=== PATIENT | male | born 1975 | race Caucasian/White ===

== ENCOUNTER 2017-09-02 19:09 | Inpatient (IN) | payer BC ==
[2017-09-02] MEDS ORDERED: ONDANSETRON 4 MG/2 ML VIAL IVP STA (21:13)
[2017-09-02] MEDS ORDERED: HYDROmorphone 2 MG/ML 1 ML SYRINGE IVP STA (21:13)
[2017-09-02] MEDS ORDERED: SODIUM CHLORIDE 0.9% 1,000 ML IV STA (21:13)
--- NOTE | 2017-09-02 21:29 | ED ---
General Adult HPI <Zeke Valladares - Last Filed: 09/02/17 22:24> - General Source: patient, RN notes reviewed Mode of arrival: ambulatory Limitations: no limitations <Reji Ruiz - Last Filed: 09/02/17 22:52> - General Chief complaint: Extremity Problem,Nontraumatic Stated complaint: Left Arm Infection Time Seen by Provider: 09/02/17 21:00 - History of Present Illness Initial comments: Patient's a 42-year-old male who presents emergency room today with a chief complaint of infection to the left elbow. He does admit that it started with bursitis 3 weeks ago. States she was given cortisone injection. He states that he noticed some redness and some swelling this past week. States he has seen Dr. Bruce and is worried about possible MRSA infection. He states he's had MRSA in the past. Patient does admit that he started Bactrim yesterday but feels that there is increased pain and swelling today to left elbow. Currently rates pain 7/10. Patient does admit that the pain is worse with any movements. He denies any other complaint currently. Patient denies any recent shortness of breath, chest pain, back pain, abdominal pain, nausea or vomiting, numbness or tingling, headaches or visual changes, or any other complaints. (Reji Ruiz) - Related Data Home Medications Medication Instructions Recorded Confirmed 5-Hydroxytryptophan (5-Htp) [5-Htp 50 mg PO DAILY 09/02/17 09/02/17 (Natrol)] Acetaminophen [Tylenol Arthritis] 650 mg PO Q4H PRN 09/02/17 09/02/17 Atorvastatin [Lipitor] 40 mg PO HS 09/02/17 09/02/17 Cholecalciferol [Vitamin D3] 2,000 unit PO DAILY 09/02/17 09/02/17 Meloxicam [Mobic] 15 mg PO DAILY 09/02/17 09/02/17 Sulfamethox-Tmp 800-160Mg [Bactrim 1 tab PO BID 09/02/17 09/02/17 DS 800-160 mg] Venlafaxine HCl [Effexor XR] 75 mg PO DAILY 09/02/17 09/02/17 rOPINIRole HCL [Requip] 1 mg PO HS 09/02/17 09/02/17 Allergies Allergy/AdvReac Type Severity Reaction Status Date / Time No Known Allergies Allergy Verified 09/02/17 21:24 Review of Systems ROS Other: All systems not noted in ROS Statement are negative. <ValladaresZeke - Last Filed: 09/02/17 22:24> ROS Other: All systems not noted in ROS Statement are negative. <Reji Ruiz - Last Filed: 09/02/17 22:52> ROS Statement: Those systems with pertinent positive or pertinent negative responses have been documented in the HPI. Past Medical History Past Medical History: No Reported History History of Any Multi-Drug Resistant Organisms: MRSA Date of last positivie culture/infection: 09-12-15 MDRO Source:: Right thigh abcess Past Surgical History: Orthopedic Surgery Additional Past Surgical History / Comment(s): brain surgery Past Anesthesia/Blood Transfusion Reactions: No Reported Reaction Past Psychological History: Anxiety Smoking Status: Never smoker Past Alcohol Use History: None Reported Past Drug Use History: None Reported - Past Family History Mother Family Medical History: No Reported History <RuizReji - Last Filed: 09/02/17 22:52> General Exam <Zeke Valladares - Last Filed: 09/02/17 22:24> Limitations: no limitations <Reji Ruiz - Last Filed: 09/02/17 22:52> - General Exam Comments Initial Comments: General: The patient is awake and alert, in no distress, and does not appear acutely ill. Neck: The neck is supple, there is no tenderness or JVD. Cardiovascular: There is a regular rate and rhythm. No murmur, rub or gallop is appreciated. Respiratory: Lungs are clear to auscultation, respirations are non-labored, breath sounds are equal. No wheezes, stridor, rales, or rhonchi. Musculoskeletal: Patient does have moderate swelling to the left elbow some redness to the posterior aspect. He shows limited range of motion with flexion and extension -10 both directions. Patient's sensations are intact with pulses equal bilaterally 2+. There is mild warmth to the posterior aspect. Mild tenderness over the posterior aspect of left elbow. Neurological: A&O x 3. CN II-XII intact, There are no obvious motor or sensory deficits. Coordination appears grossly intact. Speech is normal. Skin: There is mild redness to the posterior aspect of left elbow. No sign of the tick streaking at this time. Psychiatric: Normal mood and affect. (Reji Ruiz) Vital Signs 09/02/17 09/02/17 19:55 22:45 Temperature 98.2 F Pulse Rate 85 65 Respiratory 18 18 Rate Blood Pressure 145/95 161/80 O2 Sat by Pulse 97 95 Oximetry Medical Decision Making - Lab Data Result diagrams: 09/02/17 21:44 09/02/17 21:44 <Zeke Valladares - Last Filed: 09/02/17 22:24> - Lab Data Result diagrams: 09/02/17 21:44 09/02/17 21:44 <Reji Ruiz - Last Filed: 09/02/17 22:52> - Medical Decision Making Patient was reevaluated by myself, Dr. Valladares. Patient does have area of cellulitis left elbow approximately 8 x 12 cm. There is warmth and tenderness. Patient was already started on antibiotics as an outpatient however symptoms worsen. Case was discussed in detail with practitioner Minoo, who will admit for Dr. olsen, covering for Dr. Hubbard. Patient does not meet sepsis criteria at this time. (Zeke Valladares) - Lab Data Lab Results 09/02/17 09/02/17 09/02/17 Range/Units 21:44 21:44 21:44 WBC 10.3 (3.8-10.6) k/uL RBC 5.20 (4.30-5.90) m/uL Hgb 14.7 (13.0-17.5) gm/dL Hct 44.9 (39.0-53.0) % MCV 86.3 (80.0-100.0) fL MCH 28.2 (25.0-35.0) pg MCHC 32.7 (31.0-37.0) g/dL RDW 16.3 H (11.5-15.5) % Plt Count 234 (150-450) k/uL Neutrophils % 82 % Lymphocytes % 11 % Monocytes % 5 % Eosinophils % 1 % Basophils % 0 % Neutrophils # 8.4 H (1.3-7.7) k/uL Lymphocytes # 1.1 (1.0-4.8) k/uL Monocytes # 0.5 (0-1.0) k/uL Eosinophils # 0.1 (0-0.7) k/uL Basophils # 0.0 (0-0.2) k/uL Anisocytosis Slight PT (9.0-12.0) sec INR (<1.2) APTT (22.0-30.0) sec Sodium 139 (137-145) mmol/L Potassium 4.9 (3.5-5.1) mmol/L Chloride 104 (98-107) mmol/L Carbon Dioxide 23 (22-30) mmol/L Anion Gap 12 mmol/L BUN 27 H (9-20) mg/dL Creatinine 0.90 (0.66-1.25) mg/dL Est GFR (MDRD) Af Amer >60 (>60 ml/min/1.73 sqM) Est GFR (MDRD) Non-Af >60 (>60 ml/min/1.73 sqM) Glucose 106 H (74-99) mg/dL Plasma Lactic Acid [place] 0.7 (0.7-2.0) mmol/L Calcium 9.6 (8.4-10.2) mg/dL Total Bilirubin 0.1 L (0.2-1.3) mg/dL AST 22 (17-59) U/L ALT 39 (21-72) U/L Alkaline Phosphatase 100 (38-126) U/L Total Protein 7.2 (6.3-8.2) g/dL Albumin 4.3 (3.5-5.0) g/dL 09/02/17 Range/Units 21:44 WBC (3.8-10.6) k/uL RBC (4.30-5.90) m/uL Hgb (13.0-17.5) gm/dL Hct (39.0-53.0) % MCV (80.0-100.0) fL MCH (25.0-35.0) pg MCHC (31.0-37.0) g/dL RDW (11.5-15.5) % Plt Count (150-450) k/uL Neutrophils % % Lymphocytes % % Monocytes % % Eosinophils % % Basophils % % Neutrophils # (1.3-7.7) k/uL Lymphocytes # (1.0-4.8) k/uL Monocytes # (0-1.0) k/uL Eosinophils # (0-0.7) k/uL Basophils # (0-0.2) k/uL Anisocytosis PT 9.3 (9.0-12.0) sec INR 0.9 (<1.2) APTT 22.5 (22.0-30.0) sec Sodium (137-145) mmol/L Potassium (3.5-5.1) mmol/L Chloride (98-107) mmol/L Carbon Dioxide (22-30) mmol/L Anion Gap mmol/L BUN (9-20) mg/dL Creatinine (0.66-1.25) mg/dL Est GFR (MDRD) Af Amer (>60 ml/min/1.73 sqM) Est GFR (MDRD) Non-Af (>60 ml/min/1.73 sqM) Glucose (74-99) mg/dL Plasma Lactic Acid [place] (0.7-2.0) mmol/L Calcium (8.4-10.2) mg/dL Total Bilirubin (0.2-1.3) mg/dL AST (17-59) U/L ALT (21-72) U/L Alkaline Phosphatase (38-126) U/L Total Protein (6.3-8.2) g/dL Albumin (3.5-5.0) g/dL Disposition <Zeke Valladares - Last Filed: 09/02/17 22:24> Time of Disposition: 22:32 <Reji Ruiz - Last Filed: 09/02/17 22:52> Clinical Impression: Cellulitis, Failure of outpatient treatment Disposition: HOME SELF-CARE Condition: Stable Referrals: Florentin Hubbard MD [Primary Care Provider] - 1-2 days
[2017-09-02 21:54] LABS: Anisocytosis Slight; Basophils % (A) 0 %; Eosinophils # (A) 0.1 k/uL (0-0.7); Eosinophils % (A) 1 %; HCT 44.9 % (39.0-53.0); HGB 14.7 gm/dL (13.0-17.5); Lymphocytes # (A) 1.1 k/uL (1.0-4.8); Lymphocytes % (A) 11 %; MCH 28.2 pg (25.0-35.0); MCHC 32.7 g/dL (31.0-37.0); MCV 86.3 fL (80.0-100.0); Mean Platelet Volume 7.5; Monocytes # (A) 0.5 k/uL (0-1.0); Monocytes % (A) 5 %; Neutrophils # (A) 8.4 k/uL (1.3-7.7); Neutrophils % (A) 82 %; Platelet Count 234 k/uL (150-450); RDW 16.3 % (11.5-15.5); WBC 10.3 k/uL (3.8-10.6)
[2017-09-02 22:05] LABS: INR 0.9 (<1.2); Partial Thromboplastin Time 22.5 sec (22.0-30.0); Prothrombin Time 9.3 sec (9.0-12.0)
[2017-09-02 22:06] LABS: ALT 39 U/L (21-72); AST 22 U/L (17-59); Albumin 4.3 g/dL (3.5-5.0); Alkaline Phosphatase 100 U/L (38-126); Anion Gap 12 mmol/L; Blood Urea Nitrogen 27 mg/dL (9-20); Calcium 9.6 mg/dL (8.4-10.2); Carbon Dioxide 23 mmol/L (22-30); Chloride 104 mmol/L (98-107); Glucose 106 mg/dL (74-99); Potassium 4.9 mmol/L (3.5-5.1); Sodium 139 mmol/L (137-145); Total Bilirubin 0.1 mg/dL (0.2-1.3); Total Protein 7.2 g/dL (6.3-8.2)
[2017-09-02] MEDS ORDERED: VANCOMYCIN IV PER PHARMACY 1 EACH MISC MISCELLANE PRN (22:11)
--- NOTE | 2017-09-02 22:11 | XR ---
EXAMINATION TYPE: XR elbow complete LT DATE OF EXAM: 09/02/2017 COMPARISON: None HISTORY: Pain and swelling TECHNIQUE: 3 views. FINDINGS: There is soft tissue swelling posterior to the elbow joint. I see no joint effusion. I see no fractur e nor dislocation. Joint spaces are fairly normal. IMPRESSION: Posterior soft tissue swelling. No fracture seen.
[2017-09-02] MEDS ORDERED: VANCOMYCIN 2,000 MG in SODIUM CHLORIDE 0.9% 500 ML IVPB STA (22:18)
[2017-09-02] MEDS ORDERED: ONDANSETRON 4 MG/2 ML VIAL IVP PRN (22:52)
[2017-09-02] MEDS ORDERED: HYDROcodone/APAP 5-325MG 1 EACH TAB PO PRN (22:52)
[2017-09-02] MEDS ORDERED: IBUPROFEN 600 MG TAB PO PRN (22:52)
[2017-09-02] MEDS ORDERED: NALOXONE 0.4 MG/ML 1 ML VIAL IV PRN (22:52)
[2017-09-02] MEDS: SODIUM CHLORIDE 0.9% 1,000 ML IV SCH (23:13)
[2017-09-03] MEDS: HYDROmorphone 0.5 MG/0.5 ML SYRINGE IVP PRN ×2 (00:13→07:43)
[2017-09-03] MEDS: SODIUM CHLORIDE 0.9% 1,000 ML IV SCH ×2 (08:14→20:54)
[2017-09-03] MEDS: VANCOMYCIN 1,750 MG in SODIUM CHLORIDE 0.9% 250 ML IVPB SCH ×2 (08:15→15:20)
[2017-09-03] MEDS ORDERED: HYDROXYTRYPTOPHAN 50 MG PO SCH (09:00)
[2017-09-03] MEDS: ACETAMINOPHEN TAB 325 MG TAB PO PRN (09:13)
[2017-09-03] MEDS: VENLAFAXINE HCL ER 75 MG CAP PO SCH (09:15)
[2017-09-03] MEDS: CHOLECALCIFEROL 1,000 UNIT TAB PO SCH (09:15)
[2017-09-03] MEDS: ENOXAPARIN 40 MG/0.4 ML SYRINGE SQ SCH (09:15)
[2017-09-03 09:22] LABS: Anisocytosis Slight; Basophils % (A) 0 %; Eosinophils % (A) 0 %; HCT 45.2 % (39.0-53.0); HGB 14.2 gm/dL (13.0-17.5); Hypochromasia Slight; Lymphocytes % (A) 12 %; MCH 28.7 pg (25.0-35.0); MCHC 31.5 g/dL (31.0-37.0); MCV 91.1 fL (80.0-100.0); Mean Platelet Volume 7.4; Monocytes # (A) 0.3 k/uL (0-1.0); Monocytes % (A) 4 %; Neutrophils # (A) 7.4 k/uL (1.3-7.7); Neutrophils % (A) 83 %; Platelet Count 203 k/uL (150-450); RBC 4.97 m/uL (4.30-5.90); RDW 16.6 % (11.5-15.5); WBC 8.9 k/uL (3.8-10.6)
[2017-09-03 09:42] LABS: ALT 33 U/L (21-72); AST 19 U/L (17-59); Albumin 3.8 g/dL (3.5-5.0); Alkaline Phosphatase 92 U/L (38-126); Anion Gap 12 mmol/L; Blood Urea Nitrogen 16 mg/dL (9-20); Calcium 9.3 mg/dL (8.4-10.2); Carbon Dioxide 23 mmol/L (22-30); Chloride 105 mmol/L (98-107); Glucose 141 mg/dL (74-99); Potassium 4.5 mmol/L (3.5-5.1); Sodium 140 mmol/L (137-145); Total Bilirubin 0.4 mg/dL (0.2-1.3); Total Protein 6.5 g/dL (6.3-8.2)
[2017-09-03] MEDS ORDERED: KETOROLAC 30 MG/ML 1 ML VIAL IVP STA (09:48)
--- NOTE | 2017-09-03 10:23 | P.CNOR ---
History of Present Illness - [facility] Consult date: 09/03/17 Consult reason: other (Olecrenon bursitis left elbow) History of present illness: This is a 42-year-old male who was last seen her office on 09/01/2017 with complaint of left elbow pain. He had some pain and swelling to the elbow for the past several weeks. He states that the olecranon bursa was injected with cortisone by her family physician 1 week ago. The elbow then developed some redness and increased swelling. He was placed in a removable splint on Friday and was placed on Bactrim DS. He is advised to follow-up in our office on for reevaluation. He presented to the emergency department yesterday with worsening of his symptoms. He was admitted to internal medicine. We're consulted for orthopedic evaluation. He is currently on vancomycin. Past Medical History Past Medical History: No Reported History History of Any Multi-Drug Resistant Organisms: MRSA Year Discovered:: 09-12-15 MDRO Source:: Right thigh abcess Past Surgical History: Orthopedic Surgery Additional Past Surgical History / Comment(s): brain surgery 2011 Past Anesthesia/Blood Transfusion Reactions: No Reported Reaction Past Psychological History: Anxiety Smoking Status: Never smoker Past Alcohol Use History: None Reported Past Drug Use History: None Reported - Past Family History Mother Family Medical History: No Reported History Medications and Allergies Home Medications Medication Instructions Recorded Confirmed Type 5-Hydroxytryptophan (5-Htp) [5-Htp 50 mg PO DAILY 09/02/17 09/02/17 History (Natrol)] Acetaminophen [Tylenol Arthritis] 650 mg PO Q4H PRN 09/02/17 09/02/17 History Atorvastatin [Lipitor] 40 mg PO HS 09/02/17 09/02/17 History Cholecalciferol [Vitamin D3] 2,000 unit PO DAILY 09/02/17 09/02/17 History Meloxicam [Mobic] 15 mg PO DAILY 09/02/17 09/02/17 History Sulfamethox-Tmp 800-160Mg [Bactrim 1 tab PO BID 09/02/17 09/02/17 History DS 800-160 mg] Venlafaxine HCl [Effexor XR] 75 mg PO DAILY 09/02/17 09/02/17 History rOPINIRole HCL [Requip] 1 mg PO HS 09/02/17 09/02/17 History Allergies Allergy/AdvReac Type Severity Reaction Status Date / Time No Known Allergies Allergy Verified 09/02/17 21:24 Physical Examination This is a pleasant 42-year-old male in no acute distress. He is alert and oriented 3. Exam of the left upper extremity reveals redness and induration about the olecranon bursa which extends down about the lateral aspect of the elbow. There is slight fluctuance noted to the olecranon bursa. There is no fluctuance to the lateral forearm. He has full range of motion the elbow with minimal discomfort. There is mild pain with palpation about the lateral condyle and lateral forearm. Neurovascular status the upper extremity is intact. Results Left elbow x-rays reveal no bony abnormality. There is no fracture or dislocation noted. There is some soft tissue swelling noted laterally. - Labs Labs: Abnormal Lab Results - Last 24 Hours (Table) 09/02/17 09/02/17 09/03/17 Range/Units 21:44 21:44 08:40 RDW 16.3 H 16.6 H (11.5-15.5) % Neutrophils # 8.4 H (1.3-7.7) k/uL BUN 27 H (9-20) mg/dL Glucose 106 H (74-99) mg/dL Total Bilirubin 0.1 L (0.2-1.3) mg/dL 09/03/17 Range/Units 08:40 RDW (11.5-15.5) % Neutrophils # (1.3-7.7) k/uL BUN (9-20) mg/dL Glucose 141 H (74-99) mg/dL Total Bilirubin (0.2-1.3) mg/dL H & H 09/02/17 09/03/17 Range/Units 21:44 08:40 Hgb 14.7 14.2 (13.0-17.5) gm/dL Hct 44.9 45.2 (39.0-53.0) % Coagulation 09/02/17 Range/Units 21:44 INR 0.9 (<1.2) Result Diagrams: 09/03/17 08:40 09/03/17 08:40 Assessment and Plan (1) Olecranon bursitis of left elbow Current Visit: Yes Status: Acute Code(s): M70.22 - OLECRANON BURSITIS, LEFT ELBOW SNOMED Code(s): 442463801 (2) Cellulitis Current Visit: Yes Status: Acute Code(s): L03.90 - CELLULITIS, UNSPECIFIED SNOMED Code(s): 302332710 Plan: The clinical and x-ray findings are discussed the patient. His redness has progressed since his visit on Friday. It is recommended that he continue with the K pad for moist heat and the IV vancomycin. We will reevaluate tomorrow. If his symptoms improve we will continue on the current course of treatment. If symptoms worsen or he develops fluctuance beyond the olecranon bursa and we may need to consider incision and drainage. It is discussed with the patient that we would recommend nonsurgical versus surgical treatment if possible, taking into consideration the common wound complications associated with incision and drainage to the olecranon region. The patient understands and agrees with the current plan.
[2017-09-03] MEDS: KETOROLAC 30 MG/ML 1 ML VIAL IVP SCH ×3 (10:59→23:42)
--- NOTE | 2017-09-03 12:29 | HP ---
HISTORY AND PHYSICAL DATE OF ADMISSION: 09/02/2017 PRESENTING COMPLAINT: Left elbow swelling. HISTORY OF PRESENTING COMPLAINT: This is a very pleasant 42-year-old patient of Dr. Florentin Hubbard. Chronic stable medical conditions include anxiety, restless legs syndrome, hypercholesterolemia. Patient about 2 weeks ago developed some swelling around the left elbow. Went to see Dr. Hubbard and received a cortisone shot. For 2 weeks he was gone, came back, again got another cortisone shot. Did not feel better. Started swelling 3 days ago, went to see Dr. Bruce, [facility] in the office, was given a splint and told to come back. Patient's pain and swelling continued to get worse. Patient developed some chills, feeling warm, elbow became rather inflamed, not able to bend it and came down to the ER. Patient about the same time 2 years ago had a MRSA infection of the right thigh. Denies any injury to the elbow. Does not put pressure on the elbow, pretty active. Denies use of any recreational drugs or trauma. Patient was started on Bactrim DS as an outpatient. REVIEW OF SYSTEM: CONSTITUTIONAL: Chills, warm. HEENT: None. RESPIRATORY: None. CARDIOVASCULAR: None. GASTROINTESTINAL: None. GENITOURINARY: None. MUSCULOSKELETAL: As above. DERMATOLOGICAL: As above. LYMPHATICS: None. PSYCHIATRY: Anxiety. NEUROLOGICAL: None. PAST MEDICAL HISTORY: Right thigh MRSA, restless legs syndrome, hypercholesteremia, anxiety. PAST SURGICAL HISTORY: Brain surgery in 2010. SOCIAL HISTORY: No smoking. No recreational drugs. 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 FAMILY HISTORY: Reviewed, noncontributory to presentation. HOME MEDICATIONS: 1. 5-Hydroxytryptophan 50 mg p.o. daily. 2. Vitamin D3 two thousand units p.o. daily. 3. Tylenol Arthritis 650 mg q.4 p.r.n. 4. Effexor XR 75 mg p.o. daily. 5. Bactrim DS 1 tablet p.o. b.i.d. 6. Requip 4 mg p.o. q.h.s. 7. Mobic 50 mg p.o. daily. 8. Lipitor 40 mg p.o. q.h.s. ALLERGIES: None. PHYSICAL EXAMINATION: Vital signs on presentation, temperature 98.2, pulse 85, respiratory 18, blood pressure 145/75, pulse ox 97% on room air. GENERAL APPEARANCE: Well built, BMI 34.2, sitting up in bed, not in distress. EYES: Pupils equal, conjunctivae normal. HEENT: Oral cavity normal. NECK: JVD not raised. Mass not palpable. RESPIRATORY: Effort normal. Lungs are clear. CARDIOVASCULAR: First and second sounds are normal. No edema. ABDOMEN: Soft, nontender. Liver and spleen not palpable. LYMPHATIC: No lymph node palpable in neck or axillae. PSYCHIATRY: Alert and oriented x3. Mood and affect normal. NEUROLOGICAL: Pupils equal. Cranial nerves grossly intact. Power and sensation grossly intact. EXTREMITIES: Left elbow area is rather swollen, tender with some fluctuation. Limited range of motion of the left elbow. INVESTIGATIONS: White count 10.3, hemoglobin 14.7, increased neutrophils, potassium 4.9, BUN 27, creatinine 0.90. ASSESSMENT: 1. Acute cellulitis/bursitis of the left elbow area, patient has had 2 cortisone shots as an outpatient. Also some Bactrim DS, has failed outpatient treatment. The patient has no fever, no white count. Involvement of the joint appears to be unlikely, appears to be more superficial at this point. 2. Chronic anxiety disorder. 3. Restless leg syndrome. 4. Hypercholesteremia. PLAN: 1. Patient is put on IV vancomycin, heating pad is done. Will add NSAIDs for pain control and [place] p.r.n. for breakthrough. Dr. Bruce from [facility] and ID, Dr. Long were consulted. Care was discussed with the patient and at the bedside. Questions were answered. 2. Patient will probably need I and D given the history of MRSA and keep that in mind. MMODL / IJN: [id number] /
[2017-09-03] MEDS: NAPROXEN 250 MG TAB PO SCH ×2 (12:42→21:01)
[2017-09-03] MEDS: HYDROcodone/APAP 5-325MG 1 EACH TAB PO PRN ×3 (12:43→21:01)
[2017-09-03] MEDS: LORazepam 2 MG/ML INJ IV PRN ×2 (15:20→21:02)
[2017-09-03] MEDS: DAPTOmycin 500 MG in SODIUM CHLORIDE 0.9% 50 ML IV SCH (19:10)
[2017-09-03] MEDS: ATORVASTATIN 40 MG TAB PO SCH (21:01)
--- NOTE | 2017-09-03 22:31 | P.CONS ---
History of Present Illness - Reason for Consult Consult date: 09/03/17 - Chief Complaint Pain of left elbow - History of Present Illness Pleasant 42-year-old male known to the infectious disease service from his prior MRSA abscess of his right thigh. 2 years ago he had the sudden onset of the abscess to his right thigh required surgical incision and drainage and anterior the wound healing Center. Eventually improved is a relatively well until a few weeks ago. Sudden onset of swelling and discomfort to his left elbow occurred. This event occurred just 2 days before he was to go on a cruise, he was seen and a steroid injection was placed into the elbow area. He felt well enough for the trip and did well. Upon returning home to seek further care. The elbow did swell a bit and he again had a steroid injection. However since then it has markedly worsened with extensive swelling and discomfort to the lateral aspect of the elbow. He's had some fever without much chill. The elbow and arm itself is swollen quite a bit in the tenderness again markedly increased. Because of the markedly worsening status he was brought to the hospital and infectious disease consultation was requested. He cannot relate any specific trauma but he does work in a factory setting, but can 't recall any specific activity fall or trauma at the start of the swelling. He has not had any prior difficulties with the left elbow in the past. Review of Systems HEENT:Denies headache or acute visual change. Denies sinus or mouth discomforts. Denies neck stiffness or pain. Denies significant oral cavity pain. Denies difficulty on swallowing. Lungs: Denies significant shortness of breath, cough, sputum production, or hemoptysis. Cardiovascular: Denies significant shortness of breath, chest pain, chest wall pain, orthopnea, dyspnea on exertion, syncope Gastrointestinal:Denies nausea, vomiting, diarrhea, constipation, hematemesis, melena, hematochezia. No no significant change of bowel habit noticed. Musculoskeletal: denies significant myalgias or arthralgias. As related in the HPI pain and swelling to the left elbow Skin: As in HPI is evidence second swelling and erythema to the left arm and elbow area Neuro: Denies headache or visual change. Denies any new onset weakness or difficulty with ambulation. Denies falls or seizures. Psychiatric:Denies anxiety or depression. Endocrine: Denies significant fatigue, denies significant weight loss or weight gain. Past Medical History Past Medical History: No Reported History Additional Past Medical History / Comment(s): History of MRSA abscess to his right thigh several years ago required surgical incision and drainage. History of Any Multi-Drug Resistant Organisms: MRSA Year Discovered:: 09-12-15 MDRO Source:: Right thigh abcess Past Surgical History: Orthopedic Surgery Additional Past Surgical History / Comment(s): brain surgery 2010 Past Anesthesia/Blood Transfusion Reactions: No Reported Reaction Past Psychological History: Anxiety Additional Psychological History / Comment(s): Teresa lives in the family home with his and 2 children. Works at the [employer] in [place]. The experience. He does travel to the [facility] no other recent travel as occurred. No animal exposures. No current tobacco or alcohol use. No recreational drug use. Smoking Status: Never smoker Past Alcohol Use History: None Reported Past Drug Use History: None Reported - Past Family History Mother Family Medical History: No Reported History Medications and Allergies Home Medications and Allergies Comment(s): Current Medications Acetaminophen (Tylenol Tab) 650 mg PO Q6HR PRN PRN Reason: Mild Pain or Fever > 100.5 Last Admin: 09/03/17 09:13 Dose: 650 mg Hydrocodone Bitart/Acetaminophen ([place] 5-325) 1 each PO Q4HR PRN PRN Reason: Pain Last Admin: 09/03/17 21:01 Dose: 1 each Atorvastatin Calcium (Lipitor) 40 mg PO HS [facility] Last Admin: 09/03/17 21:01 Dose: 40 mg Cholecalciferol (Vitamin D3) 2,000 unit PO DAILY [facility] Last Admin: 09/03/17 09:15 Dose: 2,000 unit Enoxaparin Sodium (Lovenox) 40 mg SQ DAILY [facility] Last Admin: 09/03/17 09:15 Dose: 40 mg Sodium Chloride (Saline 0.9%) 1,000 mls @ 100 mls/hr IV .Q10H [facility] Last Admin: 09/03/17 20:54 Dose: 100 mls/hr Daptomycin 500 mg/ Sodium (Chloride) 50 mls @ 100 mls/hr IV Q24H [facility] Last Admin: 09/03/17 19:10 Dose: 100 mls/hr Ketorolac Tromethamine (Toradol) 15 mg IVP Q6HR [facility] Stop: 09/07/17 09:48 Last Admin: 09/03/17 17:09 Dose: 15 mg Lorazepam (Ativan) 1 mg IV Q6HR PRN PRN Reason: Anxiety Last Admin: 09/03/17 21:02 Dose: 1 mg Miscellaneous Information (Vancomycin Trough Due) 0 each MISCELLANE DIRECTED ONE Stop: 09/04/17 07:01 Naloxone HCl (Narcan) 0.2 mg IV Q2M PRN PRN Reason: Opioid Reversal Naproxen (Naprosyn) 500 mg PO BID [facility] Last Admin: 09/03/17 21:01 Dose: 500 mg Ondansetron HCl (Zofran) 4 mg IVP Q8HR PRN PRN Reason: Nausea And Vomiting Ropinirole HCl (Requip) 1 mg PO [facility] Last Admin: 09/03/17 21:01 Dose: 1 mg Venlafaxine HCl (Effexor Xr) 75 mg PO DAILY [facility] Last Admin: 09/03/17 09:15 Dose: 75 mg Home Medications Medication Instructions Recorded Confirmed Type 5-Hydroxytryptophan (5-Htp) [5-Htp 50 mg PO DAILY 09/02/17 09/02/17 History (Natrol)] Acetaminophen [Tylenol Arthritis] 650 mg PO Q4H PRN 09/02/17 09/02/17 History Atorvastatin [Lipitor] 40 mg PO HS 09/02/17 09/02/17 History Cholecalciferol [Vitamin D3] 2,000 unit PO DAILY 09/02/17 09/02/17 History Meloxicam [Mobic] 15 mg PO DAILY 09/02/17 09/02/17 History Sulfamethox-Tmp 800-160Mg [Bactrim 1 tab PO BID 09/02/17 09/02/17 History DS 800-160 mg] Venlafaxine HCl [Effexor XR] 75 mg PO DAILY 09/02/17 09/02/17 History rOPINIRole HCL [Requip] 1 mg PO HS 09/02/17 09/02/17 History Allergies Allergy/AdvReac Type Severity Reaction Status Date / Time No Known Allergies Allergy Verified 09/02/17 21:24 Physical Exam Vitals: Vital Signs Temp Pulse Pulse Resp BP BP Pulse Ox 09/03/17 15:00 97.5 F L 74 16 140/69 92 L 09/03/17 08:00 16 09/03/17 07:00 97.6 F 66 16 127/77 98 09/02/17 23:56 97.5 F L 73 16 158/90 94 L 09/02/17 23:15 97.3 F L 65 18 143/81 96 09/02/17 22:45 65 18 161/80 95 Intake and Output 09/03/17 09/03/17 09/03/17 06:59 14:59 22:59 Intake Total 250 50 Balance 250 50 Intake: Intake, IV Titration 250 50 Amount DAPTOmycin 500 mg In 50 Sodium Chloride 0.9% 50 ml @ 100 mls/hr IV Q24H [facility] Rx#:[id number] Vancomycin 1,750 mg In 250 Sodium Chloride 0.9% 250 ml @ 125 mls/hr IVPB Q8HR [facility] Rx#:[id number] Other: Voiding Method Toilet Toilet # Voids 2 Pleasant 42-year-old male with a muscular build but is overweight. HEENT: Anicteric conjunctiva are pink and moist nasal mucosa grossly intact without significant lesions, there is no thrush. Neck: The neck is supple without significant lymphadenopathy or thyromegaly. Lungs: Good bilateral air entry without significant crackles or wheezing. There is no significant bronchial sounds. There is no egophony or dullness. Heart: Regular rate and rhythm with an audible S1-S2, no S3 no S4. There is no significant murmur click or rub, PMI was nondisplaced. Abdomen: Positive bowel sounds soft and nontender without palpable masses or organomegaly. There was no guarding or rebound. Extremities: The right upper extremity is without any abnormality no significant petechiae or telangiectasia. The left arm is evidence of the extensive swelling around the elbow. There is evidence of some discomfort from range of motion of the elbow but there is no distinct tenderness over the joint itself however there is distinct swelling and tenderness over the BURSA THAT IS THE WARMTH FLUCTUANCE AND TENDERNESS. THERE IS A DISTINCT SWELLING ABOUT THE FOREARM IN THE ARM ITSELF No splinter hemorrhages were noted. The lower extremities are free from significant edema. The peripheral pulses were 2+ and symmetric. Neuro: Awake alert oriented to person place and time. There are no acute new gross focal sensory motor deficits. Results CBC & Chem 7: 09/03/17 08:40 09/03/17 08:40 Labs: Abnormal Lab Results - Last 24 Hours (Table) 09/02/17 09/02/17 09/03/17 Range/Units 21:44 21:44 08:40 RDW 16.3 H 16.6 H (11.5-15.5) % Neutrophils # 8.4 H (1.3-7.7) k/uL BUN 27 H (9-20) mg/dL Glucose 106 H (74-99) mg/dL Total Bilirubin 0.1 L (0.2-1.3) mg/dL 09/03/17 Range/Units 08:40 RDW (11.5-15.5) % Neutrophils # (1.3-7.7) k/uL BUN (9-20) mg/dL Glucose 141 H (74-99) mg/dL Total Bilirubin (0.2-1.3) mg/dL Laboratory Results WBC 8.9 k/uL (3.8-10.6) 09/03/17 08:40 RBC 4.97 m/uL (4.30-5.90) 09/03/17 08:40 Hgb 14.2 gm/dL (13.0-17.5) 09/03/17 08:40 Hct 45.2 % (39.0-53.0) 09/03/17 08:40 MCV 91.1 fL (80.0-100.0) 09/03/17 08:40 MCH 28.7 pg (25.0-35.0) 09/03/17 08:40 MCHC 31.5 g/dL (31.0-37.0) 09/03/17 08:40 RDW 16.6 % (11.5-15.5) H 09/03/17 08:40 Plt Count 203 k/uL (150-450) 09/03/17 08:40 Neutrophils % 83 % 09/03/17 08:40 Lymphocytes % 12 % 09/03/17 08:40 Monocytes % 4 % 09/03/17 08:40 Eosinophils % 0 % 09/03/17 08:40 Basophils % 0 % 09/03/17 08:40 Neutrophils # 7.4 k/uL (1.3-7.7) 09/03/17 08:40 Lymphocytes # 1.0 k/uL (1.0-4.8) 09/03/17 08:40 Monocytes # 0.3 k/uL (0-1.0) 09/03/17 08:40 Eosinophils # 0.0 k/uL (0-0.7) 09/03/17 08:40 Basophils # 0.0 k/uL (0-0.2) 09/03/17 08:40 Hypochromasia Slight 09/03/17 08:40 Anisocytosis Slight 09/03/17 08:40 PT 9.3 sec (9.0-12.0) 09/02/17 21:44 INR 0.9 (<1.2) 09/02/17 21:44 APTT 22.5 sec (22.0-30.0) 09/02/17 21:44 Sodium 140 mmol/L (137-145) 09/03/17 08:40 Potassium 4.5 mmol/L (3.5-5.1) 09/03/17 08:40 Chloride 105 mmol/L (98-107) 09/03/17 08:40 Carbon Dioxide 23 mmol/L (22-30) 09/03/17 08:40 Anion Gap 12 mmol/L 09/03/17 08:40 BUN 16 mg/dL (9-20) 09/03/17 08:40 Creatinine 0.82 mg/dL (0.66-1.25) 09/03/17 08:40 Est GFR (MDRD) Af Amer >60 (>60 ml/min/1.73 sqM) 09/03/17 08:40 Est GFR (MDRD) Non-Af >60 (>60 ml/min/1.73 sqM) 09/03/17 08:40 Glucose 141 mg/dL (74-99) H 09/03/17 08:40 Plasma Lactic Acid [place] 0.7 mmol/L (0.7-2.0) 09/02/17 21:44 Calcium 9.3 mg/dL (8.4-10.2) 09/03/17 08:40 Total Bilirubin 0.4 mg/dL (0.2-1.3) 09/03/17 08:40 AST 19 U/L (17-59) 09/03/17 08:40 ALT 33 U/L (21-72) 09/03/17 08:40 Alkaline Phosphatase 92 U/L (38-126) 09/03/17 08:40 Total Protein 6.5 g/dL (6.3-8.2) 09/03/17 08:40 Albumin 3.8 g/dL (3.5-5.0) 09/03/17 08:40 Assessment and Plan (1) Olecranon bursitis of left elbow Narrative/Plan: 42-year-old male with history of prior second abscess onto his right thigh the records surgical incision and drainage and wound care now presents for significant pain and swelling to his left elbow. The patient has had 2 injections into that site with what appears to be a olecranon bursitis that is now become severely infected. Prior culture had evidence of MRSA with an CARLOZ to vancomycin of 2 in counseling antibiotic therapy was changed to daptomycin while cultures are process. Initially made nothing by mouth and will have further surgical evaluation in the morning and if there is not significant resolution within need surgical drainage of the infected bursa. Elevation and warm compresses are being utilized. Pain control with anti-inflammatory Toradol is of significant importance to help with the swelling and discomfort. He is up-to-date with his tetanus vaccine multivitamin with zinc is added basic laboratories are requested and will monitor. Current Visit: Yes Status: Acute Code(s): M70.22 - OLECRANON BURSITIS, LEFT ELBOW SNOMED Code(s): 432967191 (2) Cellulitis of left arm Current Visit: Yes Status: Acute Code(s): L03.114 - CELLULITIS OF LEFT UPPER LIMB SNOMED Code(s): 073390240 (3) Failure of outpatient treatment Current Visit: Yes Status: Acute Code(s): Z78.9 - OTHER SPECIFIED HEALTH STATUS SNOMED Code(s): 292964946
[2017-09-04] MEDS: HYDROcodone/APAP 5-325MG 1 EACH TAB PO PRN ×5 (04:49→20:50)
[2017-09-04] MEDS: SODIUM CHLORIDE 0.9% 1,000 ML IV SCH ×2 (06:40→16:05)
[2017-09-04] MEDS: KETOROLAC 30 MG/ML 1 ML VIAL IVP SCH ×3 (06:44→18:02)
[2017-09-04] MEDS ORDERED: VANCOMYCIN TROUGH DUE 1 EACH MISC MISCELLANE ONE (07:00)
[2017-09-04] MEDS: NAPROXEN 250 MG TAB PO SCH ×2 (08:12→20:49)
[2017-09-04] MEDS: VENLAFAXINE HCL ER 75 MG CAP PO SCH (08:12)
[2017-09-04 09:58] LABS: Anion Gap 10 mmol/L; Blood Urea Nitrogen 18 mg/dL (9-20); C Reactive Protein 17.7 mg/L (<10.0); Calcium 8.9 mg/dL (8.4-10.2); Carbon Dioxide 22 mmol/L (22-30); Chloride 109 mmol/L (98-107); Glucose 77 mg/dL (74-99); Sodium 141 mmol/L (137-145)
[2017-09-04 10:04] LABS: Potassium 4.9 mmol/L (3.5-5.1)
--- NOTE | 2017-09-04 11:00 | P.PN ---
Subjective Progress Note Date: 09/04/17 Principal diagnosis: Olecranon bursitis left elbow. Cellulitis left upper extremity. This is a 42-year-old male admitted with olecranon bursitis and cellulitis to the left arm. He was evaluated by infectious disease yesterday. His antibiotics were changed to daptomycin. He has been afebrile. He reports no new symptoms. He continues to have pain and swelling about the elbow, upper arm and forearm. Objective - Vital Signs Vital signs: Vital Signs Temp 98.5 F 09/04/17 07:00 Pulse 70 09/04/17 07:00 Resp 16 09/04/17 07:00 BP 130/84 09/04/17 07:00 Pulse Ox 97 09/04/17 07:00 Intake & Output 09/03/17 09/04/17 09/04/17 18:59 06:59 18:59 Intake Total 250 550 Balance 250 550 Intake: Intake, IV Titration 250 50 Amount DAPTOmycin 500 mg In 50 Sodium Chloride 0.9% 50 ml @ 100 mls/hr IV Q24H [facility] Rx#:[id number] Vancomycin 1,750 mg In 250 Sodium Chloride 0.9% 250 ml @ 125 mls/hr IVPB Q8HR [facility] Rx#:[id number] Oral 500 Other: Voiding Method Toilet Toilet # Voids 2 - Exam This is a pleasant 42-year-old male in no acute distress. He is alert and oriented 3. Exam of the left upper extremity reveals that his erythema to the elbow and forearm has improved. He continues to have erythema to the upper arm. There is mild to moderate fluctuance of the olecranon bursa. There is [id number] swelling to the forearm and upper arm. He has full motion of the elbow. He has full wrist and finger motion without difficulty or pain. Neurovascular status to the upper extremity is intact. - Labs CBC & Chem 7: 09/03/17 08:40 09/04/17 08:02 Labs: Abnormal Lab Results - Last 24 Hours (Table) 09/04/17 Range/Units 08:02 Chloride 109 H (98-107) mmol/L C-Reactive Protein 17.7 H (<10.0) mg/L Microbiology - Last 24 Hours (Table) 09/02/17 21:44 Blood Culture - Preliminary Blood No Growth after 24 hours Assessment and Plan (1) Olecranon bursitis of left elbow Current Visit: Yes Status: Acute Code(s): M70.22 - OLECRANON BURSITIS, LEFT ELBOW SNOMED Code(s): 514273717 (2) Cellulitis Current Visit: Yes Status: Acute Code(s): L03.90 - CELLULITIS, UNSPECIFIED SNOMED Code(s): 561468712 Plan: The clinical findings are discussed the patient. I have discussed the case with Dr. Long' nurse practitioner. The patient is nothing by mouth for possible incision and drainage. I have reviewed the case with Dr. Barkley who has agreed to surgical debridement if necessary. I will wait to hear back from Dr. Long with his final recommendations. The patient is tentatively scheduled for an incision and drainage today with Dr. Barkley.
[2017-09-04] MEDS: MULTIVITAMINS, THERA 1 EACH TAB PO SCH (11:13)
[2017-09-04] MEDS: ENOXAPARIN 40 MG/0.4 ML SYRINGE SQ SCH (11:13)
[2017-09-04] MEDS: CHOLECALCIFEROL 1,000 UNIT TAB PO SCH (11:13)
[2017-09-04] MEDS ORDERED: LIDOCAINE 1% INJ 10MG/ML (20 ML MDV) SQ STA (12:23)
[2017-09-04] MEDS: LORazepam 2 MG/ML INJ IV PRN (16:34)
--- NOTE | 2017-09-04 17:06 | PN ---
PROGRESS NOTE DATE OF SERVICE: 09/04/17 ATTENDING NOTE: The patient seen and examined by me. I discussed with nurse practitioner, Ms. Lutz. The patient presented with acute bursitis in the left elbow. The patient is feeling slightly better. Family is at the bedside. PHYSICAL EXAMINATION: Afebrile. Pulse 77, respiratory rate 16, blood pressure 130/84, pulse ox 97% on room air. On exam lungs are clear. Cardiovascular 1st and 2nd sounds normal. Decreased pain and swelling around the left elbow. Looks still swollen and tender. INVESTIGATIONS: ESR 17, CRP 17.7, blood cultures pending. ASSESSMENT: Acute severe cellulitis, bursitis of the left elbow area, having failed outpatient treatment. PLAN: Continue patient on IV daptomycin. Awaiting I and D later this afternoon. Care was discussed the patient and family at the bedside. PARI / ENOCHN: [id number] /
[2017-09-04] MEDS: DAPTOmycin 500 MG in SODIUM CHLORIDE 0.9% 50 ML IV SCH (18:02)
--- NOTE | 2017-09-04 20:36 | P.PN ---
Progress Note - Text Progress Note Date: 09/04/17 DATE OF SERVICE: 09/04/2017 PRESENTING COMPLAINT: Left elbow swelling HISTORY OF PRESENT ILLNESS: 42-year-old male about 2 weeks ago developed some swelling around his left elbow went to see primary care physician received a cortisone shot. For the past 2 weeks he is repeatedly returned to the physician to get more cortisone. Does not feel better. Continued to swell about 3 days ago and went to see Dr. [facility]. Given a splint told to come back. Pain and swelling continued to get worse. Developed chills feeling warm elbow rather inflamed not able to bend it came down to the emergency department. Admitted for left elbow cellulitis. INTERVAL HISTORY: 09/04/2017: Patient sitting up in bed family at the bedside. Elbow continues to be tender swollen but somewhat improved. Warm compresses and Toradol help with the pain. Dr. Long changed antibiotics to daptomycin. Patient is tentatively scheduled for incision and drainage later today with Dr. Barkley. Currently nothing by mouth. REVIEW OF SYSTEMS: Done for constitutional ,cardiovascular, GI, pulmonary with relevant findings as above. CURRENT MEDICATIONS Tylenol, [place], Lipitor, cholecalciferol, daptomycin, Lovenox, Toradol, Ativan, multivitamin, Naprosyn, Zofran, Requip, Effexor XR. PHYSICAL EXAM VITAL SIGNS: Temperature 98.5, pulse 70, respiratory rate 16, blood pressure 130/84, oxygen saturation 97% on room air GENERAL APPEARANCE: Sitting up in bed, not in distress. HENT: Normocephalic, JVD not raised. Mass not palpable. Oral cavity normal, external appearance of ears and nose normal. EYES:Pupils equal. Conjunctiva normal. RESPIRATORY: Respiratory effort normal. Lungs clear to auscultation. CARDIOVASCULAR: First and second sounds normal. No edema. ABDOMEN: Soft. Liver and spleen not palpable. No tenderness. No mass palpable. PSYCHIATRY: Alert and oriented x3. Mood and affect normal. EXTREMITIES: Left elbow with fluctuance noted warm red tender to palpation. INVESTIGATIONS: LABS: C-reactive protein 17.7 ASSESSMENT: -Acute cellulitis/per site is left elbow area, had 2 cortisone shots outpatient and antibiotic, hence failed outpatient treatment. No fever no white count. -Chronic anxiety disorder. 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 -Hypercholesterolemia. PLAN: Continue patient on IV daptomycin, await I&D later this afternoon with Dr. Barkley. Plan of care discussed in detail with family at the bedside they're agreeable. We will follow closely. MANPOWER DEVELOPMENT SPECIALIST MANAGER statement: Patient was seen and examined by nurse practitioner Minoo Lutz and all elements of the case discussed with attending Dr. Gray
[2017-09-04] MEDS: ATORVASTATIN 40 MG TAB PO SCH (20:50)
--- NOTE | 2017-09-04 21:49 | P.PN ---
Subjective Progress Note Date: 09/04/17 Principal diagnosis: cellulitis, septic bursitis left elbow Procedure: After informed consent was obtained, the left elbow was prepped with chlorhexidine utilizing sterile technique. Using an 18G needle and 10cc syringe , approximately 7cc of aspirate was obtained at the left elbow/olecranon bursa while maintaining sterile technique. The aspirate, which was a thick bloody purulence, was sent for C/S, gram stain, cell count and crystal analysis. The elbow was then placed in a sterile compressive bandage. The patient tolerated the procedure well without complication. Objective - Vital Signs Vital signs: Vital Signs Temp 98.3 F 09/04/17 15:00 Pulse 66 09/04/17 15:00 Resp 16 09/04/17 15:00 BP 138/75 09/04/17 15:00 Pulse Ox 94 L 09/04/17 15:00 Intake & Output 09/04/17 09/04/17 09/05/17 06:59 18:59 06:59 Intake Total 550 800 240 Balance 550 800 240 Intake: Intake, IV Titration 50 Amount DAPTOmycin 500 mg In 50 Sodium Chloride 0.9% 50 ml @ 100 mls/hr IV Q24H [facility] Rx#:[id number] Oral 500 800 240 Other: Voiding Method Toilet Toilet # Voids 2 2 1 # Bowel Movements 0 - Labs CBC & Chem 7: 09/03/17 08:40 09/04/17 08:02 Labs: Abnormal Lab Results - Last 24 Hours (Table) 09/04/17 09/04/17 Range/Units 08:02 11:18 ESR 17 H (0-15) mm/hr Chloride 109 H (98-107) mmol/L C-Reactive Protein 17.7 H (<10.0) mg/L Microbiology - Last 24 Hours (Table) 09/02/17 21:44 Blood Culture - Preliminary Blood No Growth after 24 hours
--- NOTE | 2017-09-04 22:56 | P.PN ---
Subjective Progress Note Date: 09/04/17 Principal diagnosis: Pain and swelling left elbow Pleasant 42-year-old male known to the infectious disease service from his prior MRSA abscess of his right thigh. 2 years ago he had the sudden onset of the abscess to his right thigh required surgical incision and drainage and anterior the wound healing Center. Eventually improved is a relatively well until a few weeks ago. Sudden onset of swelling and discomfort to his left elbow occurred. This event occurred just 2 days before he was to go on a cruise, he was seen and a steroid injection was placed into the elbow area. He felt well enough for the trip and did well. Upon returning home to seek further care. The elbow did swell a bit and he again had a steroid injection. However since then it has markedly worsened with extensive swelling and discomfort to the lateral aspect of the elbow. He's had some fever without much chill. The elbow and arm itself is swollen quite a bit in the tenderness again markedly increased. Because of the markedly worsening status he was brought to the hospital and infectious disease consultation was requested. He cannot relate any specific trauma but he does work in a factory setting, but can 't recall any specific activity fall or trauma at the start of the swelling. He has not had any prior difficulties with the left elbow in the past. 09/04/2017 patient continues to have some pain and swelling to the left elbow area. Does have some pain in range of motion of the elbow much more discomfort and swelling is noted at the forearm and proximal to the elbow posterior. Fever is improved Objective - Vital Signs Vital signs: Vital Signs Temp 98.3 F 09/04/17 22:32 Pulse 87 09/04/17 22:32 Resp 16 09/04/17 22:32 BP 152/74 09/04/17 22:32 Pulse Ox 93 L 09/04/17 22:32 Intake & Output 09/04/17 09/04/17 09/05/17 06:59 18:59 06:59 Intake Total 550 800 240 Balance 550 800 240 Intake: Intake, IV Titration 50 Amount DAPTOmycin 500 mg In 50 Sodium Chloride 0.9% 50 ml @ 100 mls/hr IV Q24H [facility] Rx#:[id number] Oral 500 800 240 Other: Voiding Method Toilet Toilet # Voids 2 2 1 # Bowel Movements 0 - Exam Pleasant 42-year-old male with a muscular build but is overweight. HEENT: Anicteric conjunctiva are pink and moist nasal mucosa grossly intact without significant lesions, there is no thrush. Neck: The neck is supple without significant lymphadenopathy or thyromegaly. Lungs: Good bilateral air entry without significant crackles or wheezing. There is no significant bronchial sounds. There is no egophony or dullness. Heart: Regular rate and rhythm with an audible S1-S2, no S3 no S4. There is no significant murmur click or rub, PMI was nondisplaced. Abdomen: Positive bowel sounds soft and nontender without palpable masses or organomegaly. There was no guarding or rebound. Extremities: The right upper extremity is without any abnormality no significant petechiae or telangiectasia. The left arm is evidence of the extensive swelling around the elbow. There is evidence of some discomfort from range of motion of the elbow but there is no distinct tenderness over the joint itself however there is distinct swelling and tenderness over the posterior aspect of the arm just proximal to the elbow, forearm itself is also swollen. There is fluctuance over the posterior aspect of the elbow over the Olecrnon bursa. No splinter hemorrhages were noted. The lower extremities are free from significant edema. The peripheral pulses were 2+ and symmetric. Neuro: Awake alert oriented to person place and time. There are no acute new gross focal sensory motor deficits. - Labs CBC & Chem 7: 09/03/17 08:40 09/04/17 08:02 Labs: Abnormal Lab Results - Last 24 Hours (Table) 09/04/17 09/04/17 Range/Units 08:02 11:18 ESR 17 H (0-15) mm/hr Chloride 109 H (98-107) mmol/L C-Reactive Protein 17.7 H (<10.0) mg/L Microbiology - Last 24 Hours (Table) 09/02/17 21:44 Blood Culture - Preliminary Blood No Growth after 24 hours Laboratory Results WBC 8.9 k/uL (3.8-10.6) 09/03/17 08:40 RBC 4.97 m/uL (4.30-5.90) 09/03/17 08:40 Hgb 14.2 gm/dL (13.0-17.5) 09/03/17 08:40 Hct 45.2 % (39.0-53.0) 09/03/17 08:40 MCV 91.1 fL (80.0-100.0) 09/03/17 08:40 MCH 28.7 pg (25.0-35.0) 09/03/17 08:40 MCHC 31.5 g/dL (31.0-37.0) 09/03/17 08:40 RDW 16.6 % (11.5-15.5) H 09/03/17 08:40 Plt Count 203 k/uL (150-450) 09/03/17 08:40 Neutrophils % 83 % 09/03/17 08:40 Lymphocytes % 12 % 09/03/17 08:40 Monocytes % 4 % 09/03/17 08:40 Eosinophils % 0 % 09/03/17 08:40 Basophils % 0 % 09/03/17 08:40 Neutrophils # 7.4 k/uL (1.3-7.7) 09/03/17 08:40 Lymphocytes # 1.0 k/uL (1.0-4.8) 09/03/17 08:40 Monocytes # 0.3 k/uL (0-1.0) 09/03/17 08:40 Eosinophils # 0.0 k/uL (0-0.7) 09/03/17 08:40 Basophils # 0.0 k/uL (0-0.2) 09/03/17 08:40 Hypochromasia Slight 09/03/17 08:40 Anisocytosis Slight 09/03/17 08:40 ESR 17 mm/hr (0-15) H 09/04/17 11:18 PT 9.3 sec (9.0-12.0) 09/02/17 21:44 INR 0.9 (<1.2) 09/02/17 21:44 APTT 22.5 sec (22.0-30.0) 09/02/17 21:44 Sodium 141 mmol/L (137-145) 09/04/17 08:02 Potassium 4.9 mmol/L (3.5-5.1) 09/04/17 08:02 Chloride 109 mmol/L (98-107) H 09/04/17 08:02 Carbon Dioxide 22 mmol/L (22-30) 09/04/17 08:02 Anion Gap 10 mmol/L 09/04/17 08:02 BUN 18 mg/dL (9-20) 09/04/17 08:02 Creatinine 0.80 mg/dL (0.66-1.25) 09/04/17 08:02 Est GFR (MDRD) Af Amer >60 (>60 ml/min/1.73 sqM) 09/04/17 08:02 Est GFR (MDRD) Non-Af >60 (>60 ml/min/1.73 sqM) 09/04/17 08:02 Glucose 77 mg/dL (74-99) 09/04/17 08:02 Plasma Lactic Acid Wesly 0.7 mmol/L (0.7-2.0) 09/02/17 21:44 Calcium 8.9 mg/dL (8.4-10.2) 09/04/17 08:02 Total Bilirubin 0.4 mg/dL (0.2-1.3) 09/03/17 08:40 AST 19 U/L (17-59) 09/03/17 08:40 ALT 33 U/L (21-72) 09/03/17 08:40 Alkaline Phosphatase 92 U/L (38-126) 09/03/17 08:40 C-Reactive Protein 17.7 mg/L (<10.0) H 09/04/17 08:02 Total Protein 6.5 g/dL (6.3-8.2) 09/03/17 08:40 Albumin 3.8 g/dL (3.5-5.0) 09/03/17 08:40 Microbiology 09/02/17 21:44 Blood Blood Culture - Preliminary No Growth after 24 hours Assessment and Plan (1) Olecranon bursitis of left elbow Narrative/Plan: 42-year-old male with history of prior second abscess onto his right thigh the records surgical incision and drainage and wound care now presents for significant pain and swelling to his left elbow. The patient has had 2 injections into that site with what appears to be a olecranon bursitis that is now become severely infected. Prior culture had evidence of MRSA with an CARLOZ to vancomycin of 2 in counseling antibiotic therapy was changed to daptomycin while cultures are process. Initially made nothing by mouth and will have further surgical evaluation in the morning and if there is not significant resolution within need surgical drainage of the infected bursa. Elevation and warm compresses are being utilized. Pain control with anti-inflammatory Toradol is of significant importance to help with the swelling and discomfort. He is up-to-date with his tetanus vaccine multivitamin with zinc is added basic laboratories are requested and will monitor. On 09/04/2017 the patient has had some mild improvement. The dense erythema subtly improved. Still has extensive swelling and discomfort. Fortunately pain control is improving. We have discussed the case with orthopedics and have asked for an aspiration the bursa for culture and crystal analysis which will be performed later today if possible. Current Visit: Yes Status: Acute Code(s): M70.22 - OLECRANON BURSITIS, LEFT ELBOW SNOMED Code(s): 272977551 (2) Cellulitis of left arm Current Visit: Yes Status: Acute Code(s): L03.114 - CELLULITIS OF LEFT UPPER LIMB SNOMED Code(s): 268008201 (3) Failure of outpatient treatment Current Visit: Yes Status: Acute Code(s): Z78.9 - OTHER SPECIFIED HEALTH STATUS SNOMED Code(s): 260923967
[2017-09-05] MEDS: KETOROLAC 30 MG/ML 1 ML VIAL IVP SCH ×5 (00:05→23:01)
[2017-09-05] MEDS: SODIUM CHLORIDE 0.9% 1,000 ML IV SCH ×3 (00:06→23:03)
[2017-09-05] MEDS: HYDROcodone/APAP 5-325MG 1 EACH TAB PO PRN ×6 (02:01→21:13)
[2017-09-05] MEDS: LORazepam 2 MG/ML INJ IV PRN ×2 (02:38→11:30)
[2017-09-05] MEDS: ENOXAPARIN 40 MG/0.4 ML SYRINGE SQ SCH (09:43)
[2017-09-05] MEDS: NAPROXEN 250 MG TAB PO SCH ×2 (09:45→21:14)
[2017-09-05] MEDS: VENLAFAXINE HCL ER 75 MG CAP PO SCH (09:45)
[2017-09-05] MEDS: CHOLECALCIFEROL 1,000 UNIT TAB PO SCH (09:46)
[2017-09-05 09:56] LABS: Anion Gap 11 mmol/L; Blood Urea Nitrogen 17 mg/dL (9-20); Calcium 9.3 mg/dL (8.4-10.2); Carbon Dioxide 23 mmol/L (22-30); Chloride 106 mmol/L (98-107); Glucose 82 mg/dL (74-99); Potassium 5.1 mmol/L (3.5-5.1); Sodium 140 mmol/L (137-145)
[2017-09-05] MEDS: MULTIVITAMINS, THERA 1 EACH TAB PO SCH (11:30)
--- NOTE | 2017-09-05 14:38 | P.PN ---
Subjective Progress Note Date: 09/05/17 Principal diagnosis: cellulitis, septic bursitis left elbow Patient seen at bedside today. He is being trated for left elbow cellulitis/ septic bursitis. He feels improved some today. I performd an aspiration yesterday which is showing gram pos cocci. He has continued on IV antibiotics and elevation. he denies new complaints. he has no numbnes, tingling, fever, chills. Objective - Vital Signs Vital signs: Vital Signs Temp 97.7 F 09/05/17 07:00 Pulse 65 09/05/17 09:54 Resp 18 09/05/17 09:54 BP 138/73 09/05/17 07:00 Pulse Ox 96 09/05/17 07:00 Intake & Output 09/04/17 09/05/17 09/05/17 18:59 06:59 18:59 Intake Total 800 740 350 Balance 800 740 350 Intake: Oral 800 740 350 Other: Voiding Method Toilet Toilet # Voids 2 1 # Bowel Movements 0 - Exam Exam of the left upper extremity reveals that his erythema to the elbow and forearm continues to improved. He has octavio improved erythema to the upper arm. There is mild fluctuance of the olecranon bursa. There is mild swelling to the forearm and upper arm. He has full motion of the elbow. He has full wrist and finger motion without difficulty or pain. Neurovascular status to the upper extremity is intact - Constitutional General appearance: Present: no acute distress - Psychiatric Psychiatric: Present: A&O x's 3, appropriate affect - Labs CBC & Chem 7: 09/03/17 08:40 09/05/17 07:46 Labs: Microbiology - Last 24 Hours (Table) 09/04/17 15:50 Gram Stain - Preliminary Elbow - Left Wound Culture - Preliminary 09/04/17 15:50 Anaerobic Culture - Preliminary Elbow - Left 09/02/17 21:44 Blood Culture - Preliminary Blood No Growth after 48 hours Assessment and Plan (1) Cellulitis of left arm Narrative/Plan: He has improved some. Cultures are showing gram pos cocci thus far. We will have him continue IV antibiotics per ID, elevation, pain management and monitor closely. Current Visit: Yes Status: Acute Code(s): L03.114 - CELLULITIS OF LEFT UPPER LIMB SNOMED Code(s): 570014535 Time with Patient: Less than 30
[2017-09-05] MEDS: DAPTOmycin 500 MG in SODIUM CHLORIDE 0.9% 50 ML IV SCH (17:03)
--- NOTE | 2017-09-05 17:16 | P.PN ---
Progress Note - Text Progress Note Date: 09/05/17 DATE OF SERVICE: 09/05/2017 PRESENTING COMPLAINT: Left elbow swelling HISTORY OF PRESENT ILLNESS: 42-year-old male about 2 weeks ago developed some swelling around his left elbow went to see primary care physician received a cortisone shot. For the past 2 weeks he is repeatedly returned to the physician to get more cortisone. Does not feel better. Continued to swell about 3 days ago and went to see Dr. [facility]. Given a splint told to come back. Pain and swelling continued to get worse. Developed chills feeling warm elbow rather inflamed not able to bend it came down to the emergency department. Admitted for left elbow cellulitis. INTERVAL HISTORY: 09/05/2017: Sitting up in bed resting quietly. Elbow continues to be very tender was tapped by orthopedics yesterday. Cultures were sent. Continue with warm compresses and Toradol. Antibiotics therapy continues in the form of daptomycin. Ambulatory in the room and hallway, tolerating his diet eating between 50-75% of his meals. Last BM prior to admission. 09/04/2017: Patient sitting up in bed family at the bedside. Elbow continues to be tender swollen but somewhat improved. Warm compresses and Toradol help with the pain. Dr. Long changed antibiotics to daptomycin. Patient is tentatively scheduled for incision and drainage later today with Dr. Barkley. Currently nothing by mouth. REVIEW OF SYSTEMS: Done for constitutional ,cardiovascular, GI, pulmonary with relevant findings as above. CURRENT MEDICATIONS Tylenol, [place], Lipitor, cholecalciferol, daptomycin, Lovenox, Toradol, Ativan, multivitamin, Naprosyn, Zofran, Requip, Effexor XR. PHYSICAL EXAM VITAL SIGNS: Temperature 98.5, pulse 70, respiratory rate 16, blood pressure 130/84, oxygen saturation 97% on room air GENERAL APPEARANCE: Sitting up in bed, not in distress. HENT: Normocephalic, JVD not raised. Mass not palpable. Oral cavity normal, external appearance of ears and nose normal. EYES:Pupils equal. Conjunctiva normal. RESPIRATORY: Respiratory effort normal. Lungs clear to auscultation. CARDIOVASCULAR: First and second sounds normal. No edema. ABDOMEN: Soft. Liver and spleen not palpable. No tenderness. No mass palpable. PSYCHIATRY: Alert and oriented x3. Mood and affect normal. EXTREMITIES: Left elbow with fluctuance noted warm red tender to palpation, less swollen today. Has improved range of motion of the elbow. INVESTIGATIONS: LABS: BMP unremarkable Left elbow culture pending. ASSESSMENT: -Acute cellulitis/per site is left elbow area, had 2 cortisone shots outpatient and antibiotic, hence failed outpatient treatment. No fever no white count. -Chronic anxiety disorder. -Restless leg syndrome. -Hypercholesterolemia. PLAN: Continue patient on IV daptomycin, and anti-inflammatories, await definitive culture results from fluid obtained from the left elbow. Plan of care discussed in detail with family at the bedside they're agreeable. Once culture results are finalized. Antibiotics adjusted we'll continue with discharge planning. We will follow closely. 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 Gray
[2017-09-05] MEDS: ATORVASTATIN 40 MG TAB PO SCH (21:14)
--- NOTE | 2017-09-05 21:37 | PN ---
PROGRESS NOTE DATE OF SERVICE: 09/05/2017 ATTENDING NOTE: This patient was seen and examined by me. I discussed the case with the nurse practitioner Ms. Lutz. Patient was admitted with acute cellulitis, bursitis of the left elbow, status post I&D today. I do not have a formal operative report. He feels better; is able to bend his elbow better. No fever. No diarrhea. PHYSICAL EXAMINATION: Afebrile. Pulse 80, respiration 18, blood pressure 130/76, pulse ox 94% on room air. Dressing on the left elbow. Lungs are clear. CARDIOVASCULAR: First and second sounds normal. Potassium 5.1. Micro is growing presumptive Staph aureus. ASSESSMENT: Acute cellulitis and acute bursitis of the left elbow, status post incision and drainage. PLAN: Continue with IV daptomycin, naproxen. Final determination of antibiotics per Dr. Long. Care was discussed with the patient. Questions were answered. Pain is controlled. MMODL / IJN: [id number] /
--- NOTE | 2017-09-05 23:30 | P.PN ---
Subjective Progress Note Date: 09/05/17 Principal diagnosis: Pain and swelling left elbow Pleasant 42-year-old male known to the infectious disease service from his prior MRSA abscess of his right thigh. 2 years ago he had the sudden onset of the abscess to his right thigh required surgical incision and drainage and anterior the wound healing Center. Eventually improved is a relatively well until a few weeks ago. Sudden onset of swelling and discomfort to his left elbow occurred. This event occurred just 2 days before he was to go on a cruise, he was seen and a steroid injection was placed into the elbow area. He felt well enough for the trip and did well. Upon returning home to seek further care. The elbow did swell a bit and he again had a steroid injection. However since then it has markedly worsened with extensive swelling and discomfort to the lateral aspect of the elbow. He's had some fever without much chill. The elbow and arm itself is swollen quite a bit in the tenderness again markedly increased. Because of the markedly worsening status he was brought to the hospital and infectious disease consultation was requested. He cannot relate any specific trauma but he does work in a factory setting, but can 't recall any specific activity fall or trauma at the start of the swelling. He has not had any prior difficulties with the left elbow in the past. 09/04/2017 patient continues to have some pain and swelling to the left elbow area. Does have some pain in range of motion of the elbow much more discomfort and swelling is noted at the forearm and proximal to the elbow posterior. Fever is improved 09/05/2017 patient has had improvement since the aspiration. The swelling over the elbow and forearm have improved but continues to have pain and swelling in the arm posterior lateral to the elbow. His fever has improved Objective - Vital Signs Vital signs: Vital Signs Temp 97.7 F 09/05/17 22:27 Pulse 68 09/05/17 22:27 Resp 18 09/05/17 22:27 BP 123/71 09/05/17 22:27 Pulse Ox 93 L 09/05/17 22:27 Intake & Output 09/05/17 09/05/17 09/06/17 06:59 18:59 06:59 Intake Total 740 850 Balance 740 850 Intake: Oral 740 850 Other: Voiding Method Toilet Toilet Toilet # Voids 1 2 1 # Bowel Movements 0 - Exam Pleasant 42-year-old male with a muscular build but is overweight. HEENT: Anicteric conjunctiva are pink and moist nasal mucosa grossly intact without significant lesions, there is no thrush. Neck: The neck is supple without significant lymphadenopathy or thyromegaly. Lungs: Good bilateral air entry without significant crackles or wheezing. There is no significant bronchial sounds. There is no egophony or dullness. Heart: Regular rate and rhythm with an audible S1-S2, no S3 no S4. There is no significant murmur click or rub, PMI was nondisplaced. Abdomen: Positive bowel sounds soft and nontender without palpable masses or organomegaly. There was no guarding or rebound. Extremities: The right upper extremity is without any abnormality no significant petechiae or telangiectasia. The left arm is evidence of the extensive swelling around the elbow. There is evidence of some discomfort from range of motion of the elbow but there is no distinct tenderness over the joint itself however there is distinct swelling and tenderness over the posterior aspect of the arm just proximal to the elbow, forearm itself is also swollen. The fluctuance over the Olecrnon bursa improved since the aspiration. No splinter hemorrhages were noted. The lower extremities are free from significant edema. The peripheral pulses were 2+ and symmetric. Neuro: Awake alert oriented to person place and time. There are no acute new gross focal sensory motor deficits. - Labs CBC & Chem 7: 09/03/17 08:40 09/05/17 07:46 Labs: Microbiology - Last 24 Hours (Table) 09/04/17 15:50 Gram Stain - Preliminary Elbow - Left Wound Culture - Preliminary Presumptive Staph aureus 09/04/17 15:50 Anaerobic Culture - Preliminary Elbow - Left 09/02/17 21:44 Blood Culture - Preliminary Blood No Growth after 48 hours Laboratory Results WBC 8.9 k/uL (3.8-10.6) 09/03/17 08:40 RBC 4.97 m/uL (4.30-5.90) 09/03/17 08:40 Hgb 14.2 gm/dL (13.0-17.5) 09/03/17 08:40 Hct 45.2 % (39.0-53.0) 09/03/17 08:40 MCV 91.1 fL (80.0-100.0) 09/03/17 08:40 MCH 28.7 pg (25.0-35.0) 09/03/17 08:40 MCHC 31.5 g/dL (31.0-37.0) 09/03/17 08:40 RDW 16.6 % (11.5-15.5) H 09/03/17 08:40 Plt Count 203 k/uL (150-450) 09/03/17 08:40 Neutrophils % 83 % 09/03/17 08:40 Lymphocytes % 12 % 09/03/17 08:40 Monocytes % 4 % 09/03/17 08:40 Eosinophils % 0 % 09/03/17 08:40 Basophils % 0 % 09/03/17 08:40 Neutrophils # 7.4 k/uL (1.3-7.7) 09/03/17 08:40 Lymphocytes # 1.0 k/uL (1.0-4.8) 09/03/17 08:40 Monocytes # 0.3 k/uL (0-1.0) 09/03/17 08:40 Eosinophils # 0.0 k/uL (0-0.7) 09/03/17 08:40 Basophils # 0.0 k/uL (0-0.2) 09/03/17 08:40 Hypochromasia Slight 09/03/17 08:40 Anisocytosis Slight 09/03/17 08:40 ESR 17 mm/hr (0-15) H 09/04/17 11:18 PT 9.3 sec (9.0-12.0) 09/02/17 21:44 INR 0.9 (<1.2) 09/02/17 21:44 APTT 22.5 sec (22.0-30.0) 09/02/17 21:44 Sodium 140 mmol/L (137-145) 09/05/17 07:46 Potassium 5.1 mmol/L (3.5-5.1) 09/05/17 07:46 Chloride 106 mmol/L (98-107) 09/05/17 07:46 Carbon Dioxide 23 mmol/L (22-30) 09/05/17 07:46 Anion Gap 11 mmol/L 09/05/17 07:46 BUN 17 mg/dL (9-20) 09/05/17 07:46 Creatinine 0.75 mg/dL (0.66-1.25) 09/05/17 07:46 Est GFR (MDRD) Af Amer >60 (>60 ml/min/1.73 sqM) 09/05/17 07:46 Est GFR (MDRD) Non-Af >60 (>60 ml/min/1.73 sqM) 09/05/17 07:46 Glucose 82 mg/dL (74-99) 09/05/17 07:46 Plasma Lactic Acid Wesly 0.7 mmol/L (0.7-2.0) 09/02/17 21:44 Calcium 9.3 mg/dL (8.4-10.2) 09/05/17 07:46 Total Bilirubin 0.4 mg/dL (0.2-1.3) 09/03/17 08:40 AST 19 U/L (17-59) 09/03/17 08:40 ALT 33 U/L (21-72) 09/03/17 08:40 Alkaline Phosphatase 92 U/L (38-126) 09/03/17 08:40 C-Reactive Protein 17.7 mg/L (<10.0) H 09/04/17 08:02 Total Protein 6.5 g/dL (6.3-8.2) 09/03/17 08:40 Albumin 3.8 g/dL (3.5-5.0) 09/03/17 08:40 Synovial Source Left Elbow 09/04/17 15:50 Synovial Crystals See comment 09/04/17 15:50 Microbiology 09/04/17 15:50 Elbow - Left Gram Stain - Preliminary 09/04/17 15:50 Elbow - Left Wound Culture - Preliminary Presumptive Staph aureus 09/04/17 15:50 Elbow - Left Anaerobic Culture - Preliminary 09/02/17 21:44 Blood Blood Culture - Preliminary No Growth after 48 hours Assessment and Plan (1) Olecranon bursitis of left elbow Narrative/Plan: 42-year-old male with history of prior second abscess onto his right thigh the records surgical incision and drainage and wound care now presents for significant pain and swelling to his left elbow. The patient has had 2 injections into that site with what appears to be a olecranon bursitis that is now become severely infected. Prior culture had evidence of MRSA with an CARLOZ to vancomycin of 2 in counseling antibiotic therapy was changed to daptomycin while cultures are process. Initially made nothing by mouth and will have further surgical evaluation in the morning and if there is not significant resolution within need surgical drainage of the infected bursa. Elevation and warm compresses are being utilized. Pain control with anti-inflammatory Toradol is of significant importance to help with the swelling and discomfort. He is up-to-date with his tetanus vaccine multivitamin with zinc is added basic laboratories are requested and will monitor. On 09/04/2017 the patient has had some mild improvement. The dense erythema subtly improved. Still has extensive swelling and discomfort. Fortunately pain control is improving. We have discussed the case with orthopedics and have asked for an aspiration the bursa for culture and crystal analysis which will be performed later today if possible. 09/05/2017 aspiration as occurred. Gram stain positive for gram-positive cocci in clusters highly likely that he will continue to have a staphylococcal infection as he's had in the past. Hopefully the aspiration will allow improvement of the bursal infection without an open drainage procedure. Given the prior history daptomycin is being utilized and monitored closely. The patient has a history of prior MRSA infection the past and has not been utilizing bleach baths much as of late. As he improves should get back to this regiment and should be at least once to twice per week. Current Visit: Yes Status: Acute Code(s): M70.22 - OLECRANON BURSITIS, LEFT ELBOW SNOMED Code(s): 763704470 (2) Cellulitis of left arm Current Visit: Yes Status: Acute Code(s): L03.114 - CELLULITIS OF LEFT UPPER LIMB SNOMED Code(s): 245818541 (3) Failure of outpatient treatment Current Visit: Yes Status: Acute Code(s): Z78.9 - OTHER SPECIFIED HEALTH STATUS SNOMED Code(s): 653894914
[2017-09-06] MEDS: HYDROcodone/APAP 5-325MG 1 EACH TAB PO PRN ×6 (00:58→22:10)
[2017-09-06] MEDS: KETOROLAC 30 MG/ML 1 ML VIAL IVP SCH ×3 (05:11→17:32)
[2017-09-06] MEDS: ENOXAPARIN 40 MG/0.4 ML SYRINGE SQ SCH (08:08)
[2017-09-06] MEDS: NAPROXEN 250 MG TAB PO SCH ×2 (08:13→22:10)
[2017-09-06] MEDS: VENLAFAXINE HCL ER 75 MG CAP PO SCH (08:14)
[2017-09-06] MEDS: CHOLECALCIFEROL 1,000 UNIT TAB PO SCH (08:14)
[2017-09-06 08:31] LABS: Anion Gap 11 mmol/L; Blood Urea Nitrogen 19 mg/dL (9-20); Calcium 9.5 mg/dL (8.4-10.2); Carbon Dioxide 25 mmol/L (22-30); Chloride 103 mmol/L (98-107); Glucose 87 mg/dL (74-99); Potassium 5.1 mmol/L (3.5-5.1); Sodium 139 mmol/L (137-145)
[2017-09-06 08:54] LABS: Anisocytosis Slight; Basophils % (A) 0 %; Eosinophils # (A) 0.2 k/uL (0-0.7); Eosinophils % (A) 2 %; HGB 13.6 gm/dL (13.0-17.5); Lymphocytes # (A) 1.5 k/uL (1.0-4.8); Lymphocytes % (A) 17 %; MCH 27.8 pg (25.0-35.0); MCV 89.7 fL (80.0-100.0); Mean Platelet Volume 7.5; Monocytes # (A) 0.5 k/uL (0-1.0); Monocytes % (A) 6 %; Neutrophils # (A) 6.8 k/uL (1.3-7.7); Neutrophils % (A) 74 %; Platelet Count 232 k/uL (150-450); RDW 16.8 % (11.5-15.5); WBC 9.1 k/uL (3.8-10.6)
[2017-09-06 10:27] LABS: Erythrocyte Sedimentation Rate 19 mm/hr (0-15)
[2017-09-06] MEDS: MULTIVITAMINS, THERA 1 EACH TAB PO SCH (11:13)
--- NOTE | 2017-09-06 14:15 | P.PN ---
Subjective Progress Note Date: 09/06/17 Principal diagnosis: cellulitis, septic bursitis left elbow Patient seen at bedside today. He is being treated for left elbow cellulitis/ septic bursitis. He feels he continues to improve. An aspiration obtained two days ago is showing gram positive cocci. He has continued on IV antibiotics and elevation. He denies new complaints. He has no numbness, tingling, fever, chills. Objective - Vital Signs Vital signs: Vital Signs Temp 98.5 F 09/06/17 06:54 Pulse 68 09/06/17 08:15 Resp 16 09/06/17 08:15 BP 127/75 09/06/17 06:54 Pulse Ox 96 09/06/17 06:54 Intake & Output 09/05/17 09/06/17 09/06/17 18:59 06:59 18:59 Intake Total 850 500 Balance 850 500 Intake: Oral 850 500 Other: Voiding Method Toilet Toilet Toilet # Voids 2 1 - Exam Exam of the left upper extremity reveals that his erythema to the elbow and forearm continues to improve. He has some improved erythema to the upper arm. There is mild fluctuance of the olecranon bursa. There is mild improved swelling to the forearm and upper arm. He has full motion of the elbow. He has full wrist and finger motion without difficulty or pain. Neurovascular status to the upper extremity is intact - Constitutional General appearance: Present: no acute distress - Psychiatric Psychiatric: Present: A&O x's 3, appropriate affect, intact judgment & insight - Labs CBC & Chem 7: 09/06/17 07:52 09/06/17 07:52 Labs: Abnormal Lab Results - Last 24 Hours (Table) 09/06/17 Range/Units 07:52 RDW 16.8 H (11.5-15.5) % ESR 19 H (0-15) mm/hr Microbiology - Last 24 Hours (Table) 09/02/17 21:44 Blood Culture - Preliminary Blood No Growth after 72 hours 09/04/17 15:50 Gram Stain - Preliminary Elbow - Left Wound Culture - Preliminary Presumptive Staph aureus Assessment and Plan (1) Cellulitis of left arm Narrative/Plan: He continues to improve on IV antibiotics. He will continue IV antibiotics per ID, elevation, pain management and monitor closely. Current Visit: Yes Status: Acute Priority: Medium Code(s): L03.114 - CELLULITIS OF LEFT UPPER LIMB SNOMED Code(s): 225573533 Time with Patient: Less than 30
[2017-09-06] MEDS: DAPTOmycin 500 MG in SODIUM CHLORIDE 0.9% 50 ML IV SCH (17:32)
--- NOTE | 2017-09-06 17:38 | PN ---
PROGRESS NOTE DATE OF SERVICE: 09/06/2017 This 42-year-old gentleman with a past history of multiple medical problems was admitted with left elbow cellulitis. MRSA was suspected. Patient had history of MRSA in the right thigh, which required surgical incision and drainage. No chest pain. No palpitations. No fever. EXAM: Alert and oriented x3. Pulse 71, blood pressure 143/80, respirations 16, temperature 98 degrees, pulse ox 94% room air. HEENT: Conjunctivae normal. NECK: No jugular venous distention. CARDIOVASCULAR: S1, S2. RESPIRATORY: Breath sounds diminished in the bases. no rhonchi, no crackles. ABDOMEN: Soft, nontender. LEGS: No edema, no cyanosis. EXAMINATION OF THE LEFT ELBOW: Cellulitis present. NERVOUS SYSTEM: No focal deficits. LABS: ESR 19. Cultures presumptive Staph. ASSESSMENT: 1. Left elbow cellulitis, acute bursitis, possibly Staph infections, status post incision and drainage. 2. History of Methicillin-resistant Staphylococcus aureus previously. 3. History of anxiety. RECOMMENDATIONS AND DISCUSSION: I recommend to continue current management and symptomatic treatment as this time. I recommend to continue the antibiotics and await final culture report and closely follow with Infectious Disease. Guarded prognosis because of multiple complex medical issues. Further recommendations to follow. MMODL / IJN: [id number] /
[2017-09-06] MEDS: LORazepam 2 MG/ML INJ IV PRN (22:10)
[2017-09-06] MEDS: ATORVASTATIN 40 MG TAB PO SCH (22:11)
[2017-09-07] MEDS: KETOROLAC 30 MG/ML 1 ML VIAL IVP SCH ×2 (00:50→06:45)
[2017-09-07] MEDS: HYDROcodone/APAP 5-325MG 1 EACH TAB PO PRN ×5 (05:14→20:18)
[2017-09-07] MEDS: ENOXAPARIN 40 MG/0.4 ML SYRINGE SQ SCH (08:50)
[2017-09-07] MEDS: CHOLECALCIFEROL 1,000 UNIT TAB PO SCH (08:51)
[2017-09-07] MEDS: NAPROXEN 250 MG TAB PO SCH ×2 (08:51→20:18)
[2017-09-07] MEDS: VENLAFAXINE HCL ER 75 MG CAP PO SCH (08:52)
[2017-09-07] MEDS: MULTIVITAMINS, THERA 1 EACH TAB PO SCH (08:53)
[2017-09-07 09:35] LABS: Anion Gap 14 mmol/L; Blood Urea Nitrogen 19 mg/dL (9-20); Calcium 9.7 mg/dL (8.4-10.2); Carbon Dioxide 23 mmol/L (22-30); Chloride 100 mmol/L (98-107); Glucose 143 mg/dL (74-99); Sodium 137 mmol/L (137-145)
[2017-09-07] MEDS: ACETAMINOPHEN TAB 325 MG TAB PO PRN ×2 (10:54→18:25)
--- NOTE | 2017-09-07 13:54 | P.PN ---
Subjective Progress Note Date: 09/07/17 Principal diagnosis: cellulitis, septic bursitis left elbow Patient seen at bedside today. He is being treated for left elbow cellulitis/ septic bursitis. He feels he continues to improve daily. An aspiration obtained three days ago has shown staph aureus. He has continued on IV antibiotics and elevation. He denies new complaints. He has no numbness, tingling, fever, chills. Objective - Vital Signs Vital signs: Vital Signs Temp 98.0 F 09/07/17 06:29 Pulse 74 09/07/17 08:54 Resp 16 09/07/17 08:54 BP 123/77 09/07/17 06:29 Pulse Ox 94 L 09/07/17 06:29 Intake & Output 09/06/17 09/07/17 09/07/17 18:59 06:59 18:59 Intake Total 900 400 Balance 900 400 Intake: Oral 900 400 Other: Voiding Method Toilet Toilet Toilet # Voids 2 2 - Exam Exam of the left upper extremity reveals that his erythema to the elbow and forearm continues to improve and almost resolved. Improvement with erythema to the upper arm as well. There is mild fluctuance of the olecranon bursa. There is improved swelling to the forearm and upper arm. He has full motion of the elbow. He has full wrist and finger motion without difficulty or pain. Neurovascular status to the upper extremity is intact - Constitutional General appearance: Present: no acute distress - Psychiatric Psychiatric: Present: A&O x's 3, appropriate affect, intact judgment & insight - Labs CBC & Chem 7: 09/06/17 07:52 09/07/17 08:29 Labs: Abnormal Lab Results - Last 24 Hours (Table) 09/07/17 Range/Units 08:29 Glucose 143 H (74-99) mg/dL Microbiology - Last 24 Hours (Table) 09/02/17 21:44 Blood Culture - Preliminary Blood No Growth after 96 hours 09/04/17 15:50 Anaerobic Culture - Preliminary Elbow - Left 09/04/17 15:50 Gram Stain - Final Elbow - Left Wound Culture - Final Staphylococcus aureus Assessment and Plan (1) Cellulitis of left arm Narrative/Plan: He continues to improve on IV antibiotics. He will continue IV antibiotics per ID, elevation, pain management and monitor closely. Expect that he should be able to discharge in the next 1-2 days. Current Visit: Yes Status: Acute Priority: Medium Code(s): L03.114 - CELLULITIS OF LEFT UPPER LIMB SNOMED Code(s): 687598305 Time with Patient: Less than 30
[2017-09-07] MEDS: DAPTOmycin 500 MG in SODIUM CHLORIDE 0.9% 50 ML IV SCH (18:26)
[2017-09-07] MEDS: ATORVASTATIN 40 MG TAB PO SCH (20:18)
[2017-09-07] MEDS: LORazepam 2 MG/ML INJ IV PRN (20:22)
--- NOTE | 2017-09-07 22:37 | PN ---
PROGRESS NOTE DATE OF SERVICE: 09/07/2017 INTERVAL HISTORY: This 42-year-old gentleman who was admitted with left elbow cellulitis and MSSA grown from the culture notes. The patient is on IV antibiotics, daptomycin. No chest pain. No palpitations. No fever. Orthopedics and infectious disease following the patient closely. EXAM: Alert and oriented times three. Pulse 95, blood pressure 147/84, respirations 16, temperature 98.6, pulse ox 92% on room air. HEENT: Conjunctivae normal. Neck: No jugular venous distention. Cardiovascular: S1, S2 muffled. Respirations: Breath sounds diminished in the bases. No rhonchi and no crackles. Abdomen soft, nontender. Legs no edema. No swelling. central nervous system: No focal deficits. Examination of the left elbow shows left elbow cellulitis present. LAB STUDIES: CBC within normal limits. BMP noted. ASSESSMENT: 1. Left elbow cellulitis, acute bursitis with MSSA, status post incision and drainage. 2. On IV antibiotics. 3. History of anxiety. 4. History of Methicillin-resistant Staphylococcus aureus previously. RECOMMENDATIONS AND DISCUSSION: Recommend to continue current medications, IV antibiotics. Continue with symptomatic treatment. Closely follow with Infectious Disease. Guarded prognosis. Further recommendations to follow. Plan of care discussed with the patient. MMODL / IJN: [id number] /
[2017-09-08] MEDS: HYDROcodone/APAP 5-325MG 1 EACH TAB PO PRN ×5 (01:36→21:08)
[2017-09-08] MEDS: ENOXAPARIN 40 MG/0.4 ML SYRINGE SQ SCH (07:24)
[2017-09-08] MEDS: CHOLECALCIFEROL 1,000 UNIT TAB PO SCH (07:55)
[2017-09-08] MEDS: VENLAFAXINE HCL ER 75 MG CAP PO SCH (07:55)
[2017-09-08] MEDS: NAPROXEN 250 MG TAB PO SCH ×2 (07:55→20:22)
[2017-09-08] MEDS: LORazepam 2 MG/ML INJ IV PRN ×2 (07:59→21:09)
[2017-09-08 08:35] LABS: Anion Gap 11 mmol/L; Blood Urea Nitrogen 21 mg/dL (9-20); Calcium 9.6 mg/dL (8.4-10.2); Carbon Dioxide 27 mmol/L (22-30); Chloride 101 mmol/L (98-107); Glucose 92 mg/dL (74-99); Potassium 5.2 mmol/L (3.5-5.1); Sodium 139 mmol/L (137-145)
--- NOTE | 2017-09-08 09:48 | P.PN ---
Subjective Progress Note Date: 09/08/17 Principal diagnosis: Cellulitis Left elbow The patient is a 42-year-old male who is being treated for a left elbow cellulitis/septic bursitis. The patient states that he has continued to improve until yesterday when he noticed an increased redness to the lateral aspect of his elbow and forearm. He underwent an aspiration of the olecranon bursa last week that showed staph aureus on culture. He is currently on Daptomycin per infectious disease. He is continue to elevate and use the K pad for moist heat. He denies any other new complaints. He denies fever, chills, rigors, shortness breath, chest pain, and abdominal pain today. Objective - Vital Signs Vital signs: Vital Signs Temp 97.3 F L 09/08/17 07:00 Pulse 65 09/08/17 07:00 Resp 18 09/08/17 07:00 BP 119/82 09/08/17 07:00 Pulse Ox 96 09/08/17 07:00 Intake & Output 09/07/17 09/08/17 09/08/17 18:59 06:59 18:59 Intake Total 1150 1150 Balance 1150 1150 Intake: Oral 1150 1150 Other: Voiding Method Toilet # Voids 3 2 - Exam The patient is a 42-year-old male who is in no acute distress. He is alert and oriented 3. Exam of the left upper extremity reveals slight erythema and swelling extending to the distal third of the forearm. There is no redness over the olecranon bursa. There is improved swelling to the elbow and posterior arm. He has full range of motion of the elbow. He has full wrist and finger range of motion without difficulty. Circulatory and neurological status is intact. - Labs CBC & Chem 7: 09/06/17 07:52 09/08/17 07:58 Labs: Abnormal Lab Results - Last 24 Hours (Table) 09/08/17 Range/Units 07:58 Potassium 5.2 H (3.5-5.1) mmol/L BUN 21 H (9-20) mg/dL Microbiology - Last 24 Hours (Table) 09/02/17 21:44 Blood Culture - Preliminary Blood No Growth after 120 hours Assessment and Plan (1) Cellulitis of left arm Current Visit: Yes Status: Acute Priority: Medium Code(s): L03.114 - CELLULITIS OF LEFT UPPER LIMB SNOMED Code(s): 767369673 (2) Olecranon bursitis of left elbow Current Visit: Yes Status: Acute Code(s): M70.22 - OLECRANON BURSITIS, LEFT ELBOW SNOMED Code(s): 631517720 Plan: The clinical findings were discussed with the patient. He will continue IV antibiotics per infectious disease. Continue elevation and K pad to the left elbow. The nursing staff was instructed to landy the redness on his arm. No abscess or fluid collection is present. No surgical intervention is planned at this time. We will continue to follow the patient closely and make further recommendations as needed.
[2017-09-08] MEDS ORDERED: RX INFO: IV CONTRAST WAS GIVEN 1 EACH MISC MISCELLANE PRN (13:33)
[2017-09-08] MEDS: MULTIVITAMINS, THERA 1 EACH TAB PO SCH (14:23)
--- NOTE | 2017-09-08 15:24 | CT ---
EXAMINATION TYPE: CT elbow LT w con DATE OF EXAM: 09/08/2017 COMPARISON: Left elbow x-ray from 6 days ago. HISTORY: Left elbow swelling and pain, R/O abscess. CT DLP: 1437.7 mGycm Automated exposure control for dose reduction was used. CONTRAST: Performed with IV Contrast, patient injected with 100 mL of Omnipaque 300. FINDINGS: Exam is markedly suboptimal due to technique as imaging is performed with elbow adjacent to body. In addition Field of view cut off area of clinical concern in repeat sequencing had to be performed afte r contrast bolus had passed. There is large thin-walled fluid collection at level of the olecranon measuring approximately 5.8 x 1 .7 cm axial image 71. Craniocaudal length of collection is roughly 5.0 cm. There is ill-defined fluid extending proximally through the superficial fascia. Smaller fluid collections noted near level of d istal humerus are noted near axial image 50 for reference series 22. There is moderate ill-defined fl uid and fat stranding along the posterior aspect. No suspicious ossific destruction is seen. No acute fracture is noted. Poor opacification of vessels also is present. IMPRESSION: MARKEDLY SUBOPTIMAL STUDY, LARGE OLECRANON FLUID COLLECTION COULD REFLECT BURSITIS, INFECTIVE BURSITI S CANNOT BE EXCLUDED. MULTIFOCAL ABSCESSES CANNOT BE EXCLUDED.
[2017-09-08] MEDS: DAPTOmycin 500 MG in SODIUM CHLORIDE 0.9% 50 ML IV SCH (17:38)
[2017-09-08] MEDS: MORPHINE SULFATE 4 MG/ML SYRINGE IVP PRN ×2 (19:39→23:38)
[2017-09-08] MEDS: ATORVASTATIN 40 MG TAB PO SCH (20:23)
[2017-09-08] MEDS: ceFAZolin IN SWFI 2 GM/20 ML SYRINGE IVP SCH (23:27)
--- NOTE | 2017-09-09 00:10 | P.PN ---
Subjective Progress Note Date: 09/08/17 Principal diagnosis: Pain and swelling left elbow Pleasant 42-year-old male known to the infectious disease service from his prior MRSA abscess of his right thigh. 2 years ago he had the sudden onset of the abscess to his right thigh required surgical incision and drainage and anterior the wound healing Center. Eventually improved is a relatively well until a few weeks ago. Sudden onset of swelling and discomfort to his left elbow occurred. This event occurred just 2 days before he was to go on a cruise, he was seen and a steroid injection was placed into the elbow area. He felt well enough for the trip and did well. Upon returning home to seek further care. The elbow did swell a bit and he again had a steroid injection. However since then it has markedly worsened with extensive swelling and discomfort to the lateral aspect of the elbow. He's had some fever without much chill. The elbow and arm itself is swollen quite a bit in the tenderness again markedly increased. Because of the markedly worsening status he was brought to the hospital and infectious disease consultation was requested. He cannot relate any specific trauma but he does work in a factory setting, but can 't recall any specific activity fall or trauma at the start of the swelling. He has not had any prior difficulties with the left elbow in the past. 09/04/2017 patient continues to have some pain and swelling to the left elbow area. Does have some pain in range of motion of the elbow much more discomfort and swelling is noted at the forearm and proximal to the elbow posterior. Fever is improved 09/05/2017 patient has had improvement since the aspiration. The swelling over the elbow and forearm have improved but continues to have pain and swelling in the arm posterior lateral to the elbow. His fever has improved 09/08/2017 the patient relates he was doing somewhat better now over the last 24 hours is again had a marked worsening of the infection to the left elbow area. There is increased swelling to the arm elbow and forearm. His pain is increased. Low-grade fevers are noted he is discontent that he has had significant worsening. Objective - Vital Signs Vital signs: Vital Signs Temp 97.0 F L 09/08/17 15:00 Pulse 96 09/08/17 15:00 Resp 18 09/08/17 15:00 BP 118/77 09/08/17 15:00 Pulse Ox 92 L 09/08/17 15:00 Intake & Output 09/08/17 09/08/17 09/09/17 06:59 18:59 06:59 Intake Total 1150 1080 Balance 1150 1080 Intake: Oral 1150 1080 Other: # Voids 2 2 - Exam Pleasant 42-year-old male with a muscular build but is overweight. HEENT: Anicteric conjunctiva are pink and moist nasal mucosa grossly intact without significant lesions, there is no thrush. Neck: The neck is supple without significant lymphadenopathy or thyromegaly. Lungs: Good bilateral air entry without significant crackles or wheezing. There is no significant bronchial sounds. There is no egophony or dullness. Heart: Regular rate and rhythm with an audible S1-S2, no S3 no S4. There is no significant murmur click or rub, PMI was nondisplaced. Abdomen: Positive bowel sounds soft and nontender without palpable masses or organomegaly. There was no guarding or rebound. Extremities: The right upper extremity is without any abnormality no significant petechiae or telangiectasia. The left arm is evidence of the extensive swelling around the elbow. There is evidence of some discomfort from range of motion of the elbow but there is no distinct tenderness over the joint itself . The prior improvement is now worsened considerably. The left arm is measuring greater than 4 cm greater than the right. Left forearm is 2 cm greater than the right. And there is some fluctuance is easily palpated over the olecranon bursa. The fluctuance over the Olecrnon bursa is markedly worsened. No splinter hemorrhages were noted. The lower extremities are free from significant edema. The peripheral pulses were 2+ and symmetric. Neuro: Awake alert oriented to person place and time. There are no acute new gross focal sensory motor deficits. - Labs CBC & Chem 7: 09/06/17 07:52 09/08/17 07:58 Labs: Abnormal Lab Results - Last 24 Hours (Table) 09/08/17 Range/Units 07:58 Potassium 5.2 H (3.5-5.1) mmol/L BUN 21 H (9-20) mg/dL Microbiology - Last 24 Hours (Table) 09/04/17 15:50 Anaerobic Culture - Final Elbow - Left 09/02/17 21:44 Blood Culture - Final Blood No Growth after 144 hours Laboratory Results WBC 9.1 k/uL (3.8-10.6) 09/06/17 07:52 RBC 4.90 m/uL (4.30-5.90) 09/06/17 07:52 Hgb 13.6 gm/dL (13.0-17.5) 09/06/17 07:52 Hct 44.0 % (39.0-53.0) 09/06/17 07:52 MCV 89.7 fL (80.0-100.0) 09/06/17 07:52 MCH 27.8 pg (25.0-35.0) 09/06/17 07:52 MCHC 31.0 g/dL (31.0-37.0) 09/06/17 07:52 RDW 16.8 % (11.5-15.5) H 09/06/17 07:52 Plt Count 232 k/uL (150-450) 09/06/17 07:52 Neutrophils % 74 % 09/06/17 07:52 Lymphocytes % 17 % 09/06/17 07:52 Monocytes % 6 % 09/06/17 07:52 Eosinophils % 2 % 09/06/17 07:52 Basophils % 0 % 09/06/17 07:52 Neutrophils # 6.8 k/uL (1.3-7.7) 09/06/17 07:52 Lymphocytes # 1.5 k/uL (1.0-4.8) 09/06/17 07:52 Monocytes # 0.5 k/uL (0-1.0) 09/06/17 07:52 Eosinophils # 0.2 k/uL (0-0.7) 09/06/17 07:52 Basophils # 0.0 k/uL (0-0.2) 09/06/17 07:52 Hypochromasia Slight 09/03/17 08:40 Anisocytosis Slight 09/06/17 07:52 ESR 19 mm/hr (0-15) H 09/06/17 07:52 PT 9.3 sec (9.0-12.0) 09/02/17 21:44 INR 0.9 (<1.2) 09/02/17 21:44 APTT 22.5 sec (22.0-30.0) 09/02/17 21:44 Sodium 139 mmol/L (137-145) 09/08/17 07:58 Potassium 5.2 mmol/L (3.5-5.1) H 09/08/17 07:58 Chloride 101 mmol/L (98-107) 09/08/17 07:58 Carbon Dioxide 27 mmol/L (22-30) 09/08/17 07:58 Anion Gap 11 mmol/L 09/08/17 07:58 BUN 21 mg/dL (9-20) H 09/08/17 07:58 Creatinine 0.85 mg/dL (0.66-1.25) 09/08/17 07:58 Est GFR (MDRD) Af Amer >60 (>60 ml/min/1.73 sqM) 09/08/17 07:58 Est GFR (MDRD) Non-Af >60 (>60 ml/min/1.73 sqM) 09/08/17 07:58 Glucose 92 mg/dL (74-99) 09/08/17 07:58 Plasma Lactic Acid Wesly 0.7 mmol/L (0.7-2.0) 09/02/17 21:44 Calcium 9.6 mg/dL (8.4-10.2) 09/08/17 07:58 Total Bilirubin 0.4 mg/dL (0.2-1.3) 09/03/17 08:40 AST 19 U/L (17-59) 09/03/17 08:40 ALT 33 U/L (21-72) 09/03/17 08:40 Alkaline Phosphatase 92 U/L (38-126) 09/03/17 08:40 C-Reactive Protein 17.7 mg/L (<10.0) H 09/04/17 08:02 Total Protein 6.5 g/dL (6.3-8.2) 09/03/17 08:40 Albumin 3.8 g/dL (3.5-5.0) 09/03/17 08:40 Synovial Source Left Elbow 09/04/17 15:50 Synovial Crystals See comment 09/04/17 15:50 Microbiology 09/04/17 15:50 Elbow - Left Anaerobic Culture - Final 09/02/17 21:44 Blood Blood Culture - Final No Growth after 144 hours 09/04/17 15:50 Elbow - Left Gram Stain - Final 09/04/17 15:50 Elbow - Left Wound Culture - Final Staphylococcus aureus Assessment and Plan (1) Olecranon bursitis of left elbow Narrative/Plan: 42-year-old male with history of prior second abscess onto his right thigh the records surgical incision and drainage and wound care now presents for significant pain and swelling to his left elbow. The patient has had 2 injections into that site with what appears to be a olecranon bursitis that is now become severely infected. Prior culture had evidence of MRSA with an CARLOZ to vancomycin of 2 in counseling antibiotic therapy was changed to daptomycin while cultures are process. Initially made nothing by mouth and will have further surgical evaluation in the morning and if there is not significant resolution within need surgical drainage of the infected bursa. Elevation and warm compresses are being utilized. Pain control with anti-inflammatory Toradol is of significant importance to help with the swelling and discomfort. He is up-to-date with his tetanus vaccine multivitamin with zinc is added basic laboratories are requested and will monitor. On 09/04/2017 the patient has had some mild improvement. The dense erythema subtly improved. Still has extensive swelling and discomfort. Fortunately pain control is improving. We have discussed the case with orthopedics and have asked for an aspiration the bursa for culture and crystal analysis which will be performed later today if possible. 09/05/2017 aspiration as occurred. Gram stain positive for gram-positive cocci in clusters highly likely that he will continue to have a staphylococcal infection as he's had in the past. Hopefully the aspiration will allow improvement of the bursal infection without an open drainage procedure. Given the prior history daptomycin is being utilized and monitored closely. The patient has a history of prior MRSA infection the past and has not been utilizing bleach baths much as of late. As he improves should get back to this regiment and should be at least once to twice per week. 09/08/2017 patient was having significant improvement but now has had a marked decline of his status. There is the significant increase in swelling to the left elbow area as well as to the arm and forearm with increased pain. Is also marked erythema to the forearm. With the significant changes a computed tomography scan to the site has been requested. The orthopedic PA has been consulted given the marked abnormality to the CAT scan the patient is in need of surgical incision and drainage to the site. Patient is made nothing by mouth for a.m. surgery. Current Visit: Yes Status: Acute Code(s): M70.22 - OLECRANON BURSITIS, LEFT ELBOW SNOMED Code(s): 718361987 (2) Cellulitis of left arm Current Visit: Yes Status: Acute Priority: Medium Code(s): L03.114 - CELLULITIS OF LEFT UPPER LIMB SNOMED Code(s): 658667508 (3) Failure of outpatient treatment Current Visit: Yes Status: Acute Code(s): Z78.9 - OTHER SPECIFIED HEALTH STATUS SNOMED Code(s): 462232387
[2017-09-09] MEDS: HYDROcodone/APAP 5-325MG 1 EACH TAB PO PRN ×4 (02:43→21:18)
[2017-09-09] MEDS: MORPHINE SULFATE 4 MG/ML SYRINGE IVP PRN ×5 (04:57→23:47)
[2017-09-09] MEDS ORDERED: LACTATED RINGERS 1,000 ML IV ONE ×2 (07:08→09:43)
[2017-09-09] MEDS ORDERED: SUCCINYLCHOLINE CHLORIDE VIAL 200 MG/10 ML VIAL IV ONE (07:30)
[2017-09-09] MEDS ORDERED: PROPOFOL 10 MG/ML 20 ML VIAL IV ONE (07:30)
[2017-09-09] MEDS ORDERED: MIDAZOLAM 2 MG/2 ML VIAL ONE (07:30)
[2017-09-09] MEDS ORDERED: ONDANSETRON 4 MG/2 ML VIAL ONE (07:30)
[2017-09-09] MEDS ORDERED: DEXAMETHASONE SOD PHOS (MDV) 100 MG/10 ML VIAL ONE (07:30)
[2017-09-09] MEDS ORDERED: fentaNYL (PF) 50 MCG/ML 2 ML AMP ONE (07:30)
[2017-09-09] MEDS ORDERED: HYDROmorphone (PF) 1 MG/ML ONE (07:30)
[2017-09-09] MEDS ORDERED: LIDOCAINE 1% INJ 10MG/ML (20 ML MDV) ONE (07:30)
--- NOTE | 2017-09-09 08:27 | P.OP ---
Date of Procedure: 09/09/17 Procedure(s) Performed: PREOPERATIVE DIAGNOSES: 1. Left elbow septic olecranon bursitis, non-diabetic patient POSTOPERATIVE DIAGNOSES: 1. Left elbow septic olecranon bursitis, non-diabetic patient PROCEDURES PERFORMED: 1. Left elbow olecranon bursectomy 2. Left elbow septic olecranon bursitis wound irrigation and debridement ( sharp debridement with knife: skin, subcutaneous tissue, bursal tissue) ANESTHESIA: Gen. CLIENT SOLUTIONS MANAGER: None COMPLICATIONS: None ESTIMATED BLOOD LOSS: 20 mL. DISPOSITION: To post-anesthesia care unit INDICATIONS: Mr. Mayorga is a 42-year-old non-diabetic patient with a history of infection involving the left olecranon bursa. Although the situation was improving somewhat with current antibiotic treatment, he has had acute flare up of his symptoms with extension of cellulitis into the dorsal forearm and proximally up the arm into the triceps area, and I have recommended operative intervention for the draining elbow wound which has an obvious case of septic olecranon bursitis. Dr. Long and I agree that operative intervention is likely necessary in this case for optimal treatment. For these reasons and after full and detailed explanation of the risks and potential complications, the patient wishes to proceed with operative intervention. I have described the risks and potential complications as being inclusive of, but not limited to : Bleeding, infection, scarring, discomfort, blood vessel and/or nerve damage, persistent infection, osteomyelitis, involvement of the tendon of the triceps, stiffness, persistent swelling, weakness, sepsis, chronic wound, loss of limb and/or life, blood clot, pulmonary embolism, and other risks. The patient is aware these risks and wishes to proceed with surgery. Consent form has been signed. PROCEDURE: After appropriate consent was obtained, the patient was taken to the operating room placed in the supine position. Anesthesia was initiated, and after confirmation of adequate anesthesia, the patient was carefully positioned. Care was taken to make sure that all pressure points were adequately padded. Prepping and draping were completed in the usual aseptic fashion using a combination of Hibiclens prep and ChloraPrep. Timeout was called, confirming patient identity, side, procedure, and administration of antibiotics. Antibiotic treatment had been initiated on the floor and therefore no further antibiotics were given. An incision was created directly over the olecranon bursa and through the chronic draining wound on the tip of the olecranon. Incision was carried through skin and into subcu tissues and down to bursa. Bursal tissue was grossly infected and therefore using sharp dissection with an Allis clamp, rat- tooth pickups, and dissecting scissors and knife, this infected tissue was removed entirely. The abscess cavity did extend for approximately 2 inches in the direction of the triceps above the tip of the olecranon. Preliminary irrigation was performed using pulsatile saline. Final debridement was then performed , using a knife. There was no apparent involvement of the triceps tendon or olecranon bone. Wound was loosely closed over a Declo drain using interrupted 4-0 nylon sutures. Sterile dressing was applied followed by minimally compressive Jam wrap and sling. Patient tolerated the procedure well and was transferred to recovery room in stable condition. Sponge and needle counts were correct area
[2017-09-09] MEDS ORDERED: diphenhydrAMINE 50 MG/ML 1 ML VIAL IVP ONE (08:41)
[2017-09-09] MEDS ORDERED: HYDROmorphone 0.5 MG/0.5 ML SYRINGE IVP ONE (09:38)
[2017-09-09] MEDS: ceFAZolin IN SWFI 2 GM/20 ML SYRINGE IVP SCH ×3 (10:04→23:03)
[2017-09-09] MEDS: NAPROXEN 250 MG TAB PO SCH ×2 (10:04→21:09)
[2017-09-09] MEDS: CHOLECALCIFEROL 1,000 UNIT TAB PO SCH (10:05)
[2017-09-09] MEDS: ENOXAPARIN 40 MG/0.4 ML SYRINGE SQ SCH (10:05)
[2017-09-09] MEDS: MULTIVITAMINS, THERA 1 EACH TAB PO SCH (10:05)
[2017-09-09] MEDS: VENLAFAXINE HCL ER 75 MG CAP PO SCH (10:06)
[2017-09-09 14:22] VITALS: BMI 34.7
--- NOTE | 2017-09-09 17:18 | P.PN ---
Subjective Progress Note Date: 09/08/17 Progress note being dictated for Dr. Vanessa. Interval history: This a 42-year-old gentleman admitted with left apical cellulitis, status post aspiration with MSSA and multiple other medical issues. Maintained on daptomycin as per infectious disease. Today complaining of significant increase in pain/tenderness of the affected site with increased firmness, edema, redness. Abdominal CT suboptimal reporting large olecranon fluid collection, possible bursitis, infected bursitis, multifocal abscess. Afebrile. Objective - Vital Signs Vital signs: Vital Signs Temp 97.0 F L 09/08/17 15:00 Pulse 96 09/08/17 15:00 Resp 18 09/08/17 15:00 BP 118/77 09/08/17 15:00 Pulse Ox 92 L 09/08/17 15:00 Intake & Output 09/08/17 09/08/17 09/09/17 06:59 18:59 06:59 Intake Total 1150 1080 Balance 1150 1080 Intake: Oral 1150 1080 Other: # Voids 2 2 - Exam PHYSICAL EXAM: VITAL SIGNS: As above GENERAL: Sitting up at side of bed, no acute distress HEENT: Conjunctivae normal. eyes normal. Oral mucosa somewhat NECK: No JVD. No thyroid enlargement. No LNs CARDIOVASCULAR: S1, S2 muffled. No murmur RESPIRATION: Breath sounds diminished in the bases. No rhonchi or crackles. No bronchial breathing. ABDOMEN: Soft, nontender . No guarding. no masses palpable. Bowel sounds heard. LEGS: No edema. no swelling PSYCHIATRY: Alert and oriented -3, mood and affect normal. NERVOUS SYSTEM: Cranial N 2-12 grossly normal. Moves all 4 limbs. Diffuse weakness No focal deficits. Skin: Left elbow cellulitis worsening with increased tenderness,erythema, redness, warmth- edema extending up the dorsal forearm, triceps. Full range of motion with discomfort. Lymphatic system. No LN neck axilla or groin. Microbiology 09/04/17 15:50 Elbow - Left Anaerobic Culture - Final 09/02/17 21:44 Blood Blood Culture - Final No Growth after 144 hours 09/04/17 15:50 Elbow - Left Gram Stain - Final 09/04/17 15:50 Elbow - Left Wound Culture - Final Staphylococcus aureus - Labs CBC & Chem 7: 09/06/17 07:52 09/08/17 07:58 Labs: Abnormal Lab Results - Last 24 Hours (Table) 09/08/17 Range/Units 07:58 Potassium 5.2 H (3.5-5.1) mmol/L BUN 21 H (9-20) mg/dL Microbiology - Last 24 Hours (Table) 09/02/17 21:44 Blood Culture - Preliminary Blood No Growth after 120 hours Assessment and Plan Assessment: 1. Left elbow cellulitis, acute bursitis with MSSA, status post I&D 2. History of MRSA previously 3. History of anxiety Plan: Continue on current medication regime ,monitoring and symptomatic treatment. Antibiotics as per infectious disease. I&D pending as per orthopedics. Follow cultures closely. Further recommendations to follow. The impression and plan of care has been dictated as directed. : I performed a history and examination of this patient, discussed the same with the dictator. I agree with the dictator's note ,documented as a scribe. Any additional findings or plans will be noted.
[2017-09-09] MEDS: LORazepam 2 MG/ML INJ IV PRN ×2 (17:26→23:08)
--- NOTE | 2017-09-09 17:26 | P.PN ---
Subjective Progress Note Date: 09/09/17 Progress note being dictated for Dr. Vanessa. Interval history: This a 42-year-old gentleman admitted with left apical cellulitis, status post aspiration with MSSA and multiple other medical issues. Maintained on daptomycin as per infectious disease. Today complaining of significant increase in pain/tenderness of the affected site with increased firmness, edema, redness. Abdominal CT suboptimal reporting large olecranon fluid collection, possible bursitis, infected bursitis, multifocal abscess. Afebrile. 09/09/17 underwent left elbow septic olecranon bursectomy with wound irrigation and debridement. Tolerated procedure well. Pain controlled. Afebrile. Denies chest pain, palpitations or increasing shortness of breath. Objective - Vital Signs Vital signs: Vital Signs Temp 97.7 F 09/09/17 15:00 Pulse 98 09/09/17 15:00 Resp 18 09/09/17 15:00 BP 158/75 09/09/17 15:00 Pulse Ox 93 L 09/09/17 15:00 Intake & Output 09/08/17 09/09/17 09/09/17 18:59 06:59 18:59 Intake Total 3768 030 7802 Output Total 50 Balance 1131 931 3368 Weight 106.594 kg Intake: IV 1000 Oral 1080 450 240 Output: Estimated Blood Loss 50 Other: Voiding Method Toilet # Voids 2 2 2 - Exam PHYSICAL EXAM: VITAL SIGNS: As above GENERAL: Sitting up in of bed, no acute distress HEENT: Conjunctivae normal. eyes normal. Oral mucosa somewhat NECK: No JVD. No thyroid enlargement. No LNs CARDIOVASCULAR: S1, S2 muffled. No murmur RESPIRATION: Breath sounds diminished in the bases. No rhonchi or crackles. No bronchial breathing. ABDOMEN: Soft, nontender . No guarding. no masses palpable. Bowel sounds heard. LEGS: No edema. no swelling PSYCHIATRY: Alert and oriented -3, mood and affect normal. NERVOUS SYSTEM: Cranial N 2-12 grossly normal. Moves all 4 limbs. Diffuse weakness No focal deficits. Skin: Left arm/elbow dressing clean dry and intact. Lymphatic system. No LN neck axilla or groin. Microbiology 09/04/17 15:50 Elbow - Left Anaerobic Culture - Final 09/02/17 21:44 Blood Blood Culture - Final No Growth after 144 hours 09/04/17 15:50 Elbow - Left Gram Stain - Final 09/04/17 15:50 Elbow - Left Wound Culture - Final Staphylococcus aureus - Labs CBC & Chem 7: 09/06/17 07:52 09/08/17 07:58 Labs: Microbiology - Last 24 Hours (Table) 09/04/17 15:50 Anaerobic Culture - Final Elbow - Left 09/02/17 21:44 Blood Culture - Final Blood No Growth after 144 hours Assessment and Plan Assessment: 1. Left elbow cellulitis, acute left elbow septic olecranon bursitis, status post bursectomy with I&D. Initial aspiration with MSSA. 2. History of MRSA previously 3. History of anxiety Plan: Continue on current medication regime ,monitoring and symptomatic treatment. Antibiotics as per infectious disease. Further recommendations to follow. Discharge planning in progress for tomorrow, pending clearance from ID and orthopedics. The impression and plan of care has been dictated as directed. : I performed a history and examination of this patient, discussed the same with the dictator. I agree with the dictator's note ,documented as a scribe. Any additional findings or plans will be noted.
[2017-09-09] MEDS: ATORVASTATIN 40 MG TAB PO SCH (21:09)
--- NOTE | 2017-09-09 21:51 | P.PN ---
Subjective Progress Note Date: 09/09/17 Principal diagnosis: Pain and swelling left elbow Pleasant 42-year-old male known to the infectious disease service from his prior MRSA abscess of his right thigh. 2 years ago he had the sudden onset of the abscess to his right thigh required surgical incision and drainage and anterior the wound healing Center. Eventually improved is a relatively well until a few weeks ago. Sudden onset of swelling and discomfort to his left elbow occurred. This event occurred just 2 days before he was to go on a cruise, he was seen and a steroid injection was placed into the elbow area. He felt well enough for the trip and did well. Upon returning home to seek further care. The elbow did swell a bit and he again had a steroid injection. However since then it has markedly worsened with extensive swelling and discomfort to the lateral aspect of the elbow. He's had some fever without much chill. The elbow and arm itself is swollen quite a bit in the tenderness again markedly increased. Because of the markedly worsening status he was brought to the hospital and infectious disease consultation was requested. He cannot relate any specific trauma but he does work in a factory setting, but can 't recall any specific activity fall or trauma at the start of the swelling. He has not had any prior difficulties with the left elbow in the past. 09/04/2017 patient continues to have some pain and swelling to the left elbow area. Does have some pain in range of motion of the elbow much more discomfort and swelling is noted at the forearm and proximal to the elbow posterior. Fever is improved 09/05/2017 patient has had improvement since the aspiration. The swelling over the elbow and forearm have improved but continues to have pain and swelling in the arm posterior lateral to the elbow. His fever has improved 09/08/2017 the patient relates he was doing somewhat better now over the last 24 hours is again had a marked worsening of the infection to the left elbow area. There is increased swelling to the arm elbow and forearm. His pain is increased. Low-grade fevers are noted he is discontent that he has had significant worsening. 09/09/2017 patient is now status post incision and drainage of the extensive infection to the left olecranon bursa and arm. Large abscess cavity was encountered and is now been drained. He is feeling better since surgery but of course is having significant discomfort. He is denying further fevers chills or rigors. Objective - Vital Signs Vital signs: Vital Signs Temp 97.7 F 09/09/17 15:00 Pulse 98 09/09/17 15:00 Resp 18 09/09/17 15:00 BP 158/75 09/09/17 15:00 Pulse Ox 93 L 09/09/17 15:00 Intake & Output 09/09/17 09/09/17 09/10/17 06:59 18:59 06:59 Intake Total 450 1240 Output Total 50 Balance 450 1190 Weight 106.594 kg Intake: IV 1000 Oral 450 240 Output: Estimated Blood Loss 50 Other: Voiding Method Toilet # Voids 2 2 2 - Exam Pleasant 42-year-old male with a muscular build but is overweight. HEENT: Anicteric conjunctiva are pink and moist nasal mucosa grossly intact without significant lesions, there is no thrush. Neck: The neck is supple without significant lymphadenopathy or thyromegaly. Lungs: Good bilateral air entry without significant crackles or wheezing. There is no significant bronchial sounds. There is no egophony or dullness. Heart: Regular rate and rhythm with an audible S1-S2, no S3 no S4. There is no significant murmur click or rub, PMI was nondisplaced. Abdomen: Positive bowel sounds soft and nontender without palpable masses or organomegaly. There was no guarding or rebound. Extremities: The right upper extremity is without any abnormality no significant petechiae or telangiectasia. The left arm is evidence of the extensive swelling around the elbow. There is evidence of some discomfort from range of motion of the elbow but there is no distinct tenderness over the joint itself . The prior improvement is now worsened considerably. He is now status post surgery in the dressing is not removed. The significant erythema that was tracking axilla is improved No splinter hemorrhages were noted. The lower extremities are free from significant edema. The peripheral pulses were 2+ and symmetric. Neuro: Awake alert oriented to person place and time. There are no acute new gross focal sensory motor deficits. - Labs CBC & Chem 7: 09/06/17 07:52 09/08/17 07:58 Labs: Microbiology - Last 24 Hours (Table) 09/04/17 15:50 Anaerobic Culture - Final Elbow - Left 09/02/17 21:44 Blood Culture - Final Blood No Growth after 144 hours Laboratory Results WBC 9.1 k/uL (3.8-10.6) 09/06/17 07:52 RBC 4.90 m/uL (4.30-5.90) 09/06/17 07:52 Hgb 13.6 gm/dL (13.0-17.5) 09/06/17 07:52 Hct 44.0 % (39.0-53.0) 09/06/17 07:52 MCV 89.7 fL (80.0-100.0) 09/06/17 07:52 MCH 27.8 pg (25.0-35.0) 09/06/17 07:52 MCHC 31.0 g/dL (31.0-37.0) 09/06/17 07:52 RDW 16.8 % (11.5-15.5) H 09/06/17 07:52 Plt Count 232 k/uL (150-450) 09/06/17 07:52 Neutrophils % 74 % 09/06/17 07:52 Lymphocytes % 17 % 09/06/17 07:52 Monocytes % 6 % 09/06/17 07:52 Eosinophils % 2 % 09/06/17 07:52 Basophils % 0 % 09/06/17 07:52 Neutrophils # 6.8 k/uL (1.3-7.7) 09/06/17 07:52 Lymphocytes # 1.5 k/uL (1.0-4.8) 09/06/17 07:52 Monocytes # 0.5 k/uL (0-1.0) 09/06/17 07:52 Eosinophils # 0.2 k/uL (0-0.7) 09/06/17 07:52 Basophils # 0.0 k/uL (0-0.2) 09/06/17 07:52 Hypochromasia Slight 09/03/17 08:40 Anisocytosis Slight 09/06/17 07:52 ESR 19 mm/hr (0-15) H 09/06/17 07:52 PT 9.3 sec (9.0-12.0) 09/02/17 21:44 INR 0.9 (<1.2) 09/02/17 21:44 APTT 22.5 sec (22.0-30.0) 09/02/17 21:44 Sodium 139 mmol/L (137-145) 09/08/17 07:58 Potassium 5.2 mmol/L (3.5-5.1) H 09/08/17 07:58 Chloride 101 mmol/L (98-107) 09/08/17 07:58 Carbon Dioxide 27 mmol/L (22-30) 09/08/17 07:58 Anion Gap 11 mmol/L 09/08/17 07:58 BUN 21 mg/dL (9-20) H 09/08/17 07:58 Creatinine 0.85 mg/dL (0.66-1.25) 09/08/17 07:58 Est GFR (MDRD) Af Amer >60 (>60 ml/min/1.73 sqM) 09/08/17 07:58 Est GFR (MDRD) Non-Af >60 (>60 ml/min/1.73 sqM) 09/08/17 07:58 Glucose 92 mg/dL (74-99) 09/08/17 07:58 Plasma Lactic Acid Wesly 0.7 mmol/L (0.7-2.0) 09/02/17 21:44 Calcium 9.6 mg/dL (8.4-10.2) 09/08/17 07:58 Total Bilirubin 0.4 mg/dL (0.2-1.3) 09/03/17 08:40 AST 19 U/L (17-59) 09/03/17 08:40 ALT 33 U/L (21-72) 09/03/17 08:40 Alkaline Phosphatase 92 U/L (38-126) 09/03/17 08:40 C-Reactive Protein 17.7 mg/L (<10.0) H 09/04/17 08:02 Total Protein 6.5 g/dL (6.3-8.2) 09/03/17 08:40 Albumin 3.8 g/dL (3.5-5.0) 09/03/17 08:40 Synovial Source Left Elbow 09/04/17 15:50 Synovial Crystals See comment 09/04/17 15:50 Microbiology 09/04/17 15:50 Elbow - Left Anaerobic Culture - Final 09/02/17 21:44 Blood Blood Culture - Final No Growth after 144 hours 09/04/17 15:50 Elbow - Left Gram Stain - Final 09/04/17 15:50 Elbow - Left Wound Culture - Final Staphylococcus aureus Assessment and Plan (1) Olecranon bursitis of left elbow Narrative/Plan: 42-year-old male with history of prior second abscess onto his right thigh the records surgical incision and drainage and wound care now presents for significant pain and swelling to his left elbow. The patient has had 2 injections into that site with what appears to be a olecranon bursitis that is now become severely infected. Prior culture had evidence of MRSA with an CARLOZ to vancomycin of 2 in counseling antibiotic therapy was changed to daptomycin while cultures are process. Initially made nothing by mouth and will have further surgical evaluation in the morning and if there is not significant resolution within need surgical drainage of the infected bursa. Elevation and warm compresses are being utilized. Pain control with anti-inflammatory Toradol is of significant importance to help with the swelling and discomfort. He is up-to-date with his tetanus vaccine multivitamin with zinc is added basic laboratories are requested and will monitor. On 09/04/2017 the patient has had some mild improvement. The dense erythema subtly improved. Still has extensive swelling and discomfort. Fortunately pain control is improving. We have discussed the case with orthopedics and have asked for an aspiration the bursa for culture and crystal analysis which will be performed later today if possible. 09/05/2017 aspiration as occurred. Gram stain positive for gram-positive cocci in clusters highly likely that he will continue to have a staphylococcal infection as he's had in the past. Hopefully the aspiration will allow improvement of the bursal infection without an open drainage procedure. Given the prior history daptomycin is being utilized and monitored closely. The patient has a history of prior MRSA infection the past and has not been utilizing bleach baths much as of late. As he improves should get back to this regiment and should be at least once to twice per week. 09/08/2017 patient was having significant improvement but now has had a marked decline of his status. There is the significant increase in swelling to the left elbow area as well as to the arm and forearm with increased pain. Is also marked erythema to the forearm. With the significant changes a computed tomography scan to the site has been requested. The orthopedic PA has been consulted given the marked abnormality to the CAT scan the patient is in need of surgical incision and drainage to the site. Patient is made nothing by mouth for a.m. surgery. 09/09/2017 the patient was showing improvement status post surgical incision and drainage of the olecranon bursa infection local ascending infection. Recent culture is evidence some MSSA and he is tolerating current antibiotic therapy well. He is having no further fevers or chills. Pain is significant postoperative bleeding well controlled with current pain medications. Patient understands the importance of elevation of the limb to help pain Current Visit: Yes Status: Acute Code(s): M70.22 - OLECRANON BURSITIS, LEFT ELBOW SNOMED Code(s): 926616843 (2) Cellulitis of left arm Current Visit: Yes Status: Acute Priority: Medium Code(s): L03.114 - CELLULITIS OF LEFT UPPER LIMB SNOMED Code(s): 678140873 (3) Failure of outpatient treatment Current Visit: Yes Status: Acute Code(s): Z78.9 - OTHER SPECIFIED HEALTH STATUS SNOMED Code(s): 440623331
[2017-09-10] MEDS: MORPHINE SULFATE 4 MG/ML SYRINGE IVP PRN ×3 (05:36→14:04)
[2017-09-10] MEDS: HYDROcodone/APAP 5-325MG 1 EACH TAB PO PRN ×4 (07:23→20:13)
--- NOTE | 2017-09-10 08:12 | P.PN ---
Subjective Progress Note Date: 09/10/17 Principal diagnosis: Infected Olecranon bursitis left elbow. Cellulitis left upper extremity. This is a 42-year-old male admitted with olecranon bursitis and cellulitis to the left arm. Aspiration was performed last week with cultures showing MSSA. The patient was improving with local care and IV antibiotics. However, he developed significant worsening of his symptoms on 09/08/2017 and was taken to surgery on 09/09/2017 for incision and drainage of the left elbow. The patient states that he is having pain today which is fairly well controlled. He states that the arm is feeling better, overall. He feels like the swelling is down. No new labs today. Objective - Vital Signs Vital signs: Vital Signs Temp 98.3 F 09/10/17 06:27 Pulse 73 09/10/17 06:27 Resp 16 09/10/17 06:27 BP 138/81 09/10/17 06:27 Pulse Ox 95 09/10/17 06:27 Intake & Output 09/09/17 09/10/17 09/10/17 18:59 06:59 18:59 Intake Total 1240 Output Total 50 Balance 1190 Weight 106.594 kg Intake: IV 1000 Oral 240 Output: Estimated Blood Loss 50 Other: Voiding Method Toilet # Voids 2 1 - Exam This is a pleasant 42-year-old male in no acute distress. He is alert and oriented 3. Exam of the left upper extremity reveals that his erythema to the elbow and forearm has improved. Swelling is improved. There is minimal erythema, if any. There is moderate drainage on the dressing. There is no active drainage from the incision at this time. Sulaiman drain remains in place. Range of motion of the elbow was not examined today. He has full wrist and finger motion without difficulty or pain. Neurovascular status to the left upper extremity is intact. - Labs CBC & Chem 7: 09/06/17 07:52 09/08/17 07:58 Assessment and Plan (1) Olecranon bursitis of left elbow Current Visit: Yes Status: Acute Code(s): M70.22 - OLECRANON BURSITIS, LEFT ELBOW SNOMED Code(s): 097589543 (2) Cellulitis Current Visit: Yes Status: Acute Code(s): L03.90 - CELLULITIS, UNSPECIFIED SNOMED Code(s): 338020874 (3) Status post incision and drainage Current Visit: Yes Status: Acute Code(s): Z98.890 - OTHER SPECIFIED POSTPROCEDURAL STATES SNOMED Code(s): 263341382 (4) MSSA (methicillin susceptible Staphylococcus aureus) infection Current Visit: Yes Status: Acute Code(s): A49.01 - METHICILLIN SUSCEP STAPH INFECTION, UNSP SITE SNOMED Code(s): 869754014 Plan: The clinical findings are discussed with the patient and his nurse. The Sulaiman drain is left in place. Dressing is changed. He is to continue to elevate the elbow. We will most likely remove the Flippin drain tomorrow. He is to continue on IV antibiotics per Dr. Long. He may possibly be brace discharge from an orthopedic standpoint tomorrow. We will await home antibiotic recommendations from Dr. Long.
[2017-09-10] MEDS: NAPROXEN 250 MG TAB PO SCH ×2 (09:08→20:13)
[2017-09-10] MEDS: CHOLECALCIFEROL 1,000 UNIT TAB PO SCH (09:09)
[2017-09-10] MEDS: ENOXAPARIN 40 MG/0.4 ML SYRINGE SQ SCH (09:09)
[2017-09-10] MEDS: ceFAZolin IN SWFI 2 GM/20 ML SYRINGE IVP SCH ×3 (09:09→23:41)
[2017-09-10] MEDS: VENLAFAXINE HCL ER 75 MG CAP PO SCH (09:10)
[2017-09-10] MEDS: MULTIVITAMINS, THERA 1 EACH TAB PO SCH (09:11)
[2017-09-10 10:33] LABS: Basophils % (A) 0 %; Eosinophils # (A) 0.1 k/uL (0-0.7); Eosinophils % (A) 1 %; HCT 38.2 % (39.0-53.0); HGB 12.4 gm/dL (13.0-17.5); Lymphocytes # (A) 1.5 k/uL (1.0-4.8); Lymphocytes % (A) 14 %; MCH 28.3 pg (25.0-35.0); MCHC 32.6 g/dL (31.0-37.0); Mean Platelet Volume 7.5; Monocytes # (A) 0.5 k/uL (0-1.0); Monocytes % (A) 4 %; Neutrophils # (A) 8.7 k/uL (1.3-7.7); Neutrophils % (A) 80 %; Platelet Count 237 k/uL (150-450); RBC 4.39 m/uL (4.30-5.90); RDW 15.9 % (11.5-15.5); WBC 10.9 k/uL (3.8-10.6)
[2017-09-10 11:00] LABS: Anion Gap 11 mmol/L; Blood Urea Nitrogen 16 mg/dL (9-20); Calcium 9.1 mg/dL (8.4-10.2); Carbon Dioxide 26 mmol/L (22-30); Chloride 103 mmol/L (98-107); Glucose 95 mg/dL (74-99); Potassium 4.3 mmol/L (3.5-5.1); Sodium 140 mmol/L (137-145)
[2017-09-10] MEDS: MORPHINE ORAL SOLN 10 MG/5 ML CUP PO PRN ×2 (18:34→22:34)
[2017-09-10] MEDS ORDERED: LORazepam 1 MG TAB PO PRN (20:03)
[2017-09-10] MEDS: ATORVASTATIN 40 MG TAB PO SCH (20:14)
--- NOTE | 2017-09-10 22:31 | P.PN ---
Subjective Progress Note Date: 09/10/17 Principal diagnosis: Pain and swelling left elbow Pleasant 42-year-old male known to the infectious disease service from his prior MRSA abscess of his right thigh. 2 years ago he had the sudden onset of the abscess to his right thigh required surgical incision and drainage and anterior the wound healing Center. Eventually improved is a relatively well until a few weeks ago. Sudden onset of swelling and discomfort to his left elbow occurred. This event occurred just 2 days before he was to go on a cruise, he was seen and a steroid injection was placed into the elbow area. He felt well enough for the trip and did well. Upon returning home to seek further care. The elbow did swell a bit and he again had a steroid injection. However since then it has markedly worsened with extensive swelling and discomfort to the lateral aspect of the elbow. He's had some fever without much chill. The elbow and arm itself is swollen quite a bit in the tenderness again markedly increased. Because of the markedly worsening status he was brought to the hospital and infectious disease consultation was requested. He cannot relate any specific trauma but he does work in a factory setting, but can 't recall any specific activity fall or trauma at the start of the swelling. He has not had any prior difficulties with the left elbow in the past. 09/04/2017 patient continues to have some pain and swelling to the left elbow area. Does have some pain in range of motion of the elbow much more discomfort and swelling is noted at the forearm and proximal to the elbow posterior. Fever is improved 09/05/2017 patient has had improvement since the aspiration. The swelling over the elbow and forearm have improved but continues to have pain and swelling in the arm posterior lateral to the elbow. His fever has improved 09/08/2017 the patient relates he was doing somewhat better now over the last 24 hours is again had a marked worsening of the infection to the left elbow area. There is increased swelling to the arm elbow and forearm. His pain is increased. Low-grade fevers are noted he is discontent that he has had significant worsening. 09/09/2017 patient is now status post incision and drainage of the extensive infection to the left olecranon bursa and arm. Large abscess cavity was encountered and is now been drained. He is feeling better since surgery but of course is having significant discomfort. He is denying further fevers chills or rigors. 09/10/2017 patient is still having some discomfort to the left elbow status post surgery but feels better than preoperative. Drainage on the dressing is improved. Sulaiman drain remains in place. Has no other new acute complaints. Objective - Vital Signs Vital signs: Vital Signs Temp 97.1 F L 09/10/17 14:54 Pulse 73 09/10/17 14:54 Resp 16 09/10/17 14:54 BP 156/91 09/10/17 14:54 Pulse Ox 94 L 09/10/17 14:54 Intake & Output 09/10/17 09/10/17 09/11/17 06:59 18:59 06:59 Other: Voiding Method Toilet # Voids 1 3 - Exam Pleasant 42-year-old male with a muscular build but is overweight. HEENT: Anicteric conjunctiva are pink and moist nasal mucosa grossly intact without significant lesions, there is no thrush. Neck: The neck is supple without significant lymphadenopathy or thyromegaly. Lungs: Good bilateral air entry without significant crackles or wheezing. There is no significant bronchial sounds. There is no egophony or dullness. Heart: Regular rate and rhythm with an audible S1-S2, no S3 no S4. There is no significant murmur click or rub, PMI was nondisplaced. Abdomen: Positive bowel sounds soft and nontender without palpable masses or organomegaly. There was no guarding or rebound. Extremities: The right upper extremity is without any abnormality no significant petechiae or telangiectasia. The left arm is evidence of the extensive swelling around the elbow. There is evidence of some discomfort from range of motion of the elbow but there is no distinct tenderness over the joint itself . The prior improvement is now worsened considerably. The current dressing has some drainage Sulaiman drain is in place The significant erythema that was tracking axilla is resolved No splinter hemorrhages were noted. The lower extremities are free from significant edema. The peripheral pulses were 2+ and symmetric. Neuro: Awake alert oriented to person place and time. There are no acute new gross focal sensory motor deficits. - Labs CBC & Chem 7: 09/10/17 09:53 09/10/17 09:53 Labs: Abnormal Lab Results - Last 24 Hours (Table) 09/10/17 Range/Units 09:53 WBC 10.9 H (3.8-10.6) k/uL Hgb 12.4 L (13.0-17.5) gm/dL Hct 38.2 L (39.0-53.0) % RDW 15.9 H (11.5-15.5) % Neutrophils # 8.7 H (1.3-7.7) k/uL Laboratory Results WBC 10.9 k/uL (3.8-10.6) H 09/10/17 09:53 RBC 4.39 m/uL (4.30-5.90) 09/10/17 09:53 Hgb 12.4 gm/dL (13.0-17.5) L 09/10/17 09:53 Hct 38.2 % (39.0-53.0) L 09/10/17 09:53 MCV 87.0 fL (80.0-100.0) 09/10/17 09:53 MCH 28.3 pg (25.0-35.0) 09/10/17 09:53 MCHC 32.6 g/dL (31.0-37.0) 09/10/17 09:53 RDW 15.9 % (11.5-15.5) H 09/10/17 09:53 Plt Count 237 k/uL (150-450) 09/10/17 09:53 Neutrophils % 80 % 09/10/17 09:53 Lymphocytes % 14 % 09/10/17 09:53 Monocytes % 4 % 09/10/17 09:53 Eosinophils % 1 % 09/10/17 09:53 Basophils % 0 % 09/10/17 09:53 Neutrophils # 8.7 k/uL (1.3-7.7) H 09/10/17 09:53 Lymphocytes # 1.5 k/uL (1.0-4.8) 09/10/17 09:53 Monocytes # 0.5 k/uL (0-1.0) 09/10/17 09:53 Eosinophils # 0.1 k/uL (0-0.7) 09/10/17 09:53 Basophils # 0.0 k/uL (0-0.2) 09/10/17 09:53 Hypochromasia Slight 09/03/17 08:40 Anisocytosis Slight 09/06/17 07:52 ESR 19 mm/hr (0-15) H 09/06/17 07:52 PT 9.3 sec (9.0-12.0) 09/02/17 21:44 INR 0.9 (<1.2) 09/02/17 21:44 APTT 22.5 sec (22.0-30.0) 09/02/17 21:44 Sodium 140 mmol/L (137-145) 09/10/17 09:53 Potassium 4.3 mmol/L (3.5-5.1) 09/10/17 09:53 Chloride 103 mmol/L (98-107) 09/10/17 09:53 Carbon Dioxide 26 mmol/L (22-30) 09/10/17 09:53 Anion Gap 11 mmol/L 09/10/17 09:53 BUN 16 mg/dL (9-20) 09/10/17 09:53 Creatinine 0.80 mg/dL (0.66-1.25) 09/10/17 09:53 Est GFR (MDRD) Af Amer >60 (>60 ml/min/1.73 sqM) 09/10/17 09:53 Est GFR (MDRD) Non-Af >60 (>60 ml/min/1.73 sqM) 09/10/17 09:53 Glucose 95 mg/dL (74-99) 09/10/17 09:53 Plasma Lactic Acid Wesly 0.7 mmol/L (0.7-2.0) 09/02/17 21:44 Calcium 9.1 mg/dL (8.4-10.2) 09/10/17 09:53 Total Bilirubin 0.4 mg/dL (0.2-1.3) 09/03/17 08:40 AST 19 U/L (17-59) 09/03/17 08:40 ALT 33 U/L (21-72) 09/03/17 08:40 Alkaline Phosphatase 92 U/L (38-126) 09/03/17 08:40 C-Reactive Protein 17.7 mg/L (<10.0) H 09/04/17 08:02 Total Protein 6.5 g/dL (6.3-8.2) 09/03/17 08:40 Albumin 3.8 g/dL (3.5-5.0) 09/03/17 08:40 Synovial Source Left Elbow 09/04/17 15:50 Synovial Crystals See comment 09/04/17 15:50 Microbiology 09/04/17 15:50 Elbow - Left Anaerobic Culture - Final 09/02/17 21:44 Blood Blood Culture - Final No Growth after 144 hours 09/04/17 15:50 Elbow - Left Gram Stain - Final 09/04/17 15:50 Elbow - Left Wound Culture - Final Staphylococcus aureus Assessment and Plan (1) Olecranon bursitis of left elbow Narrative/Plan: 42-year-old male with history of prior second abscess onto his right thigh the records surgical incision and drainage and wound care now presents for significant pain and swelling to his left elbow. The patient has had 2 injections into that site with what appears to be a olecranon bursitis that is now become severely infected. Prior culture had evidence of MRSA with an CARLOZ to vancomycin of 2 in counseling antibiotic therapy was changed to daptomycin while cultures are process. Initially made nothing by mouth and will have further surgical evaluation in the morning and if there is not significant resolution within need surgical drainage of the infected bursa. Elevation and warm compresses are being utilized. Pain control with anti-inflammatory Toradol is of significant importance to help with the swelling and discomfort. He is up-to-date with his tetanus vaccine multivitamin with zinc is added basic laboratories are requested and will monitor. On 09/04/2017 the patient has had some mild improvement. The dense erythema subtly improved. Still has extensive swelling and discomfort. Fortunately pain control is improving. We have discussed the case with orthopedics and have asked for an aspiration the bursa for culture and crystal analysis which will be performed later today if possible. 09/05/2017 aspiration as occurred. Gram stain positive for gram-positive cocci in clusters highly likely that he will continue to have a staphylococcal infection as he's had in the past. Hopefully the aspiration will allow improvement of the bursal infection without an open drainage procedure. Given the prior history daptomycin is being utilized and monitored closely. The patient has a history of prior MRSA infection the past and has not been utilizing bleach baths much as of late. As he improves should get back to this regiment and should be at least once to twice per week. 09/08/2017 patient was having significant improvement but now has had a marked decline of his status. There is the significant increase in swelling to the left elbow area as well as to the arm and forearm with increased pain. Is also marked erythema to the forearm. With the significant changes a computed tomography scan to the site has been requested. The orthopedic PA has been consulted given the marked abnormality to the CAT scan the patient is in need of surgical incision and drainage to the site. Patient is made nothing by mouth for a.m. surgery. 09/09/2017 the patient was showing improvement status post surgical incision and drainage of the olecranon bursa infection local ascending infection. Recent culture is evidence some MSSA and he is tolerating current antibiotic therapy well. He is having no further fevers or chills. Pain is significant postoperative bleeding well controlled with current pain medications. Patient understands the importance of elevation of the limb to help pain 09/10/2017 patient is now showing further improvement status post the surgery. If this time awaiting for PICC line to be placed so he may be discharged home to complete his outpatient intravenous antibiotic therapy in the outpatient clinic. 21 days as planned at this point time for the complex infection of this infected olecranon bursa with MSSA. Patient will be seen by orthopedics tomorrow likely will have the Sulaiman drain removed and then ready for discharge to home Current Visit: Yes Status: Acute Code(s): M70.22 - OLECRANON BURSITIS, LEFT ELBOW SNOMED Code(s): 410697901 (2) Cellulitis of left arm Current Visit: Yes Status: Acute Priority: Medium Code(s): L03.114 - CELLULITIS OF LEFT UPPER LIMB SNOMED Code(s): 231023661 (3) Failure of outpatient treatment Current Visit: Yes Status: Acute Code(s): Z78.9 - OTHER SPECIFIED HEALTH STATUS SNOMED Code(s): 759060892
[2017-09-11] MEDS: HYDROcodone/APAP 5-325MG 1 EACH TAB PO PRN ×3 (01:55→12:47)
[2017-09-11] MEDS: MORPHINE ORAL SOLN 10 MG/5 ML CUP PO PRN ×2 (06:11→10:21)
[2017-09-11 07:45] VITALS: BP 122/81; PULSE 69; TEMP 97.1
[2017-09-11] MEDS: NAPROXEN 250 MG TAB PO SCH (07:53)
[2017-09-11] MEDS: CHOLECALCIFEROL 1,000 UNIT TAB PO SCH (07:53)
[2017-09-11] MEDS: ceFAZolin IN SWFI 2 GM/20 ML SYRINGE IVP SCH (07:54)
[2017-09-11] MEDS: VENLAFAXINE HCL ER 75 MG CAP PO SCH (07:54)
[2017-09-11 08:28] LABS: Anisocytosis Slight; Basophils % (A) 1 %; Eosinophils # (A) 0.1 k/uL (0-0.7); Eosinophils % (A) 2 %; HCT 40.2 % (39.0-53.0); HGB 12.1 gm/dL (13.0-17.5); Hypochromasia Slight; Lymphocytes # (A) 1.8 k/uL (1.0-4.8); Lymphocytes % (A) 23 %; MCH 27.4 pg (25.0-35.0); MCHC 30.1 g/dL (31.0-37.0); MCV 90.9 fL (80.0-100.0); Mean Platelet Volume 7.4; Monocytes # (A) 0.5 k/uL (0-1.0); Monocytes % (A) 6 %; Neutrophils # (A) 5.3 k/uL (1.3-7.7); Neutrophils % (A) 68 %; Platelet Count 217 k/uL (150-450); RBC 4.42 m/uL (4.30-5.90); RDW 16.5 % (11.5-15.5); WBC 7.8 k/uL (3.8-10.6)
[2017-09-11 08:52] LABS: Anion Gap 11 mmol/L; Blood Urea Nitrogen 20 mg/dL (9-20); Calcium 9.1 mg/dL (8.4-10.2); Carbon Dioxide 23 mmol/L (22-30); Chloride 105 mmol/L (98-107); Glucose 78 mg/dL (74-99); Potassium 4.8 mmol/L (3.5-5.1); Sodium 139 mmol/L (137-145)
[2017-09-11 10:53] VITALS: RESP 16
[2017-09-11] MEDS ORDERED: LIDOCAINE 2% INJ 20 MG/ML (20 ML MDV) ONE (10:57)
--- NOTE | 2017-09-11 11:01 | P.PN ---
Subjective Progress Note Date: 09/11/17 Principal diagnosis: Infected Olecranon bursitis left elbow. Cellulitis left upper extremity. This is a 42-year-old male admitted with olecranon bursitis and cellulitis to the left arm. Aspiration was performed last week with cultures showing MSSA. The patient was improving with local care and IV antibiotics. However, he developed significant worsening of his symptoms on 09/08/2017 and was taken to surgery on 09/09/2017 for incision and drainage of the left elbow. The patient states that he is having pain today which is fairly well controlled. He states that the arm is feeling better, overall. He feels like the swelling is down. Objective - Vital Signs Vital signs: Vital Signs Temp 97.1 F L 09/11/17 07:00 Pulse 69 09/11/17 07:00 Resp 16 09/11/17 08:00 BP 122/81 09/11/17 07:00 Pulse Ox 95 09/11/17 07:00 Intake & Output 09/10/17 09/11/17 09/11/17 18:59 06:59 18:59 Other: Voiding Method Toilet # Voids 3 2 - Exam This is a pleasant 42-year-old male in no acute distress. He is alert and oriented 3. Exam of the left upper extremity reveals that his erythema to the elbow and forearm has improved. Swelling is improved. There is minimal erythema, if any. There is minimal drainage on the dressing. There is no active drainage from the incision at this time. [place] drain is removed today. Range of motion of the elbow was not examined today. He has full wrist and finger motion without difficulty or pain. Neurovascular status to the left upper extremity is intact. - Labs CBC & Chem 7: 09/11/17 07:41 09/11/17 07:41 Labs: Abnormal Lab Results - Last 24 Hours (Table) 09/11/17 Range/Units 07:41 Hgb 12.1 L (13.0-17.5) gm/dL MCHC 30.1 L (31.0-37.0) g/dL RDW 16.5 H (11.5-15.5) % Assessment and Plan (1) Olecranon bursitis of left elbow Current Visit: Yes Status: Acute Code(s): M70.22 - OLECRANON BURSITIS, LEFT ELBOW SNOMED Code(s): 381038944 (2) Cellulitis Current Visit: Yes Status: Acute Code(s): L03.90 - CELLULITIS, UNSPECIFIED SNOMED Code(s): 100503129 (3) Status post incision and drainage Current Visit: Yes Status: Acute Code(s): Z98.890 - OTHER SPECIFIED POSTPROCEDURAL STATES SNOMED Code(s): 942245971 (4) MSSA (methicillin susceptible Staphylococcus aureus) infection Current Visit: Yes Status: Acute Code(s): A49.01 - METHICILLIN SUSCEP STAPH INFECTION, UNSP SITE SNOMED Code(s): 225498192 Plan: The clinical findings are discussed with the patient and his nurse. The Sulaiman drain is removed today Dressing is changed. He is to continue to elevate the elbow. He may be discharged to home today after PICC line if cleared medically. He is to follow-up in our office in 1 week. He is to keep a clean dry dressing on the elbow.
[2017-09-11] MEDS ORDERED: LIDOCAINE 2% INJ 20 MG/ML SQ ONE (11:08)
[2017-09-11] MEDS: MULTIVITAMINS, THERA 1 EACH TAB PO SCH (12:48)
--- NOTE | 2017-09-11 14:39 | IR ---
EXAMINATION TYPE: IR cvc insert >=5 years DATE OF EXAM: 09/11/2017 COMPARISON: NONE CLINICAL HISTORY: Infection Needs long-term intravenous access for antibiotics. PROCEDURE: After informed consent, the skin overlying the upper extremity vein was localized with ultrasound and noted to be compressible and patent. An ultrasound image was obtained and submitted on the patient' s chart. The overlying skin was prepped and draped and Lidocaine was used for local anesthesia. A s kin truman was made with a scalpel. Access was gained to the vein under ultrasound guidance with a 21 gauge needle and a 0.018 inch wire was advanced. Access site was dilated with Peel-Away sheath and c atheter tailored to the appropriate length and advanced such that the distal tip is at the cavoatrial junction. Spot image was obtained verifying placement. Catheter was fixed to the skin with suture and a sterile dressing was placed following hemostasis. Catheter was aspirated and flushed with sali ne. Patient was discharged in stable condition without complication.Maximal barrier technique is uti lized. Ultrasound image is documented on the chart. Ultrasound used with sterile technique. Fluoro time and fluoroscopic images submitted to document procedure: 305 intraoperative C-arm images, 0.5 minutes fluoroscopy time IMPRESSION: STATUS POST ULTRASOUND AND FLUOROSCOPIC GUIDED PICC LINE PLACEMENT, READY FOR USE. THIS PROCEDURE WAS PERFORMED BY THE UNDERSIGNED.
--- NOTE | 2017-09-11 21:38 | P.PN ---
Subjective Progress Note Date: 09/10/17 Progress note being dictated for Dr. Vanessa. Interval history: This a 42-year-old gentleman admitted with left apical cellulitis, status post aspiration with MSSA and multiple other medical issues. Maintained on daptomycin as per infectious disease. Today complaining of significant increase in pain/tenderness of the affected site with increased firmness, edema, redness. Abdominal CT suboptimal reporting large olecranon fluid collection, possible bursitis, infected bursitis, multifocal abscess. Afebrile. 09/09/17 underwent left elbow septic olecranon bursectomy with wound irrigation and debridement. Tolerated procedure well. Pain controlled. Afebrile. Denies chest pain, palpitations or increasing shortness of breath. 09/10/17 pain better controlled, swelling and redness improved. Dressing changed , [place] drain present. Maintained on IV antibiotics as per infectious disease. Denies chest pain, palpitations or increasing shortness of breath. Afebrile. Objective - Vital Signs Vital signs: Vital Signs Temp 97.1 F L 09/10/17 14:54 Pulse 73 09/10/17 14:54 Resp 16 09/10/17 14:54 BP 156/91 09/10/17 14:54 Pulse Ox 94 L 09/10/17 14:54 Intake & Output 09/09/17 09/10/17 09/10/17 18:59 06:59 18:59 Intake Total 1240 Output Total 50 Balance 1190 Weight 106.594 kg Intake: IV 1000 Oral 240 Output: Estimated Blood Loss 50 Other: Voiding Method Toilet Toilet # Voids 2 1 3 - Exam PHYSICAL EXAM: VITAL SIGNS: As above GENERAL: Sitting up in of bed, no acute distress HEENT: Conjunctivae normal. eyes normal. Oral mucosa somewhat NECK: No JVD. No thyroid enlargement. No LNs CARDIOVASCULAR: S1, S2 muffled. No murmur RESPIRATION: Breath sounds diminished in the bases. No rhonchi or crackles. No bronchial breathing. ABDOMEN: Soft, nontender . No guarding. no masses palpable. Bowel sounds heard. LEGS: No edema. no swelling PSYCHIATRY: Alert and oriented -3, mood and affect normal. NERVOUS SYSTEM: Cranial N 2-12 grossly normal. Moves all 4 limbs. Diffuse weakness No focal deficits. Skin: Left arm/elbow dressing clean dry and intact. Lymphatic system. No LN neck axilla or groin. Microbiology 09/04/17 15:50 Elbow - Left Anaerobic Culture - Final 09/02/17 21:44 Blood Blood Culture - Final No Growth after 144 hours 09/04/17 15:50 Elbow - Left Gram Stain - Final 09/04/17 15:50 Elbow - Left Wound Culture - Final Staphylococcus aureus - Labs CBC & Chem 7: 09/11/17 07:41 09/11/17 07:41 Labs: Abnormal Lab Results - Last 24 Hours (Table) 09/10/17 Range/Units 09:53 WBC 10.9 H (3.8-10.6) k/uL Hgb 12.4 L (13.0-17.5) gm/dL Hct 38.2 L (39.0-53.0) % RDW 15.9 H (11.5-15.5) % Neutrophils # 8.7 H (1.3-7.7) k/uL Assessment and Plan Assessment: 1. Left elbow cellulitis, acute left elbow septic olecranon bursitis, status post bursectomy with I&D. Initial aspiration with MSSA. 2. History of MRSA previously 3. History of anxiety Plan: Continue on current medication regime ,monitoring and symptomatic treatment. Antibiotics as per infectious disease. Discharge planning in progress for tomorrow, pending clearance from ID and orthopedics. The impression and plan of care has been dictated as directed. : I performed a history and examination of this patient, discussed the same with the dictator. I agree with the dictator's note ,documented as a scribe. Any additional findings or plans will be noted.
--- NOTE | 2017-09-11 22:59 | DS ---
DISCHARGE SUMMARY DATE OF SERVICE: 09/11/2017 FINAL DIAGNOSES: 1. Left elbow cellulitis, acute left septic olecranon bursitis, status post bursectomy and incision and drainage with methicillin-susceptible Staphylococcus aeruginosa. 2. History of methicillin-resistant Staphylococcus aureus previously. 3. History of anxiety. DISCHARGE DISPOSITION: The patient will be discharged in stable condition with guarded prognosis. HISTORY OF PRESENT ILLNESS: This 42-year-old gentleman with a past medical history of multiple medical problems was admitted with left elbow cellulitis and recurrent bursitis. Initially the patient improved significantly, but subsequently the patient had recurrence of symptoms and bursectomy was done by Orthopedic Surgery. Patient was started on IV antibiotics. PICC line was recommended by Dr. Long. On exam, vitals are stable. CARDIOVASCULAR SYSTEM: S1, S2 muffled. ABDOMEN: Soft. NERVOUS SYSTEM: No focal deficit. DISCHARGE ADVICE AND MEDICATIONS: 1. Diet is cardiac. 2. Activity limited until followup. 3. Follow up with Dr. Hubbard in 2 to 3 days. 4. Follow up with Dr. Bruce as recommended. 5. 5-hydroxytryptophan 50 mg p.o. daily. 6. Tylenol Arthritis 650 q.4 p.r.n. 7. Lipitor 40 mg at bedtime. 8. Rocephin 2 grams IV daily for 3 weeks. 9. Vitamin D3 2000 daily. 10.[place] 5 mg q.6 p.r.n. 11.Mobic 15 mg p.o. daily. 12.Multivitamins 1 p.o. daily. 13.Requip 1 mg p.o. at bedtime. 14.Effexor XR 75 mg p.o. daily. Once again, the patient will be discharged in stable condition with guarded prognosis. MMODL / IJN: [id number] /
== END 2017-09-11 13:52 | disposition home or self-care (01) | DRG 501 ==
LOC: EC 19:09 → 4MS4W 22:26
PROVIDERS: ADMIT Hospitalist; ATTEND Hospitalist
PROC: 0R9M3ZX Drainage of Left Elbow Joint, Percutaneous Approach, Diagnostic (ICD-10-PCS; 2017-09-04)
PROC: 0MB40ZZ Excision of Left Elbow Bursa and Ligament, Open Approach (ICD-10-PCS; principal; 2017-09-09 10:40)
PROC: 02HV33Z Insertion of Infusion Device into Superior Vena Cava, Percutaneous Approach (ICD-10-PCS; 2017-09-11 10:50)
DX: M71.122 Other infective bursitis, left elbow (principal); L03.114 Cellulitis of left upper limb; E78.00 Pure hypercholesterolemia, unspecified; G25.81 Restless legs syndrome; F41.9 Anxiety disorder, unspecified; B95.61 Methicillin susceptible Staphylococcus aureus infection as the cause of diseases classified elsewhere; Z79.899 Other long term (current) drug therapy; Z79.1 Long term (current) use of non-steroidal anti-inflammatories (NSAID); Z86.14 Personal history of Methicillin resistant Staphylococcus aureus infection
CPT/HCPCS: 36415; 36569; 76937; 77001; 80048; 80053; 83605; 85025; 85610; 85652; 85730; 86140; 87040; 87070; 87075; 87077; 87186; 87205; 88304; 88305; 89060; 96361; 96365; 96375; 99284

== ENCOUNTER 2017-11-28 08:54 | Observation (INO) | payer BC ==
[~2017-11-28 08:54] MED LIST: Pre Op ABX Message 1 EACH MISC MISCELLANE ONE
[2017-11-28] MEDS ORDERED: LACTATED RINGERS 1,000 ML IV SCH (09:04)
[2017-11-28] MEDS ORDERED: DEXAMETHASONE SOD PHOSPHATE 10 MG/ML 1 ML VIAL IV ONE (09:04)
[2017-11-28] MEDS ORDERED: ONDANSETRON 4 MG/2 ML VIAL IVP ONE (09:04)
[2017-11-28] MEDS ORDERED: MIDAZOLAM 2 MG/2 ML VIAL IV PRN (09:04)
[2017-11-28] MEDS ORDERED: LIDOCAINE 1% 20 ML VIAL (10MG/ML) FOR IV START INTRADERMA PRN (09:04)
[2017-11-28] MEDS ORDERED: SCOPOLAMINE 1.5MG/72HR PATCH TRANSDERM ONE (09:04)
[2017-11-28 09:21] VITALS: RESP 16
[2017-11-28] MEDS ORDERED: PROPOFOL 10 MG/ML 20 ML VIAL IV ONE (11:44)
[2017-11-28] MEDS ORDERED: fentaNYL (PF) 50 MCG/ML 2 ML AMP ONE (11:44)
[2017-11-28] MEDS ORDERED: LIDOCAINE 1% INJ 10MG/ML (20 ML MDV) ONE (11:44)
[2017-11-28] MEDS ORDERED: MORPHINE SULFATE 10 MG/ML SYRINGE ONE (11:44)
[2017-11-28] MEDS ORDERED: MIDAZOLAM 2 MG/2 ML VIAL ONE (11:44)
[2017-11-28] MEDS: VANCOMYCIN 1,500 MG in SODIUM CHLORIDE 0.9% 250 ML IVPB ONE ×2 (12:16→12:31)
[2017-11-28] MEDS ORDERED: SENNOSIDES-DOCUSATE SODIUM 1 EACH TAB PO PRN (12:41)
[2017-11-28] MEDS ORDERED: ONDANSETRON 4 MG/2 ML VIAL IVP PRN (12:41)
[2017-11-28] MEDS ORDERED: HYDROcodone/APAP 5-325MG 1 EACH TAB PO PRN ×2 (12:41)
[2017-11-28] MEDS ORDERED: hydrOXYzine PAMOATE 25 MG CAP PO PRN (12:41)
[2017-11-28] MEDS ORDERED: diphenhydrAMINE 25 MG CAP PO PRN (12:41)
[2017-11-28] MEDS ORDERED: METOCLOPRAMIDE 5 MG/ML 2 ML VIAL IVP PRN (12:41)
[2017-11-28] MEDS ORDERED: TEMAZEPAM 15 MG CAP PO PRN (12:41)
[2017-11-28] MEDS ORDERED: MEPERIDINE 50 MG/ML SYRINGE IVP ONE ×2 (12:44→12:56)
[2017-11-28] MEDS ORDERED: diphenhydrAMINE 50 MG/ML 1 ML VIAL IVP ONE (12:46)
[2017-11-28] MEDS ORDERED: VANCOMYCIN IV PER PHARMACY 1 EACH MISC MISCELLANE PRN (12:48)
[2017-11-28] MEDS: MORPHINE SULFATE 4 MG/ML SYRINGE IVP PRN ×3 (13:01→13:40)
[2017-11-28 15:21] LABS: Anion Gap 16 mmol/L; Blood Urea Nitrogen 14 mg/dL (9-20); Calcium 9.6 mg/dL (8.4-10.2); Carbon Dioxide 21 mmol/L (22-30); Chloride 107 mmol/L (98-107); Glucose 115 mg/dL (74-99); Potassium 4.4 mmol/L (3.5-5.1); Sodium 144 mmol/L (137-145)
[2017-11-28 15:27] VITALS: BMI 35.9
[2017-11-28] MEDS: MORPHINE SULFATE 4 MG/ML SYRINGE IV PRN ×3 (15:58→22:22)
--- NOTE | 2017-11-28 16:09 | P.CONS ---
History of Present Illness - Reason for Consult Consult date: 11/28/17 - Chief Complaint pain left elbow - History of Present Illness Pleasant 42-year-old male known to the infectious disease service from his prior MRSA abscess of his right thigh. 2 years ago he had the sudden onset of the abscess to his right thigh required surgical incision and drainage and anterior the wound healing Center. Eventually improved is a relatively well until a few weeks ago. Sudden onset of swelling and discomfort to his left elbow occurred. This event occurred just 2 days before he was to go on a cruise, he was seen and a steroid injection was placed into the elbow area. He felt well enough for the trip and did well. Upon returning home to seek further care. The elbow did swell a bit and he again had a steroid injection. However since then it has markedly worsened with extensive swelling and discomfort to the lateral aspect of the elbow. He's had some fever without much chill. The elbow and arm itself is swollen quite a bit in the tenderness again markedly increased. Because of the markedly worsening status he was brought to the hospital and was seen by surgery and eventually had to surgical incision and drainage to the olecranon bursa. He then completed a multi week course of intravenous antibiotic therapy for the MSSA that was isolated. He should've resolution of infection was taken to the operating room and had the debridement and closure of the olecranon bursa he was doing well. However nearly a week later it suddenly became warm swollen and very tender and was sent back to the surgeon. Extremities without ringworm for incision and drainage that site. Drainage in place and he is having improvement except for the pain. Denies fevers or chills. Review of Systems HEENT:Denies headache or acute visual change. Denies sinus or mouth discomforts. Denies neck stiffness or pain. Denies significant oral cavity pain. Denies difficulty on swallowing. Lungs: Denies significant shortness of breath, cough, sputum production, or hemoptysis. Cardiovascular: Denies significant shortness of breath, chest pain, chest wall pain, orthopnea, dyspnea on exertion, syncope Gastrointestinal:Denies nausea, vomiting, diarrhea, constipation, hematemesis, melena, hematochezia. No no significant change of bowel habit noticed. Musculoskeletal: denies significant myalgias or arthralgias. As related in the HPI pain and swelling to the left elbow Skin: As in HPI is evidence second swelling and erythema to the left arm and elbow area Neuro: Denies headache or visual change. Denies any new onset weakness or difficulty with ambulation. Denies falls or seizures. Psychiatric:Denies anxiety or depression. Endocrine: Denies significant fatigue, denies significant weight loss or weight gain. Past Medical History Past Medical History: CVA/TIA, Eye Disorder, Hyperlipidemia, Hypertension, Osteoarthritis (OA), Respiratory Disorder, Sleep Apnea/CPAP/BIPAP Additional Past Medical History / Comment(s): History of MRSA abscess to his right thigh several years ago required surgical incision and drainage. 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 Works at the [employer] in [place]. The experience. He does travel to the [facility] no other recent travel as occurred. No animal exposures. No current tobacco or alcohol use. No recreational drug use. Smoking Status: Former smoker Past Alcohol Use History: None Reported Past Drug Use History: None Reported Additional Drug Use History / Comment(s): opiod issues - Past Family History Mother Family Medical History: No Reported History Father Additional Family Medical History / Comment(s): heart murmur, heart stents Medications and Allergies Home Medications and Allergies Comment(s): Current Medications Hydrocodone Bitart/Acetaminophen (Rosepine 5-325) 1 each PO Q6HR PRN PRN Reason: Pain Scale 1 to 5 Hydrocodone Bitart/Acetaminophen (Rosepine 5-325) 2 each PO Q6HR PRN PRN Reason: Pain Scale 6 to 10 Diphenhydramine HCl (Benadryl) 25 mg PO HS PRN PRN Reason: Insomnia Hydroxyzine Pamoate (Vistaril) 25 mg PO Q6HR PRN PRN Reason: Nausea/Anxiety Last Admin: 11/28/17 15:57 Dose: 25 mg Lactated Ringer's (Lactated Ringers) 1,000 mls @ 100 mls/hr IV .Q10H SNEHA Linezolid 600 mg/ IV Solution 300 mls @ 150 mls/hr IVPB Q12HR SNEHA Lidocaine HCl (.Xylocaine 1% Inj (10mg/Ml) For Iv Start) 0.1 ml INTRADERMA PER PROTOCOL PRN PRN Reason: IV Start Last Admin: 11/28/17 09:28 Dose: 0.1 ml Midazolam HCl (Versed) 2 mg IV ONCE PRN PRN Reason: Anxiety Stop: 11/29/17 09:05 Last Admin: 11/28/17 10:24 Dose: 2 mg Morphine Sulfate (Morphine Sulfate (Inj)) 4 mg IVP Q5M PRN PRN Reason: Pain Control Stop: 11/29/17 09:05 Last Admin: 11/28/17 13:40 Dose: 4 mg Morphine Sulfate (Morphine Sulfate (Inj)) 2 mg IV Q3HR PRN PRN Reason: Pain Scale 4 to 5 Last Admin: 11/28/17 15:58 Dose: 2 mg Ondansetron HCl (Zofran) 4 mg IVP Q6HR PRN PRN Reason: Nausea And Vomiting Senna/Docusate Sodium (Senokot-S) 2 each PO HS PRN PRN Reason: Constipation Temazepam (Restoril) 15 mg PO HS PRN PRN Reason: Insomnia Home Medications Medication Instructions Recorded Confirmed Type Atorvastatin [Lipitor] 40 mg PO HS 09/02/17 11/28/17 History Cholecalciferol [Vitamin D3] 2,000 unit PO DAILY 09/02/17 11/28/17 History Meloxicam [Mobic] 15 mg PO DAILY 09/02/17 11/28/17 History Venlafaxine HCl [Effexor XR] 75 mg PO DAILY 09/02/17 11/28/17 History rOPINIRole HCL [Requip] 1 mg PO DAILY 09/02/17 11/28/17 History 5-Hydroxytryptophan (5-Htp) [5-Htp 100 mg PO HS 11/28/17 11/28/17 History (Natrol)] Acetaminophen-Codeine 300-30mg 1 - 2 tab PO Q4-6H PRN 11/28/17 11/28/17 History [Tylenol w/codeine #3] Lisinopril [Zestril] 10 mg PO DAILY 11/28/17 11/28/17 History Allergies Allergy/AdvReac Type Severity Reaction Status Date / Time No Known Allergies Allergy Verified 11/28/17 09:17 Physical Exam Vitals: Vital Signs Temp Pulse Resp BP Pulse Ox 11/28/17 13:39 80 16 112/66 96 11/28/17 13:24 68 16 101/63 94 L 11/28/17 13:08 69 16 117/64 96 11/28/17 12:53 77 16 110/78 95 11/28/17 12:38 97.5 F L 83 16 118/74 96 11/28/17 10:40 72 16 95 11/28/17 09:18 97.5 F L 69 16 118/75 98 Intake and Output 11/28/17 11/28/17 11/28/17 06:59 14:59 22:59 Intake Total 1000 Output Total 2 Balance 998 Intake: IV 1000 Output: Estimated Blood Loss 2 Other: Weight 110.5 kg Pleasant 42-year-old male with a muscular build but is overweight. HEENT: Anicteric conjunctiva are pink and moist nasal mucosa grossly intact without significant lesions, there is no thrush. Neck: The neck is supple without significant lymphadenopathy or thyromegaly. Lungs: Good bilateral air entry without significant crackles or wheezing. There is no significant bronchial sounds. There is no egophony or dullness. Heart: Regular rate and rhythm with an audible S1-S2, no S3 no S4. There is no significant murmur click or rub, PMI was nondisplaced. Abdomen: Positive bowel sounds soft and nontender without palpable masses or organomegaly. There was no guarding or rebound. Extremities: The right upper extremity is without any abnormality no significant petechiae or telangiectasia. Left arm reveals evidence of a surgical dressing in place. However when it was evaluated yesterday was evidence of the distinct erythema on the distal arm more at the triceps and biceps area. A bit of extension onto the olecranon area. It was extremely tender warm but not fluctuant. Extremities gapping recommended trainers been put into place. The lower extremities are free from significant edema. The peripheral pulses were 2+ and symmetric. Neuro: Awake alert oriented to person place and time. There are no acute new gross focal sensory motor deficits. Results CBC & Chem 7: 11/28/17 14:42 Labs: Abnormal Lab Results - Last 24 Hours (Table) 11/28/17 Range/Units 14:42 Carbon Dioxide 21 L (22-30) mmol/L Glucose 115 H (74-99) mg/dL Laboratory Results Sodium 144 mmol/L (137-145) 11/28/17 14:42 Potassium 4.4 mmol/L (3.5-5.1) 11/28/17 14:42 Chloride 107 mmol/L (98-107) 11/28/17 14:42 Carbon Dioxide 21 mmol/L (22-30) L 11/28/17 14:42 Anion Gap 16 mmol/L 11/28/17 14:42 BUN 14 mg/dL (9-20) 11/28/17 14:42 Creatinine 0.80 mg/dL (0.66-1.25) 11/28/17 14:42 Est GFR (CKD-EPI)AfAm >90 (>60 ml/min/1.73 sqM) 11/28/17 14:42 Est GFR (CKD-EPI)NonAf >90 (>60 ml/min/1.73 sqM) 11/28/17 14:42 Glucose 115 mg/dL (74-99) H 11/28/17 14:42 Calcium 9.6 mg/dL (8.4-10.2) 11/28/17 14:42 Assessment and Plan (1) Olecranon bursitis of left elbow Narrative/Plan: 42-year-old male who has a history of an injury to his left olecranon bursa and underwent steroid injection. Afterward developed a significant infection to that site. MSSA was isolated in his completed an extensive course of antibiotic therapy and to surgical incision and drainage to the area. He was actually showing marked improvement after a closure to the nonhealing area of the bursa. Then had a sudden change with the increasing swelling. He is having taken the operating room and the area has been debrided. Fortunately he is doing relatively well and a drain was put into place. We'll initiate antibiotic therapy with Zyvox and hopes that he will tolerate this well and we can utilizes oral antibiotic therapy to complete the course of his treatment and since he has failed prior antibiotics during his last stay with vancomycin and cefepime and Rocephin. Patient will likely discharge tomorrow. Antibiotic is sent to the pharmacy to ensure that he was ready for him at the time of his discharge. Current Visit: No Status: Acute Code(s): M70.22 - OLECRANON BURSITIS, LEFT ELBOW SNOMED Code(s): 849473659
[2017-11-28] MEDS: LACTATED RINGERS 1,000 ML IV SCH (16:21)
[2017-11-28] MEDS ORDERED: Acetaminophen-Codeine 300-30mg TAB PO PRN (16:22)
[2017-11-28] MEDS: Acetaminophen-Codeine 300-30mg TAB PO PRN ×2 (17:03→20:58)
[2017-11-28] MEDS: ATORVASTATIN 40 MG TAB PO SCH (20:57)
[2017-11-28] MEDS: LINEZOLID 600 MG in DEXTROSE/WATER 1 300ML.BAG IVPB SCH (20:58)
[2017-11-28] MEDS ORDERED: HYDROXYTRYPTOPHAN 100 MG PO SCH (21:00)
[2017-11-29] MEDS: MORPHINE SULFATE 4 MG/ML SYRINGE IV PRN ×6 (01:07→21:57)
[2017-11-29] MEDS: Acetaminophen-Codeine 300-30mg TAB PO PRN ×6 (01:08→20:39)
[2017-11-29 07:39] LABS: Basophils % (A) 0 %; Eosinophils # (A) 0.3 k/uL (0-0.7); Eosinophils % (A) 3 %; HCT 39.6 % (39.0-53.0); HGB 13.5 gm/dL (13.0-17.5); Lymphocytes # (A) 1.2 k/uL (1.0-4.8); Lymphocytes % (A) 12 %; MCH 28.2 pg (25.0-35.0); MCHC 34.1 g/dL (31.0-37.0); MCV 82.7 fL (80.0-100.0); Mean Platelet Volume 8.7; Monocytes # (A) 0.5 k/uL (0-1.0); Monocytes % (A) 5 %; Neutrophils % (A) 80 %; Platelet Count 222 k/uL (150-450); RBC 4.79 m/uL (4.30-5.90); RDW 14.9 % (11.5-15.5)
[2017-11-29] MEDS: LISINOPRIL 10 MG TAB PO SCH (08:00)
[2017-11-29] MEDS: LINEZOLID 600 MG in DEXTROSE/WATER 1 300ML.BAG IVPB SCH ×2 (08:00→20:41)
[2017-11-29 08:37] LABS: Anion Gap 13 mmol/L; Calcium 9.1 mg/dL (8.4-10.2); Carbon Dioxide 21 mmol/L (22-30); Chloride 109 mmol/L (98-107); Glucose 187 mg/dL (74-99); Sodium 143 mmol/L (137-145)
[2017-11-29 08:44] LABS: Blood Urea Nitrogen 14 mg/dL (9-20)
[2017-11-29] MEDS ORDERED: VENLAFAXINE HCL ER 75 MG CAP PO SCH (09:00)
--- NOTE | 2017-11-29 09:03 | P.PN ---
Subjective Progress Note Date: 11/29/17 Principal diagnosis: Infected olecranon bursitis left elbow, recurrent. Status post irrigation and debridement left elbow. History of MRSA. This is a 42-year-old male admitted after irrigation and debridement of his left elbow. 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 Cultures are pending. He reports increased pain to the left elbow. He states that the pain now feels more deep than before. He has had no fever or chills. Labs are fairly normal. Objective - Vital Signs Vital signs: Vital Signs Temp 98.4 F 11/29/17 08:17 Pulse 75 11/29/17 08:17 Resp 16 11/29/17 01:42 BP 130/80 11/29/17 08:17 Pulse Ox 95 11/29/17 08:17 Intake & Output 11/28/17 11/29/17 11/29/17 18:59 06:59 18:59 Intake Total 1237 1640 Output Total 2 5 Balance 1235 1635 Weight 110.5 kg Intake: IV 1000 Intake, IV Titration 550 Amount Linezolid 600 mg In 300 Dextrose/Water 1 300ml. bag @ 150 mls/hr IVPB Q12HR SNEHA Rx#:[id number] Vancomycin 1,500 mg In 250 Sodium Chloride 0.9% 250 ml @ 125 mls/hr IVPB ONCE ONE Rx#:[id number] Oral 237 1090 Output: Drainage 5 Left Elbow 5 Estimated Blood Loss 2 Other: Voiding Method Toilet Toilet # Voids 3 - Exam This is a pleasant 42-year-old male in no acute distress. He is alert and oriented 3. Exam of the left upper extremity reveals that his dressing is intact. The erythema to his upper arm is improved. Hemovac drain is in place. He has full wrist and finger motion without difficulty or pain. Neurovascular status to the upper extremity is intact. - Labs CBC & Chem 7: 11/29/17 07:22 11/29/17 07:22 Labs: Abnormal Lab Results - Last 24 Hours (Table) 11/28/17 11/29/17 11/29/17 Range/Units 14:42 07:22 07:22 Neutrophils # 8.0 H (1.3-7.7) k/uL Chloride 109 H (98-107) mmol/L Carbon Dioxide 21 L 21 L (22-30) mmol/L Glucose 115 H 187 H (74-99) mg/dL Microbiology - Last 24 Hours (Table) 11/28/17 12:31 Gram Stain - Preliminary Elbow - Left Wound Culture - Preliminary 11/28/17 12:30 Gram Stain - Preliminary Elbow - Left Wound Culture - Preliminary 11/28/17 12:31 Fungal Culture - Preliminary Elbow - Left 11/28/17 12:30 Anaerobic Culture - Preliminary Elbow - Left 11/28/17 12:30 Fungal Culture - Preliminary Elbow - Left 11/28/17 12:31 Anaerobic Culture - Preliminary Elbow - Left Assessment and Plan (1) Cellulitis of left arm Current Visit: No Status: Acute Priority: Medium Code(s): L03.114 - CELLULITIS OF LEFT UPPER LIMB SNOMED Code(s): 309841208 (2) Olecranon bursitis of left elbow Current Visit: No Status: Acute Code(s): M70.22 - OLECRANON BURSITIS, LEFT ELBOW SNOMED Code(s): 989448772 (3) Status post incision and drainage Current Visit: No Status: Acute Code(s): Z98.890 - OTHER SPECIFIED POSTPROCEDURAL STATES SNOMED Code(s): 031921832 Plan: The clinical findings are discussed with the patient. We will keep the Hemovac drain in place. His dressing may be changed later today. We will await cultures. I discussed with the patient that his increased pain is most likely secondary to the irrigation with Pulsavac and the debridement. I will obtain an x-ray to confirm that there is no bony involvement. Continue IV antibiotics per Dr. Long.
[2017-11-29] MEDS ORDERED: MELOXICAM 7.5 MG TAB PO ONE ×2 (13:01→15:45)
--- NOTE | 2017-11-29 14:32 | XR ---
EXAMINATION TYPE: XR elbow complete LT DATE OF EXAM: 11/29/2017 COMPARISON: 09/02/2017 HISTORY: Left elbow pain infection. TECHNIQUE: 3 views FINDINGS: There is a posterior drain at the olecranon process of the ulna. I see no fracture nor disl ocation. There is no sign of elbow joint effusion. Joint spaces are normal. IMPRESSION: Posterior drain is noted. No evidence of osteomyelitis.
[2017-11-29] MEDS: LACTATED RINGERS 1,000 ML IV SCH ×3 (15:54→20:41)
[2017-11-29] MEDS: ENOXAPARIN 40 MG/0.4 ML SYRINGE SQ SCH (16:30)
--- NOTE | 2017-11-29 20:16 | CONS ---
CONSULTATION DATE OF CONSULTATION: 11/29/2017 REASON FOR CONSULTATION: Medical management requested by Dr. Bruce. CONSULTATION: This is a very pleasant 42-year-old patient who initially presented to the hospital back on September 03. The patient follows with Dr. Hubbard and chronic stable medical conditions include anxiety, restless leg syndrome, hypercholesteremia. Two weeks prior to that presentation, the patient noted some swelling around the left elbow, had seen Dr. Hubbard, received a cortisone shot and then he got it did improve and it started to swell up and looking a bit worse. He did go and see Dr. Bruce then and then the patient decided to present to the hospital. I and D was carried out. Patient did grow MSSA and patient was given a course of IV antibiotics. The patient healed well. The patient went back and the patient had it sutured, the olecranon bursa site. Then the patient subsequently developed other pain and swelling and the patient was taken back to the OR. I and D was again carried out. The patient has a Hemovac drain in place, now admitted to the hospital with IV antibiotics. Some pain at the operative site is present. No fever, chills. REVIEW OF SYSTEMS: CONSTITUTIONAL: None. HEENT: None. RESPIRATORY: None. CARDIOVASCULAR: None. GASTROINTESTINAL: None. GENITOURINARY: None. MUSCULOSKELETAL: As above. DERMATOLOGICAL: As above. LYMPHATICS: None. PSYCHIATRY: Some anxiety. NEUROLOGICAL: None. PAST MEDICAL HISTORY: Right thigh MRSA, restless leg syndrome, hypercholesteremia, left olecranon bursitis with cellulitis in the wound. PAST SURGICAL HISTORY: Brain surgery in 2010. SOCIAL HISTORY: No smoking. No recreational drugs. 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 . FAMILY HISTORY: Reviewed. Noncontributory to presentation. HOME MEDICATIONS: 1. Requip 1 mg p.o. daily. 2. Effexor XR 75 mg p.o. daily. 3. Mobic 50 mg p.o. daily. 4. Zestril 10 mg p.o. daily. 5. Vitamin D3 2000 units p.o. daily. 6. Lipitor 40 mg q.h.s. 7. Tylenol No. 3, 1-2 tablets q.4 p.r.n. 8. 5-hydroxytryptophan 100 mg q.h.s. 9. The patient is getting Zyvox 600 mg q.12. ALLERGIES: None. EXAMINATION: VITAL SIGNS: On presentation, temperature 97.5, pulse 83, respirations 16, blood pressure 118/74, pulse ox 96% on room air. GENERAL APPEARANCE: Average build, BMI 36. Sitting up on bed, awake. EYES: Pupils equal. Conjunctivae normal. HEENT: External appearance of nose and ears normal. Oral cavity normal. NECK: JVD not raised. Mass not palpable. RESPIRATORY: Effort normal. Lungs are clear. CARDIOVASCULAR: First and second sounds normal. No edema. ABDOMEN: Soft, nontender. Liver and spleen not palpable. LYMPHATIC: No lymph node palpable in neck and axillae. PSYCHIATRY: Alert and oriented x3. Mood and affect normal. NEUROLOGICAL: Pupils equal. Cranial nerve grossly intact. Power and sensation grossly intact. EXTREMITIES: Left elbow in a dressing with a Hemovac in place. INVESTIGATIONS: White count 10, hemoglobin 13.5. Potassium 5, BUN and creatinine are normal. The patient's left elbow cultures are pending. ASSESSMENT: 1. Recurrent left elbow olecranon bursitis, cellulitis, having had I and D done before and patient was treated for the course with methicillin-sensitive Staphylococcus aureus with recurrence of inflammation, abscess in that area. 2. Chronic anxiety disorder. 3. Restless legs syndrome. 4. Hypercholesteremia. 5. Obesity, BMI 36. PLAN: Home medications are resumed. Patient is put on IV linezolid. Cultures are pending. Care was discussed with the patient. Questions were answered. Thank you, Dr. Bruce. MMODL / IJN: [id number] /
[2017-11-29] MEDS: ATORVASTATIN 40 MG TAB PO SCH (20:40)
[2017-11-30] MEDS: Acetaminophen-Codeine 300-30mg TAB PO PRN ×5 (01:37→22:39)
[2017-11-30] MEDS: MORPHINE SULFATE 4 MG/ML SYRINGE IV PRN ×4 (01:37→11:51)
[2017-11-30] MEDS: LACTATED RINGERS 1,000 ML IV SCH ×3 (04:38→22:32)
[2017-11-30 07:20] LABS: Anion Gap 15 mmol/L; Blood Urea Nitrogen 13 mg/dL (9-20); Calcium 9.4 mg/dL (8.4-10.2); Carbon Dioxide 24 mmol/L (22-30); Chloride 106 mmol/L (98-107); Glucose 84 mg/dL (74-99); Potassium 4.3 mmol/L (3.5-5.1); Sodium 145 mmol/L (137-145)
[2017-11-30] MEDS: LINEZOLID 600 MG in DEXTROSE/WATER 1 300ML.BAG IVPB SCH (08:17)
[2017-11-30] MEDS: MELOXICAM 7.5 MG TAB PO SCH (08:18)
[2017-11-30] MEDS: LISINOPRIL 10 MG TAB PO SCH (08:19)
[2017-11-30] MEDS: ENOXAPARIN 40 MG/0.4 ML SYRINGE SQ SCH (08:19)
--- NOTE | 2017-11-30 10:15 | P.PN ---
Subjective Progress Note Date: 11/30/17 Principal diagnosis: Infected olecranon bursitis left elbow, recurrent. Status post irrigation and debridement left elbow. History of MRSA. This is a 42-year-old male admitted after irrigation and debridement of his left elbow. 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 Cultures are pending. He states that his pain is slightly improved today. He has had no fever or chills. He is had about 10 mL of drainage in the Hemovac per shift. Vital signs stable. Elbow x-rays are reviewed which show no bony abnormalities. No evidence of osteomyelitis. Objective - Vital Signs Vital signs: Vital Signs Temp 97.8 F 11/30/17 01:07 Pulse 57 L 11/30/17 01:07 Resp 16 11/30/17 01:07 BP 123/82 11/30/17 01:07 Pulse Ox 96 11/30/17 01:07 Intake & Output 11/29/17 11/30/17 11/30/17 18:59 06:59 18:59 Intake Total 711 1780 Output Total 15 Balance 711 1765 Intake: Intake, IV Titration 300 Amount Linezolid 600 mg In 300 Dextrose/Water 1 300ml. bag @ 150 mls/hr IVPB Q12HR SNEHA Rx#:[id number] Oral 711 1480 Output: Drainage 15 Left Elbow 15 Other: Voiding Method Toilet # Voids 2 2 - Exam This is a pleasant 42-year-old male in no acute distress. He is alert and oriented 3. Dressing is removed for exam today. The erythema to his upper arm is improved. Hemovac drain is in place. Incision looks good. There is minimal soft tissue swelling and no erythema about the incision. He has full wrist and finger motion without difficulty or pain. Elbow motion is improved. Neurovascular status to the upper extremity is intact. - Labs CBC & Chem 7: 11/29/17 07:22 11/30/17 06:47 Labs: Microbiology - Last 24 Hours (Table) 11/28/17 12:30 Gram Stain - Preliminary Elbow - Left Wound Culture - Preliminary 11/28/17 12:31 Gram Stain - Preliminary Elbow - Left Wound Culture - Preliminary Assessment and Plan (1) Cellulitis of left arm Current Visit: No Status: Acute Priority: Medium Code(s): L03.114 - CELLULITIS OF LEFT UPPER LIMB SNOMED Code(s): 289131494 (2) Olecranon bursitis of left elbow Current Visit: No Status: Acute Code(s): M70.22 - OLECRANON BURSITIS, LEFT ELBOW SNOMED Code(s): 097285043 (3) Status post incision and drainage Current Visit: No Status: Acute Code(s): Z98.890 - OTHER SPECIFIED POSTPROCEDURAL STATES SNOMED Code(s): 169896631 Plan: The clinical findings are discussed with the patient. We will keep the Hemovac drain in place. We will await cultures. Continue IV antibiotics per Dr. Long.
[2017-11-30] MEDS ORDERED: MORPHINE ORAL SOLN 10 MG/5 ML CUP PO PRN (12:20)
[2017-11-30] MEDS: LINEZOLID 600 MG TAB PO SCH (20:12)
[2017-11-30] MEDS: ATORVASTATIN 40 MG TAB PO SCH (20:12)
--- NOTE | 2017-11-30 22:41 | PN ---
PROGRESS NOTE DATE OF SERVICE: 11/30/2017. PRESENTING COMPLAINT: Left elbow infection. INTERVAL HISTORY: The patient is status post surgery in the left elbow for reinfection of olecranon bursa area, status post I and D with a drain in place. Pain is controlled. No nausea, vomiting, no diarrhea. Tolerating a diet, up and about. REVIEW OF SYSTEMS: Done for constitutional, cardiovascular, GI, pulmonary; relevant findings as above. CURRENT MEDICATIONS: Reviewed, include p.o. Zyvox. EXAMINATION: Temperature 97.8, pulse 57, respirations 16, blood pressure 122/82, pulse ox 96% on room air. GENERAL APPEARANCE: Sitting up comfortable. EYES: Pupils equal. Conjunctivae normal. HEENT: External appearance of ears and nose normal. Oral cavity normal. NECK: JVD not raised. Mass not palpable. Respiratory effort normal. LUNGS: Clear. CARDIOVASCULAR: 1st and 2nd heart sounds normal. No edema. ABDOMEN: Soft, nontender. Liver and spleen not palpable. PSYCHIATRY: Alert and oriented times three. Mood and affect normal. EXTREMITIES: Left arm in a dressing with a Hemovac in place. INVESTIGATIONS: Potassium 4.3, BUN and creatinine normal. The patient's Gram stain has not shown any growth. ASSESSMENT: 1. Recurrent left elbow olecranon bursitis, cellulitis, having had irrigation and debridement before. The patient is treated for MSSA with recurrence of inflammation, abscess in the area, status post I and D and drain in place. 2. Chronic anxiety disorder. 3. Restless legs syndrome. 4. Hypercholesteremia. 5. Obesity, BMI 36. PLAN: Care was discussed with the patient. Patient was switched over to p.o. Zyvox. Clinically patient is doing well. Will follow. MMODL / IJN: [id number] /
[2017-12-01] MEDS: Acetaminophen-Codeine 300-30mg TAB PO PRN ×3 (06:43→14:25)
[2017-12-01 08:05] LABS: Anion Gap 12 mmol/L; Blood Urea Nitrogen 14 mg/dL (9-20); Calcium 9.6 mg/dL (8.4-10.2); Carbon Dioxide 28 mmol/L (22-30); Chloride 103 mmol/L (98-107); Glucose 88 mg/dL (74-99); Potassium 4.7 mmol/L (3.5-5.1); Sodium 143 mmol/L (137-145)
[2017-12-01] MEDS: LINEZOLID 600 MG TAB PO SCH (08:23)
[2017-12-01] MEDS: LISINOPRIL 10 MG TAB PO SCH (08:23)
[2017-12-01] MEDS: MELOXICAM 7.5 MG TAB PO SCH (08:23)
[2017-12-01] MEDS: ENOXAPARIN 40 MG/0.4 ML SYRINGE SQ SCH (08:23)
--- NOTE | 2017-12-01 11:51 | P.PN ---
Subjective Progress Note Date: 12/01/17 Principal diagnosis: Infected olecranon bursitis left elbow, recurrent. Status post irrigation and debridement left elbow. History of MRSA. This is a 42-year-old male admitted after irrigation and debridement of his left elbow. 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 Cultures are pending. He states that his pain is slightly improved today. He has had no fever or chills. He is had about 10 mL of drainage in the Hemovac per shift. Vital signs stable. Elbow x-rays are reviewed which show no bony abnormalities. No evidence of osteomyelitis. Objective - Vital Signs Vital signs: Vital Signs Temp 98.1 F 12/01/17 08:23 Pulse 72 12/01/17 08:23 Resp 16 12/01/17 08:23 BP 111/71 12/01/17 08:23 Pulse Ox 94 L 12/01/17 08:23 Intake & Output 11/30/17 12/01/17 12/01/17 18:59 06:59 18:59 Intake Total 500 250 Balance 500 250 Intake: Oral 500 250 Other: Voiding Method Toilet # Voids 3 - Exam This is a pleasant 42-year-old male in no acute distress. He is alert and oriented 3. Dressing is removed for exam today. The erythema to his upper arm is improved. Hemovac drain is in place. Incision looks good. There is minimal soft tissue swelling and no erythema about the incision. He has full wrist and finger motion without difficulty or pain. Elbow motion is improved. Neurovascular status to the upper extremity is intact. - Labs CBC & Chem 7: 11/29/17 07:22 12/01/17 07:23 Labs: Microbiology - Last 24 Hours (Table) 11/28/17 12:30 Gram Stain - Final Elbow - Left Wound Culture - Final 11/28/17 12:31 Gram Stain - Final Elbow - Left Wound Culture - Final 11/28/17 12:30 Anaerobic Culture - Preliminary Elbow - Left 11/28/17 12:31 Anaerobic Culture - Preliminary Elbow - Left Assessment and Plan (1) Cellulitis of left arm Current Visit: No Status: Acute Priority: Medium Code(s): L03.114 - CELLULITIS OF LEFT UPPER LIMB SNOMED Code(s): 885469931 (2) Olecranon bursitis of left elbow Current Visit: No Status: Acute Code(s): M70.22 - OLECRANON BURSITIS, LEFT ELBOW SNOMED Code(s): 292741767 (3) Status post incision and drainage Current Visit: No Status: Acute Code(s): Z98.890 - OTHER SPECIFIED POSTPROCEDURAL STATES SNOMED Code(s): 640911198 Plan: The clinical findings are discussed with the patient. We will keep the Hemovac drain in place until seen by Dr. Long. Possible discharge to home today if cleared by Dr. Long. I will place him in a removable long-arm splint for mobilization. He may remove for showering.
[2017-12-01 14:46] VITALS: BP 138/68; PULSE 68; TEMP 97.9
--- NOTE | 2017-12-01 17:25 | P.PN ---
Subjective Progress Note Date: 12/01/17 Pleasant 42-year-old male known to the infectious disease service from his prior MRSA abscess of his right thigh. 2 years ago he had the sudden onset of the abscess to his right thigh required surgical incision and drainage and anterior the wound healing Center. Eventually improved is a relatively well until a few weeks ago. Sudden onset of swelling and discomfort to his left elbow occurred. This event occurred just 2 days before he was to go on a cruise, he was seen and a steroid injection was placed into the elbow area. He felt well enough for the trip and did well. Upon returning home to seek further care. The elbow did swell a bit and he again had a steroid injection. However since then it has markedly worsened with extensive swelling and discomfort to the lateral aspect of the elbow. He's had some fever without much chill. The elbow and arm itself is swollen quite a bit in the tenderness again markedly increased. Because of the markedly worsening status he was brought to the hospital and was seen by surgery and eventually had to surgical incision and drainage to the olecranon bursa. He then completed a multi week course of intravenous antibiotic therapy for the MSSA that was isolated. He should've resolution of infection was taken to the operating room and had the debridement and closure of the olecranon bursa he was doing well. However nearly a week later it suddenly became warm swollen and very tender and was sent back to the surgeon. Extremities without ringworm for incision and drainage that site. Drainage in place and he is having improvement except for the pain. Denies fevers or chills. 12/01/2017 reveals the patient to be markedly improved. Having no fever. Pain control is adequate after his surgical intervention. Photos from the site from today revealed with marked improvement of the erythema to the site. A elbow immobilizer has been put in place by orthopedics. Patient is tolerating antibiotic therapy of Zyvox with no difficulty. Objective - Vital Signs Vital signs: Vital Signs Temp 97.9 F 12/01/17 14:45 Pulse 68 12/01/17 14:45 Resp 16 12/01/17 14:45 BP 138/68 12/01/17 14:45 Pulse Ox 92 L 12/01/17 14:45 Intake & Output 11/30/17 12/01/17 12/01/17 18:59 06:59 18:59 Intake Total 500 450 Balance 500 450 Intake: Oral 500 450 Other: Voiding Method Toilet # Voids 3 1 - Exam Pleasant 42-year-old male with a muscular build but is overweight. HEENT: Anicteric conjunctiva are pink and moist nasal mucosa grossly intact without significant lesions, there is no thrush. Neck: The neck is supple without significant lymphadenopathy or thyromegaly. Lungs: Good bilateral air entry without significant crackles or wheezing. There is no significant bronchial sounds. There is no egophony or dullness. Heart: Regular rate and rhythm with an audible S1-S2, no S3 no S4. There is no significant murmur click or rub, PMI was nondisplaced. Abdomen: Positive bowel sounds soft and nontender without palpable masses or organomegaly. There was no guarding or rebound. Extremities: The right upper extremity is without any abnormality no significant petechiae or telangiectasia. Left arm reveals evidence of splint in place from orthopedics, photography shows resolution of the erythema drain in place that 10 mL amount of drainage at this time. The lower extremities are free from significant edema. The peripheral pulses were 2+ and symmetric. Neuro: Awake alert oriented to person place and time. There are no acute new gross focal sensory motor deficits. - Labs CBC & Chem 7: 11/29/17 07:22 12/01/17 07:23 Labs: Microbiology - Last 24 Hours (Table) 11/28/17 12:30 Gram Stain - Final Elbow - Left Wound Culture - Final 11/28/17 12:31 Gram Stain - Final Elbow - Left Wound Culture - Final 11/28/17 12:30 Anaerobic Culture - Preliminary Elbow - Left 11/28/17 12:31 Anaerobic Culture - Preliminary Elbow - Left Laboratory Results WBC 10.0 k/uL (3.8-10.6) 11/29/17 07:22 RBC 4.79 m/uL (4.30-5.90) 11/29/17 07:22 Hgb 13.5 gm/dL (13.0-17.5) 11/29/17 07:22 Hct 39.6 % (39.0-53.0) 11/29/17 07:22 MCV 82.7 fL (80.0-100.0) 11/29/17 07:22 MCH 28.2 pg (25.0-35.0) 11/29/17 07:22 MCHC 34.1 g/dL (31.0-37.0) 11/29/17 07:22 RDW 14.9 % (11.5-15.5) 11/29/17 07:22 Plt Count 222 k/uL (150-450) 11/29/17 07:22 Neutrophils % 80 % 11/29/17 07:22 Lymphocytes % 12 % 11/29/17 07:22 Monocytes % 5 % 11/29/17 07:22 Eosinophils % 3 % 11/29/17 07:22 Basophils % 0 % 11/29/17 07:22 Neutrophils # 8.0 k/uL (1.3-7.7) H 11/29/17 07:22 Lymphocytes # 1.2 k/uL (1.0-4.8) 11/29/17 07:22 Monocytes # 0.5 k/uL (0-1.0) 11/29/17 07:22 Eosinophils # 0.3 k/uL (0-0.7) 11/29/17 07:22 Basophils # 0.0 k/uL (0-0.2) 11/29/17 07:22 Sodium 143 mmol/L (137-145) 12/01/17 07:23 Potassium 4.7 mmol/L (3.5-5.1) 12/01/17 07:23 Chloride 103 mmol/L (98-107) 12/01/17 07:23 Carbon Dioxide 28 mmol/L (22-30) 12/01/17 07:23 Anion Gap 12 mmol/L 12/01/17 07:23 BUN 14 mg/dL (9-20) 12/01/17 07:23 Creatinine 0.89 mg/dL (0.66-1.25) 12/01/17 07:23 Est GFR (CKD-EPI)AfAm >90 (>60 ml/min/1.73 sqM) 12/01/17 07:23 Est GFR (CKD-EPI)NonAf >90 (>60 ml/min/1.73 sqM) 12/01/17 07:23 Glucose 88 mg/dL (74-99) 12/01/17 07:23 Calcium 9.6 mg/dL (8.4-10.2) 12/01/17 07:23 Microbiology 11/28/17 12:30 Elbow - Left Gram Stain - Final 11/28/17 12:30 Elbow - Left Wound Culture - Final 11/28/17 12:31 Elbow - Left Gram Stain - Final 11/28/17 12:31 Elbow - Left Wound Culture - Final 11/28/17 12:30 Elbow - Left Anaerobic Culture - Preliminary 11/28/17 12:31 Elbow - Left Anaerobic Culture - Preliminary 11/28/17 12:31 Elbow - Left Fungal Culture - Preliminary 11/28/17 12:30 Elbow - Left Fungal Culture - Preliminary Assessment and Plan (1) Olecranon bursitis of left elbow Narrative/Plan: 42-year-old male who has a history of an injury to his left olecranon bursa and underwent steroid injection. Afterward developed a significant infection to that site. MSSA was isolated in his completed an extensive course of antibiotic therapy and to surgical incision and drainage to the area. He was actually showing marked improvement after a closure to the nonhealing area of the bursa. Then had a sudden change with the increasing swelling. He is having taken the operating room and the area has been debrided. Fortunately he is doing relatively well and a drain was put into place. We'll initiate antibiotic therapy with Zyvox and hopes that he will tolerate this well and we can utilizes oral antibiotic therapy to complete the course of his treatment and since he has failed prior antibiotics during his last stay with vancomycin and cefepime and Rocephin. Patient will likely discharge tomorrow. Antibiotic is sent to the pharmacy to ensure that he was ready for him at the time of his discharge. 12/01/2017 the patient is improved. He control is adequate. All cultures are negative at this point in time, the patient had extensive antibiotic exposure prior to his surgery. Patient is much more comfortable and is willing to go home. Drain will be left in place to seen in the office on Friday. The drainage is minimal in the good range in the office at that time. Continue ongoing pain control of the Tylenol with Codeine that he was given from the office recently. Antibiotic therapy with Zyvox 600 mg orally every 12 hours which she is tolerating well. Pharmacy is contacted he has a 6 to her co-pay will pick the medication up for his discharge. Status: Acute Code(s): M70.22 - OLECRANON BURSITIS, LEFT ELBOW SNOMED Code(s ): 444044034
--- NOTE | 2017-12-02 03:33 | PN ---
PROGRESS NOTE DATE OF SERVICE: December 01, 2017. PRESENTING COMPLAINT: Left elbow infection. INTERVAL HISTORY: This patient has recurrent infection of the olecranon bursa, status post I and D, doing much better today. Drain is being taken off. I saw this patient this morning. Tolerating his diet. REVIEW OF SYSTEMS: Done for constitutional, cardiovascular, GI, pulmonary, musculoskeletal and relevant findings as above. CURRENT MEDICATIONS: Include Zyvox. PHYSICAL EXAMINATION: Temperature 98.1, pulse 72, respirations 16, blood pressure 111/71, pulse ox 94% on room air. General appearance: Sitting on the bed comfortable. Eyes: Pupils equal. Conjunctivae normal. HEENT: External appearance of nose and ears normal. Oral cavity normal. Neck: JVD not raised. Mass not palpable. Respiratory effort normal. LUNGS: Clear. Cardiovascular 1st and second sounds normal. No edema. ABDOMEN: Soft, nontender. Liver and spleen not palpable. Psychiatry: Alert and oriented times three. Mood and affect normal. Extremities: Left arm in a dressing. INVESTIGATIONS: Cultures have been negative. Potassium 4.7. ASSESSMENT: 1. Recurrent left elbow olecranon bursitis, cellulitis, status post I and D, cultures repeat remain negative. 2. Chronic anxiety disorder. 3. Restless legs syndrome. 4. Hypercholesteremia. 5. Obesity BMI 36. PLAN: Care was discussed with the patient. Dr. Long is planning to send the patient home on Zyvox. Follow up appointments with his PCP. MMODL / IJN: [id number] /
--- NOTE | 2017-12-17 15:16 | P.OP ---
Date of Procedure: 11/28/17 Procedure(s) Performed: PREOPERATIVE DIAGNOSES: 1. Left elbow recurrent septic olecranon bursitis POSTOPERATIVE DIAGNOSES: 1. Left elbow recurrent septic olecranon bursitis PROCEDURES PERFORMED: 1. Left elbow repeat olecranon bursectomy and closure over Hemovac drain 2. Left elbow septic olecranon bursitis wound irrigation and debridement ( sharp debridement with knife: skin, subcutaneous tissue, bursal tissue) ANESTHESIA: Gen. RURAL CARRIER: None COMPLICATIONS: None ESTIMATED BLOOD LOSS: 20 mL. DISPOSITION: To post-anesthesia care unit INDICATIONS: Abdoul is a 41-year-old male with a history of olecranon bursal infection with MSSA which has failed antibiotic treatment. Initially he was doing very well with an initial debridement in August, and subsequent outpatient treatment with IV antibiotics. However, over the past week, he has developed increased redness along the posterior aspect of his arm tracking up the arm to a significant degree and increased pain and swelling. Dr. Long has recommended repeat irrigation and debridement. For these reasons and after full and detailed explanation of the risks and potential complications, the patient wishes to proceed with operative intervention. I have described the risks and potential complications as being inclusive of, but not limited to : Bleeding, infection, scarring, discomfort, blood vessel and/or nerve damage, persistent infection, osteomyelitis, involvement of the tendon of the triceps, stiffness, persistent swelling, weakness, sepsis, chronic wound, loss of limb and/or life, blood clot, pulmonary embolism, and other risks. The patient is aware these risks and wishes to proceed with surgery. Consent form has been signed. PROCEDURE: After appropriate consent was obtained, the patient was taken to the operating room placed in the supine position. Anesthesia was initiated, and after confirmation of adequate anesthesia, the patient was carefully positioned. Care was taken to make sure that all pressure points were adequately padded. Prepping and draping were completed in the usual aseptic fashion using a combination of Hibiclens prep and ChloraPrep. Timeout was called, confirming patient identity, side, procedure, and administration of antibiotics. Antibiotic treatment had been initiated on the floor and therefore no further antibiotics were given. An incision was created directly over the previous well-healed wound. Incision was carried through skin and into subcu tissues and down to bursa. Bursal tissue was not grossly infected; however, there was a mild amount of fluid within the olecranon bursa which was cultured 2 . In addition, suspicious material within the olecranon bursa was resected sharply with a knife. This was mainly soft tissue. There was no involvement of the underlying bone or triceps tendon. Hemostasis was obtained with electrocautery. No pneumo tourniquet was used throughout the case. Wound was loosely closed over a Hemovac drain using interrupted 4-0 nylon sutures. Sterile dressing was applied followed by minimally compressive Jam wrap and sling. Patient tolerated the procedure well and taken to recovery room in stable condition. Sponge and needle counts were correct
== END 2017-12-01 16:02 | disposition home or self-care (01) ==
LOC: OR 08:54 → 3SUR 12:38 → OR 23:37
PROVIDERS: ADMIT Orthopaedic Surgery; ATTEND Orthopaedic Surgery
DX: M71.122 Other infective bursitis, left elbow (principal); L03.114 Cellulitis of left upper limb; A49.01 Methicillin susceptible Staphylococcus aureus infection, unspecified site; I10 Essential (primary) hypertension; G25.81 Restless legs syndrome; E78.00 Pure hypercholesterolemia, unspecified; F41.9 Anxiety disorder, unspecified; E66.9 Obesity, unspecified; Z68.36 Body mass index [BMI] 36.0-36.9, adult; G47.30 Sleep apnea, unspecified; Z99.89 Dependence on other enabling machines and devices; E78.5 Hyperlipidemia, unspecified; M19.90 Unspecified osteoarthritis, unspecified site; H57.9 Unspecified disorder of eye and adnexa; Z79.1 Long term (current) use of non-steroidal anti-inflammatories (NSAID); Z79.899 Other long term (current) drug therapy; Z87.891 Personal history of nicotine dependence; Z86.14 Personal history of Methicillin resistant Staphylococcus aureus infection; Z86.73 Personal history of transient ischemic attack (TIA), and cerebral infarction without residual deficits; Z86.79 Personal history of other diseases of the circulatory system; Z82.49 Family history of ischemic heart disease and other diseases of the circulatory system
CPT/HCPCS: 24105; 94760; 80048 ×4; 85025; 87070; 87205; 87075; 87102; 73080; G0378 ×4; J2250; J3370; J2270 ×4; J1200; J1100; J2175; J2405; J2001; J1650 ×3; J2020 ×3; J3010; J2704

== ENCOUNTER 2024-03-30 08:33 | Day surgery (SDC) | payer BC ==
[2024-03-26 09:07] VITALS: BMI 28.0
[~2024-03-30 08:33] MED LIST changes: +LACTATED RINGERS 1,000 ML IV SCH; +LIDOCAINE 1% (10MG/ML) FOR IV START INTRADERMA PRN; -Pre Op ABX Message 1 EACH MISC MISCELLANE ONE
[2024-03-30 09:00] VITALS: RESP 16; TEMP 96.5
[2024-03-30] MEDS ORDERED: PROPOFOL 10 MG/ML 20 ML VIAL IV ONE (10:00)
--- NOTE | 2024-03-30 10:11 | P.PCN ---
Date of Procedure: 03/30/24 Procedure(s) Performed: BRIEF HISTORY: Patient is a 49-year-old pleasant white male scheduled for an elective colonoscopy as a part of screening for colon cancer. PROCEDURE PERFORMED: Colonoscopy. PREOPERATIVE DIAGNOSIS: Screening for colon cancer. IV sedation per Anesthesia. PROCEDURE: After informed consent was obtained, the patient, was brought into the endoscopy unit. IV sedation was administered by Anesthesia under continuous monitoring. Digital rectal examination was normal. Initially the Olympus CF-160 flexible video colonoscope was then inserted in the rectum, gradually advanced into the cecum without any difficulty. Careful examination was performed as the scope was gradually being withdrawn. Ileocecal valve and the appendiceal orifice were visualized and appeared normal. Prep was excellent. Mucosa of the cecum, ascending colon, transverse colon, descending colon, sigmoid colon, and rectum appeared normal. Retroflexion was performed in the rectum and no lesions were seen. The patient tolerated the procedure well. IMPRESSION: Normal-appearing colon from rectum to cecum with no evidence of colorectal neoplasia. RECOMMENDATIONS: Findings of this examination were discussed with the patient as well as his family. He was advised to have repeat screening colonoscopy in 10 years.
[2024-03-30] MEDS: IV FLUID CONTINUATION 1,000 ML IV ONE (10:14)
[2024-03-30 10:29] VITALS: BP 112/76; PULSE 70
== END 2024-03-30 10:44 | disposition home or self-care (01) ==
LOC: ORWHC2ENDO 08:33
PROVIDERS: ATTEND Internal Medicine Gastroenterology
DX: Z12.11 Encounter for screening for malignant neoplasm of colon (principal); I10 Essential (primary) hypertension; E78.5 Hyperlipidemia, unspecified; G47.33 Obstructive sleep apnea (adult) (pediatric); F41.9 Anxiety disorder, unspecified; M19.90 Unspecified osteoarthritis, unspecified site; Z79.1 Long term (current) use of non-steroidal anti-inflammatories (NSAID); Z79.899 Other long term (current) drug therapy; Z98.890 Other specified postprocedural states
CPT/HCPCS: 45378